=== PATIENT | female | born 1955 | race Caucasian/White ===

== ENCOUNTER 2020-05-08 07:46 | Outpatient (REF) | payer OTHER, SELFPAY ==
--- NOTE | ~2020-05-08 | XR_ITS ---
EXAMINATION: XR HIP, LEFT CLINICAL INFORMATION: Osteoarthritis left hip COMPARISON: None TECHNIQUE: Two views of the left hip and one view of the pelvis. FINDINGS: Bone alignment is normal. No fracture or dislocation is seen. The hip joints are normal appearing. Bones of the pelvis are normal. There are degenerative changes of the visualized lower lumbar spine. Soft tissues are unremarkable. XR/XR hip LT w PEL1V IMPRESSION: Normal left hip.
[2020-05-08 11:09] LABS: MANUAL DIFF FLAG NO
[2020-05-08 11:25] LABS: Basophils Percent Auto 0.6 % (0-2); Eosinophils Absolute Auto 0.2 X10*3/uL (0.0-0.4); Eosinophils Percent Auto 2.3 % (0-4); Hematocrit 42.4 % (37-47); Hemoglobin 14.2 g/dl (12.0-16.0); Imm Gran Abs Auto 0.02 X10*3/uL (0.00-0.03); Imm Gran Pct Auto 0.3 % (0.0-0.4); Lymphocytes Absolute Auto 2.4 X10*3/uL (1.2-4.9); Lymphocytes Percent Auto 34.9 % (20-40); Mean Corpuscular HGB Conc 33.5 g/dl (31.0-35.0); Mean Corpuscular Hemoglobin 29.6 pg (27.0-33.0); Mean Corpuscular Volume 88.5 fL (80-98); Mean Platelet Volume 10.2 fL (9.4-12.3); Monocytes Absolute Auto 0.5 X10*3/uL (0.1-1.2); Monocytes Percent Auto 7.9 % (2-11); Neutrophils Absolute Auto 3.7 X10*3/uL (2.0-8.3); Platelet Count 286 X10*3/uL (160-400); Red Blood Count 4.79 X10*6/uL (4.20-5.50); Red Cell Distribution Width 12.9 % (11.0-16.0); White Blood Count 6.8 X10*3/uL (4.8-10.8)
[2020-05-08 11:55] LABS: Microalbum/Creatinine Ratio Ur 12.6 ug/mg cr
[2020-05-08 12:11] LABS: Thyroid Stimulating Hormone 1.72 uIU/mL (0.32-4.0)
[2020-05-08 12:12] LABS: Alanine Aminotransferase 21 U/L (0-31); Albumin Level 4.4 g/dL (3.5-5.0); Alkaline Phosphatase 105 U/L (39-117); Anion Gap 16 (12-20); Aspartate Amino Transferase 25 U/L (5-31); Bilirubin Total 0.7 mg/dL (0.0-1.0); Blood Urea Nitrogen 11 mg/dL (9-16); Calcium 9.3 mg/dL (8.4-10.2); Carbon Dioxide 28 mmol/L (22-29); Chloride 102 mmol/L (96-108); Cholesterol 176 mg/dL; Estimated Glomerular Filt Rate > 60; Glucose Fasting 82 mg/dL (60-99); HDL Cholesterol 57 mg/dL; LDL Cholesterol Calculated 96 mg/dl; Sodium 142 mmol/L (135-145); Total Protein 7.2 g/dL (6.5-8.0); Triglycerides 115 mg/dL
== END 2020-05-08 07:47 | disposition home or self-care (01) ==
LOC: HO.HMGCLDS 07:46
PROVIDERS: PCP Internal Medicine; Visit Provider Internal Medicine
DX: M16.12 Unilateral primary osteoarthritis, left hip (principal); I10 Essential (primary) hypertension; E66.01 Morbid (severe) obesity due to excess calories
CPT/HCPCS: 36415; 73502; 80053; 80061; 82043; 84443; 85025

== ENCOUNTER 2020-07-01 15:57 | Outpatient (REF) | payer OTHER, SELFPAY ==
--- NOTE | ~2020-07-01 | MM_ITS ---
EXAMINATION: MM SCREENING DIGITAL BREAST TOMOSYNTHESIS, BILATERAL CLINICAL INFORMATION: Screening. Asymptomatic. The lifetime risk of breast cancer based on the Tyrer-Cuzick Model is 13%. COMPARISON: Mammography: 01/02/2019, 12/08/2017, 11/09/2016 targeted left breast ultrasound 11/13/2016. TECHNIQUE: Digital breast tomosynthesis is performed in both the craniocaudal and mediolateral oblique views along with computer-aided detection (CAD). Synthesized 2D images are generated from the tomosynthesis. Additional left MLO view is provided. FINDINGS: There are scattered areas of fibroglandular density (ACR BI-RADS breast composition Category b). There are no significant masses, abnormal calcifications, or other abnormalities. There is a known cyst central 12:00 left breast just under 1 cm similar to prior exam. The bilateral parenchymal pattern is similar to prior studies. No developing density. There is biopsy clip marker again noted posterior upper outer left breast. The axilla and skin contours are unremarkable. MM/MM tomosynthesis screening BI IMPRESSION: No mammographic evidence of malignancy. ASSESSMENT: BI-RADS 2: Benign RECOMMENDATION: Routine annual mammography screening. This patient's information was entered into a reminder system with a target due date for their next mammogram.
== END 2020-07-01 15:58 | disposition home or self-care (01) ==
LOC: HO.MAMMO 15:57
PROVIDERS: Visit Provider Internal Medicine
DX: Z12.31 Encounter for screening mammogram for malignant neoplasm of breast (principal)
CPT/HCPCS: 77063; 77067

== ENCOUNTER 2020-10-22 12:57 | Outpatient (REF) | payer OTHER, SELFPAY ==
[2020-10-22 13:44] LABS: Hematocrit 40.9 % (37-47); Mean Corpuscular HGB Conc 34.2 g/dl (31.0-35.0); Mean Corpuscular Hemoglobin 30.1 pg (27.0-33.0); Mean Platelet Volume 9.3 fL (9.4-12.3); Platelet Count 287 X10*3/uL (160-400); Red Blood Count 4.65 X10*6/uL (4.20-5.50); Red Cell Distribution Width 13.2 % (11.0-16.0); White Blood Count 9.2 X10*3/uL (4.8-10.8)
[2020-10-22 14:02] LABS: Alanine Aminotransferase 22 U/L (0-31); Albumin Level 4.3 g/dL (3.5-5.0); Alkaline Phosphatase 101 U/L (39-117); Anion Gap 13 (12-20); Aspartate Amino Transferase 19 U/L (5-31); Bilirubin Direct 0.3 mg/dL (0.0-0.5); Bilirubin Total 0.6 mg/dL (0.0-1.0); Blood Urea Nitrogen 13 mg/dL (9-16); Carbon Dioxide 29 mmol/L (22-29); Chloride 105 mmol/L (96-108); Cholesterol 185 mg/dL; Estimated Glomerular Filt Rate > 60; Glucose Random 89 mg/dL (60-115); HDL Cholesterol 63 mg/dL; LDL Cholesterol Calculated 105 mg/dl; Potassium 4.1 mmol/L (3.3-5.1); Sodium 143 mmol/L (135-145); Total Protein 7.1 g/dL (6.5-8.0); Triglycerides 85 mg/dL
[2020-10-22 14:23] LABS: Thyroid Stimulating Hormone 1.32 uIU/mL (0.32-4.0)
[2020-10-22 16:05] LABS: Glucose Urine UA NEG (NEG); Leukocyte Esterase Urine 1+ (NEG); Nitrite Urine NEG (NEG); Specific Gravity - Urine >= 1.030 (1.005-1.025); Urine Blood NEG (NEG); Urine Ketones NEG (NEG); Urine Protein NEG (NEG-TRACE)
[2020-10-22 16:06] LABS: Appearance Urine HAZY; Color Urine YELLOW
[2020-10-22 16:18] LABS: Bacteria Urine 1+ /LPF; Calcium Oxalate Crystals Urine TRACE /LPF; Mucus Urine 3+ /LPF; RBC Urine 0 /HPF (0); Renal Epithelial Cells Urine TRACE /LPF; Squamous Epithelial Cell Urine 1+ /LPF
== END 2020-10-22 12:58 | disposition home or self-care (01) ==
LOC: HO.LAB 12:57
PROVIDERS: PCP Internal Medicine; Visit Provider Internal Medicine
DX: I10 Essential (primary) hypertension (principal); K21.9 Gastro-esophageal reflux disease without esophagitis; M16.12 Unilateral primary osteoarthritis, left hip
CPT/HCPCS: 36415; 80048; 80061; 80076; 81001; 81003; 84443; 85027

== ENCOUNTER 2021-05-22 07:12 | Outpatient (REF) | payer OTHER, SELFPAY ==
--- NOTE | ~2021-05-22 | US_ITS ---
EXAMINATION: US ABDOMEN COMPLETE CLINICAL INFORMATION: Abnormal levels of other serum enzymes. COMPARISON: None. TECHNIQUE: Real-time imaging of the abdominal viscera. FINDINGS: PANCREAS: The body and the tail of pancreas is not visualized. The head of the pancreas appears homogeneous in echotexture. ABDOMINAL AORTA: The mid and the distal abdominal aorta are normal caliber. The proximal area is not seen. INFERIOR VENA CAVA: Visualized portions are normal. LIVER: Normal. The liver is normal in size. The liver contour is normal. Parenchymal echogenicity is normal. No focal hepatic lesion. There is no intrahepatic biliary duct dilatation seen. GALLBLADDER: The gallbladder is significantly contracted and cannot be fully evaluated. COMMON BILE DUCT: Normal in caliber measuring 0.3 cm in diameter. RIGHT KIDNEY: Normal. No hydronephrosis. No renal calculi or focal parenchymal lesions. The kidney measures 10.4 cm in maximum dimension. LEFT KIDNEY: Normal. No hydronephrosis. No renal calculi or focal parenchymal lesions. The kidney measures 10.7 cm in maximum dimension. SPLEEN: Normal. The spleen measures 9.3 cm in maximum dimension. FREE FLUID: None. US/US abdomen complete IMPRESSION: Significantly contracted gallbladder precludes further evaluation. The head of the pancreas is unremarkable. The body and the tail of pancreas and the proximal abdominal aorta are not visualized. The rest of the abdominal ultrasound is unremarkable
[2021-05-22 07:54] LABS: Hematocrit 40.3 % (37.0-47.0); Hemoglobin 13.6 g/dl (12.0-16.0); Mean Corpuscular HGB Conc 33.7 g/dl (31.0-35.0); Mean Corpuscular Volume 88.8 fL (80.0-98.0); Mean Platelet Volume 9.5 fL (9.4-12.3); Platelet Count 250 X10*3/uL (160-400); Red Blood Count 4.54 X10*6/uL (4.20-5.50); White Blood Count 5.7 X10*3/uL (4.8-10.8)
[2021-05-22 08:29] LABS: Alanine Aminotransferase 21 U/L (0-31); Albumin Level 4.3 g/dL (3.5-5.0); Alkaline Phosphatase 107 U/L (39-117); Anion Gap 12 (12-20); Aspartate Amino Transferase 21 U/L (5-31); Bilirubin Direct 0.3 mg/dL (0.0-0.5); Bilirubin Total 0.9 mg/dL (0.0-1.0); Blood Urea Nitrogen 12 mg/dL (9-16); Calcium 9.8 mg/dL (8.4-10.2); Carbon Dioxide 30 mmol/L (22-29); Chloride 103 mmol/L (96-108); Cholesterol 195 mg/dL; Estimated Glomerular Filt Rate > 60; Glucose Random 87 mg/dL (60-115); HDL Cholesterol 58 mg/dL; LDL Cholesterol Calculated 124 mg/dl; Sodium 141 mmol/L (135-145); Total Protein 7.1 g/dL (6.5-8.0); Triglycerides 68 mg/dL
[2021-05-22 08:41] LABS: Thyroid Stimulating Hormone 2.42 uIU/mL (0.32-4.0)
[2021-05-22 09:58] LABS: Appearance Urine HAZY; Color Urine YELLOW; Glucose Urine UA NEG (NEG); Leukocyte Esterase Urine 2+ (NEG); Nitrite Urine NEG (NEG); PH 6.5 (5.0-8.0); Specific Gravity - Urine 1.025 (1.005-1.025); Urine Blood TRACE (NEG); Urine Ketones NEG (NEG); Urine Protein TRACE MG/DL (NEG-TRACE)
[2021-05-22 11:00] LABS: Mucus Urine 2+ /LPF; Squamous Epithelial Cell Urine 1+ /LPF
== END 2021-05-22 07:13 | disposition home or self-care (01) ==
LOC: HO.US 07:12
PROVIDERS: PCP Internal Medicine; Visit Provider Internal Medicine
DX: K21.9 Gastro-esophageal reflux disease without esophagitis (principal); K80.20 Calculus of gallbladder without cholecystitis without obstruction; R74.8 Abnormal levels of other serum enzymes; I10 Essential (primary) hypertension
CPT/HCPCS: 36415; 76700; 80048; 80061; 80076; 81001; 84443; 85027

== ENCOUNTER 2021-07-04 07:18 | Outpatient (REF) | payer OTHER, SELFPAY ==
--- NOTE | ~2021-07-04 | MM_ITS ---
EXAMINATION: MM SCREENING DIGITAL BREAST TOMOSYNTHESIS, BILATERAL CLINICAL INFORMATION: Screening. Asymptomatic. The lifetime risk of breast cancer based on the Tyrer-Cuzick Model is 15%. COMPARISON: Mammography: 07/01/2020, 01/02/2019, 12/08/2017; targeted left breast ultrasound 11/13/2016 TECHNIQUE: Digital breast tomosynthesis is performed in both the craniocaudal and mediolateral oblique views along with computer-aided detection (CAD). Synthesized 2D images are generated from the tomosynthesis. FINDINGS: There are scattered areas of fibroglandular density (ACR BI-RADS breast composition Category b). There is fine fibronodular parenchymal pattern without architectural abnormality or significant mass. There is a chronic smooth nodule central left breast consistent with cysts on prior ultrasound.There are no abnormal calcifications. Biopsy clip marker again seen posterior upper outer left breast. The axilla and skin contours are unremarkable. Small dermal lesion again noted overlying the anterior upper right breast. MM/MM tomosynthesis screening BI IMPRESSION: No mammographic evidence of malignancy. ASSESSMENT: BI-RADS 2: Benign RECOMMENDATION: Routine annual mammography screening. This patient's information was entered into a reminder system with a target due date for their next mammogram.
== END 2021-07-04 07:19 | disposition home or self-care (01) ==
LOC: HO.MAMMO 07:18
PROVIDERS: Visit Provider Internal Medicine
DX: Z12.31 Encounter for screening mammogram for malignant neoplasm of breast (principal)
CPT/HCPCS: 77063; 77067

== ENCOUNTER 2022-03-25 07:12 | Outpatient (REF) | payer MEDICARE, SELFPAY ==
[2022-03-25 08:09] LABS: Alanine Aminotransferase 18 U/L (0-31); Albumin Level 4.1 g/dL (3.5-5.0); Alkaline Phosphatase 102 U/L (39-117); Anion Gap 16 (12-20); Aspartate Amino Transferase 19 U/L (5-31); Bilirubin Total 0.8 mg/dL (0.0-1.0); Blood Urea Nitrogen 14 mg/dL (9-16); Calcium 10.1 mg/dL (8.4-10.2); Carbon Dioxide 27 mmol/L (22-29); Chloride 103 mmol/L (96-108); Cholesterol 176 mg/dL; Estimated Glomerular Filt Rate > 60; Glucose Fasting 94 mg/dL (60-99); HDL Cholesterol 56 mg/dL; LDL Cholesterol Calculated 108 mg/dl; Sodium 142 mmol/L (135-145); Total Protein 6.7 g/dL (6.5-8.0); Triglycerides 62 mg/dL
[2022-03-25 10:15] LABS: Lipase 41 U/L (8-78)
[2022-03-25 10:52] LABS: Folate 18.4 ng/mL (> or = 4.0); TSH reflex Free T4 2.21 uIU/mL (0.32-4.0); Vitamin B12 570 pg/mL (200-900)
[2022-03-26 13:28] LABS: Transglutaminase Ab IgG <1.0 U/mL; Transglutaminase IgA <1.0 U/mL
[2022-03-30 15:14] LABS: Vitamin D 25-OH, D2 <4 ng/mL; Vitamin D 25-OH, D3 36 ng/mL; Vitamin D 25-OH, Total 36 ng/mL (30-100)
== END 2022-03-25 07:13 | disposition home or self-care (01) ==
LOC: HO.LAB 07:12
PROVIDERS: Absent Provider Nurse Practitioner Family; PCP Internal Medicine; Visit Provider Nurse Practitioner Family
DX: R10.11 Right upper quadrant pain (principal); R19.7 Diarrhea, unspecified; K59.00 Constipation, unspecified; K21.9 Gastro-esophageal reflux disease without esophagitis; E55.9 Vitamin D deficiency, unspecified; I10 Essential (primary) hypertension
CPT/HCPCS: 36415; 80053; 80061; 82306; 82607; 82746; 83690; 84443; 86364; 99202

== ENCOUNTER 2022-03-30 10:29 | Outpatient (REF) | payer MEDICARE, SELFPAY ==
[2022-04-06 21:18] LABS: Pancreatic Elastase-1 >500 mcg/g
== END 2022-03-30 10:30 | disposition home or self-care (01) ==
LOC: HO.LNP 10:29
PROVIDERS: Visit Provider Nurse Practitioner Family
DX: R10.9 Unspecified abdominal pain (principal); K21.9 Gastro-esophageal reflux disease without esophagitis
CPT/HCPCS: 82656; 87338

== ENCOUNTER → 2022-04-13 07:39 | Outpatient (REF) | payer MEDICARE, SELFPAY ==
--- NOTE | ~2022-04-13 | NM_ITS ---
EXAMINATION: BILIARY TRACT IMAGING STUDY CLINICAL INFORMATION: Gastroesophageal reflux disease without esophagitis. Right upper quadrant pain, GERD for 6 months.. Pain is intermittent. COMPARISON: No previous biliary scan is available for comparison. Abdominal ultrasound dated 05/22/2021 is available for comparison.. TECHNIQUE: Serial gamma scintillation camera images were obtained over the abdomen for a total observation period of 2 hours following the intravenous administration of 5.0 mCi Tc-99m Mebrofenin. FINDINGS: There is good concentration of activity in the liver by 5 minutes post injection. Biliary activity is visualized by 15 minutes. Small bowel is well visualized by 25 minutes. The gallbladder is not visualized at any time up to 2 hours post injection. On the delayed images at 2 hours there is almost complete clearance of activity from the liver and visualization of diffuse small bowel activity. NM/NM hepatobiliary wo pharm IMPRESSION: Nonvisualization the gallbladder is evidence of an obstructed cystic duct and strong evidence to suggest the diagnosis of acute cholecystitis. This can also be seen in chronic cholecystitis. The common bile duct is patent. Liver function appears normal. Because the gallbladder did not visualize, CCK stimulation and gallbladder ejection fraction were not performed.
== END ==
LOC: HO.NUCMED 07:39
PROVIDERS: PCP Internal Medicine; Visit Provider Nurse Practitioner Family
DX: K21.9 Gastro-esophageal reflux disease without esophagitis (principal); R10.11 Right upper quadrant pain
CPT/HCPCS: 78226; A9537

== ENCOUNTER 2022-04-14 15:01 | Outpatient (REF) | payer MEDICARE, SELFPAY ==
[2022-04-14 16:42] LABS: MANUAL DIFF FLAG NO
[2022-04-14 17:22] LABS: Basophils Absolute Auto 0.1 X10*3/uL (0.0-0.2); Basophils Percent Auto 0.5 % (0-2); Eosinophils Absolute Auto 0.2 X10*3/uL (0.0-0.4); Eosinophils Percent Auto 1.6 % (0-4); Hematocrit 41.1 % (37.0-47.0); Hemoglobin 14.1 g/dl (12.0-16.0); Imm Gran Abs Auto 0.02 X10*3/uL (0.00-0.03); Imm Gran Pct Auto 0.2 % (0.0-0.4); Lymphocytes Absolute Auto 3.7 X10*3/uL (1.2-4.9); Lymphocytes Percent Auto 38.7 % (20-40); Mean Corpuscular HGB Conc 34.3 g/dl (31.0-35.0); Mean Corpuscular Hemoglobin 29.7 pg (27.0-33.0); Mean Corpuscular Volume 86.7 fL (80.0-98.0); Mean Platelet Volume 9.8 fL (9.4-12.3); Monocytes Absolute Auto 0.6 X10*3/uL (0.1-1.2); Monocytes Percent Auto 6.7 % (2-11); Neutrophils Percent Auto 52.3 % (45-73); Platelet Count 293 X10*3/uL (160-400); Red Blood Count 4.74 X10*6/uL (4.20-5.50); White Blood Count 9.5 X10*3/uL (4.8-10.8)
[2022-04-14 17:31] LABS: Alanine Aminotransferase 18 U/L (0-31); Albumin Level 4.1 g/dL (3.5-5.0); Alkaline Phosphatase 125 U/L (39-117); Aspartate Amino Transferase 18 U/L (5-31); Bilirubin Direct < 0.2 mg/dL (0.0-0.5); Bilirubin Total 0.4 mg/dL (0.0-1.0); Gamma Glutamyl Transpeptidase 18 U/L (7-33)
== END 2022-04-14 15:02 | disposition home or self-care (01) ==
LOC: HO.HMGCLDS 15:01
PROVIDERS: PCP Internal Medicine; Visit Provider Nurse Practitioner Family
DX: R10.9 Unspecified abdominal pain (principal); R74.8 Abnormal levels of other serum enzymes; K80.20 Calculus of gallbladder without cholecystitis without obstruction
CPT/HCPCS: 36415; 80076; 82977; 85025

== ENCOUNTER → 2022-04-16 08:22 | Outpatient (BNVA) | payer MEDICARE, SELFPAY | PROVIDERS: PCP Internal Medicine; Referring Provider Nurse Practitioner Family; Visit Provider Surgery | DX: K81.1 Chronic cholecystitis (principal) | CPT/HCPCS: 99202 ==

== ENCOUNTER 2022-04-29 05:56 | Day surgery (SDC) | payer MEDICARE, SELFPAY ==
[2022-04-23 14:15] VITALS: BMI 31.8
--- NOTE | 2022-04-28 12:57 | HO.ANESPROP2 ---
Documented by User: Lupe Serna NP 04/28/22 12:59 HPI - Anesthesia Eval Consult details Narrative: 66yo F for Cholecystectomy Laparoscopic possible open PMFSH Active Problems Active Problems: All Active Problems (Updated 04/16/22 @ 09:07 by Nash Emmanuel MD) Annual physical exam (Acute) Cholelithiasis (Acute) Obesity (BMI 30.0-34.9) (Acute) Chronic cholecystitis (Acute) Class 2 severe obesity with body mass index (BMI) of 35 to 39.9 with serious comorbidity (Acute) Osteoarthritis of left hip (Acute) GERD (gastroesophageal reflux disease) (Acute) Essential (primary) hypertension (Acute) Past Medical History Medical History Class 2 severe obesity with body mass index (BMI) of 35 to 39.9 with serious comorbidity Essential (primary) hypertension GERD (gastroesophageal reflux disease) Osteoarthritis of left hip Family History Family History Father No problems noted. Mother No problems noted. Sister Breast cancer, Onset Age: 60 Maternal Grandmother Breast cancer Maternal Aunt Breast cancer Paternal Aunt Breast cancer Son No problems noted. Brother Heart attack Family/Other Breast cancer Surgical History Surgical History (Updated 04/23/22 @ 14:20 by Elvia Pretty RN) History of esophagogastroduodenoscopy (EGD) History of hysterectomy History of lumpectomy of left breast History of removal of cyst History of tubal ligation Social History Social History Housing: Condominium Alcohol intake: current Alcohol intake frequency: a few times a month Patient Tobacco Use Status: Never used Tobacco e-Cigarette/Vaping Use: Never Used Second Hand Smoke Exposure: Yes Use of substances other than those prescribed or required for medical reasons: No Are you DNR?: No Advance Directives: No Advance Directives Information Provided: Yes Recently lost weight without trying: No Nutrition Risks: No Nutritional Risk service: No Current occupational status: employed Current occupation: accounts payable, babysit Cognitive needs: No Hearing needs: No Vision needs: Yes (glasses) Meds Allergies Allergy/AdvReac Type Severity Reaction Status Date / Time No Known Allergies Allergy Verified 04/22/22 13:29 Home Medications Medication Instructions Recorded Confirmed Last Taken Type calcium citrate 315 mg-vitamin D3 1 tab PO DAILY 01/29/20 04/23/22 Unknown History 5 mcg (200 unit) tablet Exam Exam Date and Time: April 28, 2022 1257 Height,Weight and Vital Signs: Height 5 ft 2 in Weight 78.925 kg Pertinent Lab Results Pertinent Lab Results: Laboratory Tests 03/25/22 04/14/22 07:20 15:07 WBC 9.5 Hgb 14.1 Hct 41.1 Plt Count 293 Sodium 142 Potassium 4.0 Chloride 103 Carbon Dioxide 27 BUN 14 Creatinine 0.70 Assessment and Plan Assessment Anesthesia Assessment: Chart Reviewed Documented by User: Casandra Yo MD 04/29/22 10:39 [facility] Past Medical History Medical History Class 2 severe obesity with body mass index (BMI) of 35 to 39.9 with serious comorbidity Essential (primary) hypertension GERD (gastroesophageal reflux disease) Osteoarthritis of left hip Family History Family History Father No problems noted. Mother No problems noted. Sister Breast cancer, Onset Age: 60 Maternal Grandmother Breast cancer Maternal Aunt Breast cancer Paternal Aunt Breast cancer Son No problems noted. Brother Heart attack Family/Other Breast cancer Family history of problems with anesthesia: No Surgical History Surgical History (Updated 04/23/22 @ 14:20 by Elvia Pretty, PARMINDER) History of esophagogastroduodenoscopy (EGD) History of hysterectomy History of lumpectomy of left breast History of removal of cyst History of tubal ligation History of Problems with Anesthesia: No Social History Social History Housing: Condominium Alcohol intake: current Alcohol intake frequency: a few times a month Patient Tobacco Use Status: Never used Tobacco e-Cigarette/Vaping Use: Never Used Second Hand Smoke Exposure: Yes Use of substances other than those prescribed or required for medical reasons: No Are you DNR?: No Advance Directives: No Advance Directives Information Provided: Yes Recently lost weight without trying: No Nutrition Risks: No Nutritional Risk service: No Current occupational status: employed 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, babysit Cognitive needs: No Hearing needs: No Vision needs: Yes (glasses) Meds Allergies Allergy/AdvReac Type Severity Reaction Status Date / Time No Known Allergies Allergy Verified 04/22/22 13:29 Home Medications Medication Instructions Recorded Confirmed Last Taken Type calcium citrate 315 mg-vitamin D3 1 tab PO DAILY 01/29/20 04/23/22 Unknown History 5 mcg (200 unit) tablet Exam Airway Mallampati Class: II TM Dist: >3cm Neck ROM: Full Heart: rr Assessment and Plan Final Anesthetic Review Family History of Problems with Anesthesia: No History of Problems with Anesthesia: No NPO: Yes ASA Class: II Final Preanesthetic Review: No Changes in Pt Med Stat, Meds/Allgs Chart Reviewed, Consent Obtained/Reviewed and Anes Risks/Benef Reviewed Patient Risk: Low Procedure Risk: Low Anesthetic Plan Anesthetic Plan: GA Disposition: Standard PACU
[2022-04-29] VITALS (12 sets, daily range): BP systolic 150–179; BP diastolic 87–94; PULSE 67–79; RESP 16–18; TEMP 36.1–36.6; O2SAT 95–99; BMI 32.3
[2022-04-29] MEDS: Lactated Ringers 1,000 ML 100 ML IVCONT (06:40)
--- NOTE | 2022-04-29 07:28 | MHC.SHP ---
Pre-Procedural Eval Section A Date of Service: 04/29/22 The patient is an INPATIENT: No Changes since office visit: Yes Patient answered all questions; No Cold of Flu in the past 2 weeks, No New Medical Problems and No Changes in Medication The History & Physical has been completed within 30 days and I have reviewed it.: Yes Section B Chief Complaint: Chronic cholecystitis Allergies: Allergies Allergy/AdvReac Type Severity Reaction Status Date / Time No Known Allergies Allergy Verified 04/22/22 13:29 Plan Diagnosis/Plan: Unchanged I have reviewed the history and physical and performed a pertinent physical examination on my patient. No changes have occurred unless specified. Time Spent With Patient Time: Total time managing care of this patient today ____ minutes.
--- NOTE | 2022-04-29 07:39 | P.OP_ITS ---
Operative Note Operative Note Date of Service: 04/29/22 Narrative: Preoperative diagnosis: chronic cholecystitis Postoperative diagnosis: Same Procedure: Laparoscopic cholecystectomy Surgeon: Nash Emmanuel MD Grocery Bagger: CHANDLER Pandey; PORSCHE Koenig Anesthesia: General endotracheal Indications for procedure: 66-year-old female patient presenting with episodes of abdominal pain in the right upper quadrant found to have multiple gallstones within the gallbladder. Examination was consistent with a chronic cholecystitis due to cholelithiasis. Operative findings: Evidence of adhesions to the gallbladder surface suggestive of chronic cholecystitis. Multiple small gallbladder stones noted within the gallbladder. Specimen: gallbladder Estimated blood loss: Less than 2 mL Complications: non Procedure details: Patient was brought to the OR and placed in a supine position. After administering general anesthesia the patient's abdomen was prepped with ChloraPrep and draped in a sterile fashion. Local anesthesia consisting of 0.5% Sensorcaine without epinephrine was infiltrated in a periumbilical region. A 5 mm incision was made above the umbilicus in a transverse fashion. The Veress needle was then inserted while elevating abdominal cavity with towel clips. After positive drop test the abdomen was insufflated to a pressure of 15 mm of mercury. The Veress needle was then removed and a 5 mm trocar inserted. The camera was inserted in the abdomen explored. A 12 mm trocar was then placed in the epigastrium. Two 5 mm trocars placed in the right upper quadrant by the seed laboratory assistant. The patient was placed in reverse Trendelenburg positioning and rotated to the left. The gallbladder was grasped with the fundus and retracted cephalad by the seed laboratory assistant. The infundibulum was then grasped and retracted away from the liver bed, also by the seed laboratory assistant. The Dolphin dissected was then used by the surgeon to dissect the peritoneum off the infundibulum to reveal the junction with the cystic duct. Cystic artery was noted slightly medial and posterior to the cystic duct. After obtaining a critical view the cystic duct was doubly clipped and divided. The cystic artery was then doubly clipped and divided. The gallbladder was then dissected off the liver bed using electrocautery with an L hook. Hemostasis was assured all times using the electrocautery. When the gallbladder is completely dissected off the liver bed was placed in an Endo-Catch bag and brought out through the epigastric incision. The gallbladder was sent to pathology for further examination. The abdomen was then re-examined. The liver bed was irrigated and suctioned dry. No bleeding or bile leak could be identified. CO2 was then evacuated and all trocars removed. Skin was closed in all incisions using a subcuticular 4 0 Polysorb suture by both the surgeon and seed laboratory assistant. Sterile dressings consisting of Steri-Strips, 2 x 2 gauze, and Tegaderm were then applied. The patient tolerated the procedure well. Sponge instrument and needle counts reported as correct. The patient was transferred to PACU in stable condition.
[2022-04-29] MEDS: fentaNYL citrate/PF 100 MCG/2 ML VIAL 25 MCG IVPUSH ×3 (08:53→09:17)
[2022-04-29] MEDS: oxyCODONE HCl Immed Release 5 MG TABLET PO (09:00)
== END 2022-04-29 10:43 | disposition home or self-care (01) ==
PROVIDERS: PCP Internal Medicine; Visit Provider Surgery
PROC: 0FT44ZZ Resection of Gallbladder, Percutaneous Endoscopic Approach (ICD-10-PCS; CPT 47562; principal; 2022-04-29 07:30)
DX: K80.10 Calculus of gallbladder with chronic cholecystitis without obstruction (principal); K82.8 Other specified diseases of gallbladder; I10 Essential (primary) hypertension; K21.9 Gastro-esophageal reflux disease without esophagitis; E66.8 Other obesity; Z68.31 Body mass index [BMI] 31.0-31.9, adult; M16.12 Unilateral primary osteoarthritis, left hip; Z79.899 Other long term (current) drug therapy; Z98.51 Tubal ligation status; Z90.710 Acquired absence of both cervix and uterus
CPT/HCPCS: 47562; 88304; J1100; J2250; J2405; J3010

== ENCOUNTER → 2022-05-07 14:06 | Outpatient (BNVA) | payer MEDICARE, SELFPAY | PROVIDERS: PCP Internal Medicine; Referring Provider Internal Medicine; Visit Provider Surgery | DX: Z13.89 Encounter for screening for other disorder (principal) ==

== ENCOUNTER → 2022-05-27 08:46 | Outpatient (BNVA) | payer MEDICARE, SELFPAY | PROVIDERS: PCP Internal Medicine; Visit Provider Nurse Practitioner Family | DX: Z13.89 Encounter for screening for other disorder (principal) ==

== ENCOUNTER 2022-07-15 07:21 | Outpatient (REF) | payer MEDICARE, SELFPAY ==
--- NOTE | ~2022-07-15 | MM_ITS ---
EXAMINATION: MM SCREENING DIGITAL BREAST TOMOSYNTHESIS, BILATERAL CLINICAL INFORMATION: Screening. Asymptomatic. The lifetime risk of breast cancer based on the Tyrer-Cuzick Model is 15%. COMPARISON: Mammography: 07/04/2021, 07/01/2020, 01/02/2019 TECHNIQUE: Digital breast tomosynthesis is performed in both the craniocaudal and mediolateral oblique views along with computer-aided detection (CAD). Synthesized 2D images are generated from the tomosynthesis. FINDINGS: There are scattered areas of fibroglandular density (ACR BI-RADS breast composition Category b). There are no significant masses, abnormal calcifications, or other abnormalities. No architectural abnormality or developing density or significant change from prior studies. There are scattered parenchymal asymmetries similar to prior studies. Biopsy clip marker again seen posterior upper outer left breast. The axilla and skin contours are unremarkable. MM/MM tomosynthesis screening BI IMPRESSION: No mammographic evidence of malignancy. ASSESSMENT: BI-RADS 2: Benign RECOMMENDATION: Routine annual mammography screening. This patient's information was entered into a reminder system with a target due date for their next mammogram.
== END 2022-07-15 07:22 | disposition home or self-care (01) ==
LOC: HO.MAMMO 07:21
PROVIDERS: PCP Internal Medicine; Visit Provider Internal Medicine
DX: Z12.31 Encounter for screening mammogram for malignant neoplasm of breast (principal)
CPT/HCPCS: 77063; 77067

== ENCOUNTER 2022-09-03 10:07 | Outpatient (AMB) | payer MEDICARE, SELFPAY ==
--- NOTE | 2022-09-03 10:10 | MHC.PC.OV ---
Vital Signs 09/03/22 10:12 Height 5 ft 3 in Weight 176 lb 8 oz BMI 31.3 BP 130/82 Blood Pressure Location Lt brachial Position Sitting Pulse 71 Pulse Source Pulse Oximeter Pulse Oximetry (%) 99 Oxygen Delivery Method Room Air Intake Visit Reasons: cataract surgery 09/10/ & 09/17 Intake Note: Patient is here for a Pre-op for Cataract surgery scheduled with Dr Bellamy on 09/10/22 for right eye and 09/17/22for left eye. Refrigeration Mechanic Required: No Salvage Winder: Not Required per policy Accompanied by: Self / Same As Patient Allergies No Known Allergies Allergy (Verified 09/03/22 12:28) Medication List - Last Reconciled 09/03/22 by David Mendoza MD calcium citrate-vitamin D3 315 mg-5 mcg (200 unit) 1 tab PO DAILY hydrochlorothiazide 25 mg PO DAILY lisinopril 40 mg (2 x 20 mg) PO DAILY omeprazole 20 mg PO DAILY simethicone 125 mg PO BID-QID PRN Tobacco use date assessed: 09/03/22 Fall risk assessment: No Falls in past year Last assessed Fall Risk: 09/03/22 Dental Screening Dental Screen Date: 09/03/22 Did you have a dental visit in the last 12 months?: Yes Did you have a dental problem in the last 6 months where you did not have access to dental care?: No Was dental information given to patient?: Patient has dentist HPI cataract surgery 09/10/ & 09/17 HPI Details 66-year-old female presents to the office for a preop clearance. Patient is scheduled for bilateral cataract extraction. Procedure is to be done under [facility]. [facility] Medical History Class 2 severe obesity with body mass index (BMI) of 35 to 39.9 with serious comorbidity Essential (primary) hypertension GERD (gastroesophageal reflux disease) Osteoarthritis of left hip Surgical History History of esophagogastroduodenoscopy (EGD) History of hysterectomy History of lumpectomy of left breast History of removal of cyst History of tubal ligation Hx laparoscopic cholecystectomy (04/29/22) Family History Father No problems noted. Mother No problems noted. Sister Breast cancer, Onset Age: 60 Maternal Grandmother Breast cancer Maternal Aunt Breast cancer Paternal Aunt Breast cancer Son No problems noted. Brother Heart attack Family/Other Breast cancer Social History Housing: Condominium Alcohol intake: current Alcohol intake frequency: a few times a month Patient Tobacco Use Status: Never used Tobacco e-Cigarette/Vaping Use: Never Used Second Hand Smoke Exposure: Yes service: No Current occupational status: employed Current occupation: accounts payable, babysit Cognitive needs: No Hearing needs: No Vision needs: Yes (glasses) Questionnaire Thrive Questionnaire Date Thrive assessed: 04/22/22 LIDYA-7 AMB Questionnaire LIDYA-7 Date LIDYA - 7 assessed: 04/22/22 Source: Developed by Drs. Eddie Diamond, Tina Wilde, Orlando Churchill and colleagues, with an educational candice from [employer]. Physical exam (Primary Care) Vital Signs: Last Vital Signs Pulse 71 09/03/22 10:12 BP 130/82 09/03/22 10:12 Pulse Ox 99 09/03/22 10:12 Oxygen Delivery Method Room Air 09/03/22 10:12 BMI result Body Mass Index 31.3 Tobacco/Smoking Status: Tobacco use Status Tobacco use date assessed 09/03/22 09/03/22 10:15 Patient Tobacco Use Status Never used Tobacco 09/03/22 10:15 e-Cigarette/Vaping Use Never Used 09/03/22 10:15 Thrive Assessment: Date of Thrive Assessment Date Thrive assessed 04/22/22 09/03/22 10:15 Const General: cooperative, healthy appearing and comfortable HENMT Head: Yes normal to inspection and Yes atraumatic Eyes General: appearance normal, both eyes and all related structures Neck Neck: Yes normal visual inspection and Yes full ROM Chest Chest palpation & inspection: normal inspection of the chest Resp Effort & Inspection: normal respiratory effort Auscultation: clear to auscultation bilaterally Cardio Jugular venous distension: no JVD Palpation: normal PMI Rate: regular rate Heart sounds: S1 normal heart sound present and S2 normal heart sound present GI Palpation (GI): Soft to palpation and No hepatosplenomegaly present Extrem General: Yes normal to inspection and Yes full ROM Assessment and Plan Assessment & Plan (1) Essential (primary) hypertension: Code(s): I10 - Essential (primary) hypertension Plan: Patient can proceed for surgery. Continue medications up to the day of surgery and start immediately after the procedure. EKG and blood work reviewed. Orders: Orders Basic Metabolic Panel Today I10 - Essential (primary) hypertension, Z01.810 - Encounter for preprocedural cardiovascular examination Lipid Panel Today I10 - Essential (primary) hypertension, Z01.810 - Encounter for preprocedural cardiovascular examination Liver Panel Today I10 - Essential (primary) hypertension, Z01.810 - Encounter for preprocedural cardiovascular examination Thyroid Stimulating Hormone Today I10 - Essential (primary) hypertension, Z01.810 - Encounter for preprocedural cardiovascular examination ECG 12 lead EKG Today I10 - Essential (primary) hypertension, Z01.810 - Encounter for preprocedural cardiovascular examination Complete Blood Count no Diff Today I10 - Essential (primary) hypertension, Z01.810 - Encounter for preprocedural cardiovascular examination UA and rflx microscopic Today I10 - Essential (primary) hypertension, Z01.810 - Encounter for preprocedural cardiovascular examination Coding Level of Care Code Est Pt Level 4 (65007) Diagnoses Essential (primary) hypertension I10
[2022-09-03 10:12] VITALS: BP 130/82; PULSE 71; O2SAT 99; BMI 31.3
== END 2022-09-03 10:33 | disposition home or self-care (01) ==
PROVIDERS: PCP Internal Medicine; Visit Provider Internal Medicine
DX: I10 Essential (primary) hypertension (principal)
CPT/HCPCS: 99214

== ENCOUNTER 2022-09-03 10:57 | Outpatient (REF) | payer MEDICARE, SELFPAY ==
--- NOTE | 2022-09-03 11:02 | ECG_ITS ---
Test Reason : preop Blood Pressure : / mmHG Vent. Rate : 062 BPM Atrial Rate : 062 BPM P-R Int : 150 ms QRS Dur : 090 ms QT Int : 420 ms P-R-T Axes : 045 033 044 degrees QTc Int : 426 ms Sinus rhythm with occasional Premature ventricular complexes Otherwise normal ECG No previous ECGs available Referred By: David Mendoza Electronically Signed By:Terry Parks
== END 2022-09-03 10:58 | disposition home or self-care (01) ==
LOC: HO.LAB 10:57
PROVIDERS: PCP Internal Medicine; Visit Provider Internal Medicine
DX: Z01.810 Encounter for preprocedural cardiovascular examination (principal); I10 Essential (primary) hypertension
CPT/HCPCS: 93005

== ENCOUNTER → 2022-09-03 11:02 | Outpatient (BNV) | payer MEDICARE, SELFPAY | PROVIDERS: PCP Internal Medicine; Visit Provider Internal Medicine Cardiovascular Disease | DX: I49.3 Ventricular premature depolarization (principal) | CPT/HCPCS: 93010 ==

== ENCOUNTER 2022-09-04 06:13 | Outpatient (REF) | payer MEDICARE, SELFPAY ==
[2022-09-04 08:46] LABS: Appearance Urine Clear; Color Urine Yellow; Glucose Urine UA Negative (Negative); Leukocyte Esterase Urine Moderate (2+) (Negative); Nitrite Urine Negative (Negative); PH 5.5 (5.0-9.0); UMIC TRIGGER UA YES; Urine Blood Negative (Negative); Urine Ketones Negative (Negative); Urine Protein Negative (Neg-Trace)
[2022-09-04 08:48] LABS: Hematocrit 40.2 % (37.0-47.0); Hemoglobin 13.2 g/dl (12.0-16.0); Mean Corpuscular HGB Conc 32.8 g/dl (31.0-35.0); Mean Corpuscular Hemoglobin 29.3 pg (27.0-33.0); Mean Corpuscular Volume 89.3 fL (80.0-98.0); Platelet Count 264 X10*3/uL (160-400); Red Cell Distribution Width 12.9 % (11.0-16.0); White Blood Count 6.4 X10*3/uL (4.8-10.8)
[2022-09-04 08:49] LABS: Bacteria Urine None Seen (None Seen); Hyaline Casts Urine 0-2 /LPF (0-2); RBC Urine 0-2 /HPF (0-2)
[2022-09-04 09:41] LABS: Alanine Aminotransferase 16 U/L (0-31); Albumin Level 3.9 g/dL (3.5-5.0); Alkaline Phosphatase 101 U/L (39-117); Anion Gap 13 (12-20); Aspartate Amino Transferase 20 U/L (5-31); Bilirubin Direct 0.3 mg/dL (0.0-0.5); Bilirubin Total 0.7 mg/dL (0.0-1.0); Blood Urea Nitrogen 12 mg/dL (9-16); Calcium 9.8 mg/dL (8.4-10.2); Carbon Dioxide 29 mmol/L (22-29); Chloride 101 mmol/L (96-108); Cholesterol 184 mg/dL; Estimated Glomerular Filt Rate > 60; Glucose Random 73 mg/dL (60-115); HDL Cholesterol 60 mg/dL; LDL Cholesterol Calculated 113 mg/dl; Potassium 3.6 mmol/L (3.3-5.1); Sodium 139 mmol/L (135-145); Thyroid Stimulating Hormone 3.23 uIU/mL (0.32-4.0); Total Protein 7.1 g/dL (6.5-8.0); Triglycerides 59 mg/dL
== END 2022-09-04 06:14 | disposition home or self-care (01) ==
LOC: HO.LAB 06:13
PROVIDERS: PCP Internal Medicine; Visit Provider Internal Medicine
DX: Z01.810 Encounter for preprocedural cardiovascular examination (principal); I10 Essential (primary) hypertension
CPT/HCPCS: 36415; 80048; 80061; 80076; 81001; 84443; 85027

== ENCOUNTER 2022-12-09 07:42 | Outpatient (AMB) | payer MEDICARE, SELFPAY ==
--- NOTE | 2022-12-09 08:10 | A.OFFVIS_ITS ---
Intake Intake Visit Reasons: 6 Month FU Intake Note: Patient follow up for GERD. Patient cc: GERD on and off, and gassy. Denies any other GI issues. Cardiology Nurse Practitioner Required: No Accompanied by: Self / Same As Patient Allergies No Known Allergies Allergy (Verified 12/09/22 08:08) HPI 6 Month FU HPI Details LAST VISIT: GERD (gastroesophageal reflux disease) Continue current treatment with omeprazole. Patient was also encouraged to avoid dietary triggers and late night snacking. Staying upright for minimum 3 hours after meals discussed with patient. Postprandial abdominal bloating Occasional postprandial abdominal bloating. Discussed with patient will FODMAP diet. She can take simethicone on as needed basis. I will see patient in 6 months, sooner on as needed basis. Patient is agreeable to this plan and yahir rolandes understanding of instructions. She was given the opportunity to ask questions and all questions answered. TODAY'S VISIT Patient is here today. Patient reports that she has been feeling fairly well. Patient states that omeprazole is working. Patient states that she takes it every day and her symptoms of acid reflux are suppressed. Patient ran out for couple days and was without the medication and her symptoms of dyspepsia and severe acid reflux came back. Patient denies any nausea or vomiting. Reports to be moving her bowels well. Denies melena, hematochezia, unintentional weight loss or ribbon like stools. However patient reports that she has been getting very bloated. Patient states that she is very gassy. ? PENDING SALE TO [facility] Medical History Class 2 severe obesity with body mass index (BMI) of 35 to 39.9 with serious comorbidity Essential (primary) hypertension GERD (gastroesophageal reflux disease) Osteoarthritis of left hip Surgical History Hx laparoscopic cholecystectomy (04/29/22) History of lumpectomy of left breast History of esophagogastroduodenoscopy (EGD) History of hysterectomy History of tubal ligation History of removal of cyst Family History Father No problems noted. Mother No problems noted. Sister Breast cancer, Onset Age: 60 Maternal Grandmother Breast cancer Maternal Aunt Breast cancer Paternal Aunt Breast cancer Son No problems noted. Brother Heart attack Family/Other Breast cancer Social [facility] Alcohol intake: current Alcohol intake frequency: a few times a month Patient Tobacco Use Status: Never used Tobacco e-Cigarette/Vaping Use: Never Used Second Hand Smoke Exposure: Yes service: No Current occupational status: employed Current occupation: accounts payable, babysit Cognitive needs: No Hearing needs: No Vision needs: Yes (glasses) Review of Systems Const Denies weight gain and Denies weight loss ENT Reports no additional complaints, Denies dysphagia and Denies odynophagia Card Reports no additional complaints Resp Reports no additional complaints GI Denies abdominal pain, Denies belching, Denies melena, Denies bloating, Denies change in bowel habits, Denies dysphagia, Reports excessive flatus, Denies dyspepsia, Denies heartburn, Denies diarrhea, Denies loose stools, Denies nausea, Denies odynophagia and Denies vomiting Reports no additional complaints Musc Reports no additional complaints Neuro Reports no additional complaints Psych Reports no additional complaints Endo Reports no additional complaints Physical Exam Const General: healthy appearing, no acute distress and well developed Nutritional Appearance: well nourished Orientation/consciousness: patient oriented x3 HEENT Head: Yes normal to inspection, Yes normocephalic and Yes atraumatic Face and sinus: Yes normal facial exam Mouth: Normal oral and palatal mucosa present Throat: Yes posterior oropharynx normal, Yes tonsils normal and Yes uvula midline Eyes General: appearance normal, both eyes and all related structures Neck Neck: Yes normal visual inspection, Yes full ROM and Yes trachea midline Thyroid: Thyroid normal Resp Effort & Inspection: normal respiratory effort, able to speak in complete sentences, no tracheal deviation and symmetric chest movement Auscultation: clear to auscultation bilaterally Cardio Rate: regular rate Heart sounds: S1 normal heart sound present and S2 normal heart sound present GI Inspection: Yes normal to inspection and No distended Palpation (GI): Soft to palpation, not firm, nontender and No hepatosplenomegaly present Auscultation: normal bowel sounds General: Yes no CVA tenderness Back/Spine/Pelvis Back: no CVA tenderness Skin General skin exam: elasticity normal, turgor normal and dry skin Neuro General: patient oriented x3 Psych Appearance: grossly normal Mental Status: mental status grossly normal Affect: normal affect Assessment & Plan Assessment & Plan (1) GERD (gastroesophageal reflux disease): Code(s): K21.9 - Gastro-esophageal reflux disease without esophagitis Qualifiers: Esophagitis presence: without esophagitis Qualified Code(s): K21.9 - Gastro-esophageal reflux disease without esophagitis (2) Postprandial abdominal bloating: Code(s): R14.0 - Abdominal distension (gaseous) Plan Continue omeprazole in the morning. I will add famotidine at bedtime. Patient can take simethicone or abdominal bloating. Discussed with patient avoiding dietary triggers. Low FODMAP diet discussed with patient. Patient had negative Cologuard in February. Denies melena, hematochezia, unintentional weight loss or ribbon like stools. Denies any dyspepsia, dysphagia or odynophagia. Continue avoiding dietary triggers and late night snacking. Staying upright for minimum 3 hours after meals discussed with patient. I will see her in 6 months, sooner on an as-needed basis. Patient is agreeable to this plan and verbalizes understanding of instructions. She was given a the opportunity to ask questions and all questions answered. Thank you for allowing me to participate in her care Medications: New famotidine (Pepcid) 20 mg PO BEDTIME 30 tabs 3RF K21.9 - Gastro-esophageal reflux disease without esophagitis Refilled simethicone 125 mg PO BID-QID PRN 120 caps 3RF abdominal distention omeprazole 20 mg PO DAILY 90 caps 1RF Coding Level of Care Code Est Pt Level 3 (40422) Diagnoses Gastroesophageal reflux disease without esophagitis K21.9 Esophagitis presence: without esophagitis Postprandial abdominal bloating R14.0 Time Spent (min) 25 Comment 15 Minutes spent with patient and additional 10 minutes spent reviewing her records
== END 2022-12-09 08:31 | disposition home or self-care (01) ==
PROVIDERS: Visit Provider Nurse Practitioner Family
DX: K21.9 Gastro-esophageal reflux disease without esophagitis (principal); R14.0 Abdominal distension (gaseous)
CPT/HCPCS: 99213

== ENCOUNTER → 2022-12-09 07:42 | Outpatient (BNVA) | payer MEDICARE, SELFPAY | PROVIDERS: Visit Provider Nurse Practitioner Family | DX: K21.9 Gastro-esophageal reflux disease without esophagitis (principal); R14.0 Abdominal distension (gaseous); Z79.899 Other long term (current) drug therapy | CPT/HCPCS: 99212 ==

== ENCOUNTER 2023-01-04 06:18 | Emergency (ER) | payer MEDICARE, SELFPAY ==
--- NOTE | ~2023-01-04 | CT_ITS ---
EXAMINATION: CT ABDOMEN AND PELVIS WITH CONTRAST CLINICAL INFORMATION: Bloody mucoid stool and lower abdominal pain. COMPARISON: None available. TECHNIQUE: Multidetector volumetric images were obtained from the superior aspect of the liver through the pubic symphysis following administration 85 mL of Omnipaque 350 intravenous contrast. Sagittal and coronal reformatted images were obtained on the technologist's workstation. Oral contrast: No This CT examination was performed using dose optimization techniques as appropriate, variously including the following: *Automated exposure control *Adjustment of mA and/or kV according to patient size (this includes techniques or standardized protocols for targeted exams where dose is matched to indication/reason for exam; i.e. extremities or head) *Use of iterative reconstruction technique DLP: 553 mGy-cm FINDINGS: CT examination demonstrates a 10 cm long segment of circumferentially thickened sigmoid colon, with the wall measuring up to 16 mm. Perisigmoid infiltration and a small amount of perisigmoid fluid are evident. The colonic lumen is narrowed. Hypodensity is evident within the sigmoid colonic wall. There are adjacent prominent lymph nodes nodes in the sigmoid mesentery, the largest measuring 10 mm. Mild sigmoid diverticulosis is evident elsewhere in the sigmoid colon. No drainable collection or free air is evident. LUNG BASES: There is a large sliding hiatal hernia. LIVER, GALLBLADDER, AND BILIARY TREE: The liver is normal in size, shape, and attenuation. Mild intrahepatic and extrahepatic biliary ductal prominence is likely related to prior cholecystectomy. PANCREAS: Unremarkable. SPLEEN: Unremarkable. ADRENAL GLANDS: Unremarkable. KIDNEYS AND URETERS: The kidneys are normal in size, shape, and attenuation. No hydronephrosis, hydroureter, or calculi seen. No perinephric stranding. BLADDER: Unremarkable. GASTROINTESTINAL TRACT: See above for discussion of the abnormal thickened sigmoid colon.. There is a large hiatal hernia. The small bowel is unremarkable. The appendix is unremarkable. ABDOMINAL WALL: No significant hernia is appreciated. LYMPH NODES: Normal. VASCULAR: Unremarkable. PELVIC VISCERA: The uterus is not identified and presumably surgically absent. There is a 16 mm simple appearing cyst in the left adnexa, for which no specific imaging follow-up is needed. OSSEOUS STRUCTURES: Scoliosis is evident, convex left in the mid lumbar spine with associated advanced degenerative changes. There are no suspicious bone lesions. CT/CT abdomen pelvis w IV con IMPRESSION: 1. Circumferential hypodense thickening of the mid sigmoid colon with luminal narrowing, extending for approximately 10 cm with associated perisigmoid infiltration, small fluid and mesenteric lymph nodes. Differential considerations include both acute sigmoid diverticulitis and colonic carcinoma. Colonoscopy is recommended when the patient is stable. These findings were reported to Jessica Guidry in the [facility] at at the time of interpretation on 01/04/2023 at 9:35 AM 2. No abscess or drainable collection. 3. Incidental findings include large sliding hiatal hernia; surgically absent uterus and gallbladder; and scoliosis with associated lumbar degenerative changes. Fleischner guidelines were followed.
[2023-01-04 06:19] VITALS: BP 131/84; PULSE 67; RESP 18; TEMP 36.8; O2SAT 95; BMI 33.1
[2023-01-04 07:07] LABS: MANUAL DIFF FLAG NO
[2023-01-04 07:10] LABS: Appearance Urine Clear; Color Urine Dark Yellow; Glucose Urine UA Negative (Negative); Leukocyte Esterase Urine Trace (Negative); Nitrite Urine Negative (Negative); Specific Gravity - Urine 1.015 (1.005-1.025); UMIC TRIGGER UACC YES; Urine Blood Small (1+) (Negative); Urine Ketones 15 mg/dL (Negative); Urine Protein 30 (1+) mg/dL (Neg-Trace)
[2023-01-04 07:13] LABS: Basophils Percent Auto 0.3 % (0-2); Eosinophils Absolute Auto 0.1 X10*3/uL (0.0-0.4); Eosinophils Percent Auto 0.5 % (0-4); Hematocrit 38.5 % (37.0-47.0); Hemoglobin 12.8 g/dl (12.0-16.0); Imm Gran Abs Auto 0.04 X10*3/uL (0.00-0.03); Imm Gran Pct Auto 0.4 % (0.0-0.4); Lymphocytes Percent Auto 18.7 % (20-40); Mean Corpuscular HGB Conc 33.2 g/dl (31.0-35.0); Mean Corpuscular Hemoglobin 29.4 pg (27.0-33.0); Mean Corpuscular Volume 88.3 fL (80.0-98.0); Mean Platelet Volume 9.2 fL (9.4-12.3); Monocytes Absolute Auto 1.1 X10*3/uL (0.1-1.2); Neutrophils Absolute Auto 7.6 x10*3/uL (2.0-8.3); Neutrophils Percent Auto 70.1 % (45-73); Platelet Count 277 X10*3/uL (160-400); Red Blood Count 4.36 X10*6/uL (4.20-5.50); Red Cell Distribution Width 13.1 % (11.0-16.0); White Blood Count 10.9 X10*3/uL (4.8-10.8)
[2023-01-04 07:23] LABS: COVID-19 Test Negative (Negative); IDNOW Serial# 08D9AD1C
[2023-01-04 07:24] LABS: Alanine Aminotransferase 19 U/L (0-31); Albumin Level 3.9 g/dL (3.5-5.0); Alkaline Phosphatase 105 U/L (39-117); Anion Gap 13 (12-20); Aspartate Amino Transferase 22 U/L (5-31); Bilirubin Total 1.6 mg/dL (0.0-1.0); Blood Urea Nitrogen 7 mg/dL (9-16); Calcium 9.5 mg/dL (8.4-10.2); Carbon Dioxide 26 mmol/L (22-29); Chloride 103 mmol/L (96-108); Creatinine Clr Calc Pharmacy 83.2; Estimated Glomerular Filt Rate > 60; Glucose Random 97 mg/dL (60-115); Potassium 3.3 mmol/L (3.3-5.1); Sodium 139 mmol/L (135-145); Total Protein 7.4 g/dL (6.5-8.0)
--- NOTE | 2023-01-04 07:26 | ED_ITS ---
HPI - Abdominal Pain General Chief Complaint: Abdominal Pain Stated Complaint: appendix pain? unable to defecate Time Seen by Provider: 01/04/23 07:20 Source: patient, RN notes reviewed and old records reviewed Mode of arrival: ambulatory Limitations: no limitations History of Present Illness HPI narrative: 67-year-old female with past medical history osteoarthritis, GERD, HTN, s/p cholecystectomy, presenting to the ED complaining of lower abdominal pain x2 days with constipation and low-grade fever T-max 100.0 degrees. Reports passing small hard bloody mucus stools. Is passing flatus. Denies fever, chills, nausea/vomiting, dysuria/hematuria, flank pain, recent travel. denies taking AC MD elicited complaint: abdominal pain Related Data Home Medications Medication Instructions Recorded Confirmed calcium citrate 315 mg-vitamin D3 1 tab PO DAILY 01/29/20 09/03/22 5 mcg (200 unit) tablet Previous Rx's Medication Instructions Recorded hydrochlorothiazide 25 mg tablet 25 mg PO DAILY #90 tabs 04/14/22 lisinopril 20 mg tablet 40 mg (2 x 20 mg) PO DAILY #180 04/14/22 tabs famotidine 20 mg tablet (Pepcid) 20 mg PO BEDTIME #30 tabs 12/09/22 omeprazole 20 mg capsule,delayed 20 mg PO DAILY #90 caps 12/09/22 release simethicone 125 mg capsule 125 mg PO BID-QID PRN abdominal 12/09/22 distention #120 caps amoxicillin 875 mg-potassium 1 tab PO BID 7 days #14 tabs 01/04/23 clavulanate 125 mg tablet Allergies Allergy/AdvReac Type Severity Reaction Status Date / Time No Known Allergies Allergy Verified 01/04/23 06:22 Review of Systems Review of Systems Constitutional: No Fever, No Chills, No Fatigue, No Malaise ENT/Mouth: No Hearing loss, No Ear Pain, No Nasal Congestion, No Sinus Pain, No Hoarseness, No sore throat, No Rhinorrhea, No Swallowing Difficulty Eyes: No Eye Pain, No Swelling, No Redness, No Foreign Body, No Discharge, No Vision Changes Cardiovascular: No Chest Pain, No SOB, No Dyspnea on Exertion, No Orthopnea, No Edema, No Palpitations Respiratory: No Cough, No Sputum, No Wheezing, No Smoke Exposure, No Dyspnea Gastrointestinal: No Nausea, No Vomiting, No Diarrhea, No Constipation, No Abdominal pain, No Hematochezia, No Melena Genitourinary: No irregular bleeding, No Dysuria, No Urinary Frequency, No Hematuria, No Urinary Incontinence/retention, No Urgency, No Flank Pain, No Urinary Flow Changes, No Hesitancy Musculoskeletal: No joint pain, No Myalgias, No Joint Swelling Skin: No Skin Lesions, No rash Neuro: No Weakness, No Numbness, No Paresthesias, No Loss of Consciousness, No Dizziness, No Headache Psych: No Anxiety/Panic, No Depression, No SI/HI/AH/VH, No Social Issues, Heme/Lymph: No Bruising, No Bleeding,No Lymphadenopathy Endocrine: No Polyuria, No Polydipsia, No Temperature Intolerance Yes all other systems are reviewed and are negative Constitutional: Reports as per [facility] Past Medical History Attestation statement: The following information was validated with the patient. Source: old records reviewed Medical History Class 2 severe obesity with body mass index (BMI) of 35 to 39.9 with serious comorbidity Osteoarthritis of left hip GERD (gastroesophageal reflux disease) Essential (primary) hypertension Surgical History Hx laparoscopic cholecystectomy (04/29/22) History of lumpectomy of left breast History of esophagogastroduodenoscopy (EGD) History of hysterectomy History of tubal ligation History of removal of cyst Family History Family History Father No problems noted. Mother No problems noted. Sister Breast cancer, Onset Age: 60 Maternal Grandmother Breast cancer Maternal Aunt Breast cancer Paternal Aunt Breast cancer Son No problems noted. Brother Heart attack Family/Other Breast cancer Social History Social History Housing: Condominium Alcohol intake: current Alcohol intake frequency: a few times a week Patient Tobacco Use Status: Never used Tobacco Smoked in Last 30 Days: No e-Cigarette/Vaping Use: Never Used Second Hand Smoke Exposure: Yes Use of substances other than those prescribed or required for medical reasons: No Advance Directives: Yes Advance Directives Information Provided: Yes Advance Directives on File: No service: No Current occupational status: employed Current occupation: accounts payable, babysit Cognitive needs: No Hearing needs: No Vision needs: Yes (glasses) Physical Exam ED Vital Signs: Vital Signs - 24 hr 01/04/23 06:19 01/04/23 07:39 01/04/23 08:36 Temperature 98.2 F Pulse Rate 67 87 89 Respiratory Rate 18 18 16 Blood Pressure 131/84 150/91 H 151/85 H Pulse Oximetry 95 98 97 Oxygen Delivery Method Room Air Room Air Room Air 01/04/23 10:21 Temperature Pulse Rate 84 Respiratory Rate 16 Blood Pressure 141/89 H Pulse Oximetry 96 Oxygen Delivery Method Room Air BMI result Body Mass Index 33.1 Const General: cooperative, healthy appearing and no acute distress Orientation/consciousness: patient oriented x3 Limitations: no limitations HENMT Head: Yes normal to inspection and Yes atraumatic Ears: hearing grossly normal bilaterally General nose exam: Normal external nose present Face and sinus: Yes normal facial exam Eyes General: appearance normal, both eyes and all related structures EOM: EOMs intact bilaterally Neck Neck: Yes normal visual inspection and Yes no meningeal signs Resp Effort & Inspection: normal respiratory effort and no respiratory distress Auscultation: clear to auscultation bilaterally Cardio Rate: regular rate Heart sounds: S1 normal heart sound present and S2 normal heart sound present GI Inspection: Yes normal to inspection Palpation (GI): Soft to palpation, Tenderness to palpation present (GI) (mild lower abdominal) with no rebound tenderness, no guarding and not rigid Rectal Exam - Female: visual inspection normal General: Yes no CVA tenderness Back/Spine/Pelvis Back: no CVA tenderness Skin Rashes: no rashes Wounds: no wounds Neuro General: patient oriented x3, tone normal and no meningeal signs Cranial nerves: Yes CN's II-XII intact bilaterally Gait exam (Neuro): Normal gait present Extrem General: Yes normal to inspection Course Course Course Narrative: -0923--no leukocytosis. H&H stable. Total bilirubin mildly elevated. Labs otherwise reassuring -UA contaminated -occult stool positive 1009--CT abdomen pelvis w IV con IMPRESSION: 1. Circumferential hypodense thickening of the mid sigmoid colon with luminal narrowing, extending for approximately 10 cm with associated perisigmoid infiltration, small fluid and mesenteric lymph nodes. Differential considerations include both acute sigmoid diverticulitis and colonic carcinoma. Colonoscopy is recommended when the patient is stable. These findings were reported to Jessica Guidry in the [facility] at at the time of interpretation on 01/04/2023 at 9:35 AM 2. No abscess or drainable collection. 3. Incidental findings include large sliding hiatal hernia; surgically absent uterus and gallbladder; and scoliosis with associated lumbar degenerative changes. Fleischner guidelines were followed. > Case d/w GI, Dr. Monae to ensure close f/u for colonoscopy, the office will contact patient in get in next week. Will treat for outpatient diverticulitis in the meantime, results discussed with patient, stressed importance of needed close follow-up Results discussed with patient including worrisome signs and symptoms and strict return precautions, and when to return to the emergency department. They verbalized understanding and feel safe for discharge at this time. Medical Decision Making Medical Decision Making MDM Narrative: 67-year-old female with past medical history osteoarthritis, GERD, HTN, s/p cholecystectomy, presenting to the ED complaining of lower abdominal pain x2 days with constipation and low-grade fever T-max 100.0 degrees. Reports passing small hard bloody mucus stools. On exam vital signs stable, NAD, nontoxic appearing, abdomen soft with mild lower tenderness, no rebound or guarding, no hemorrhoids appreciated on rectal exam. No appreciable fecal impaction. Concern for constipation vs diverticulitis/colitis vs lower GI bleed vs ?Appendicitis rule out UTI/metabolic abnormalities. Low suspicion for ischemic bowel Plan: Labs, UA, occult stool, CT AP, IVF Please refer to course for remaining clinical decision making, interpretation of labs/imaging results, and discussions with consultants and/or family members. Differential Diagnosis Differential Diagnoses: The differential diagnosis associated with the presentation includes As above Admission/Observation Consideration of admission/observation: Escalation of care including admission/observation considered Consult Healthcare Provider Management of the patient was discussed with: Bottling Line Operator (Dr. Monae) Lab Data [facility] Lab Attestation statement: I reviewed the patient's lab results. 01/04/23 07:03 01/04/23 07:03 Labs: Lab Results 01/04/23 01/04/23 Range/Units 07:03 07:34 WBC 10.9 H (4.8-10.8) X10*3/uL RBC 4.36 (4.20-5.50) X10*6/uL Hgb 12.8 (12.0-16.0) g/dl Hct 38.5 (37.0-47.0) % MCV 88.3 (80.0-98.0) fL MCH 29.4 (27.0-33.0) pg MCHC 33.2 (31.0-35.0) g/dl RDW 13.1 (11.0-16.0) % Plt Count 277 (160-400) X10*3/uL MPV 9.2 L (9.4-12.3) fL Immature Gran % (Auto) 0.4 (0.0-0.4) % Neut % (Auto) 70.1 (45-73) % Lymph % (Auto) 18.7 L (20-40) % Candler % (Auto) 10.0 (2-11) % Eos % (Auto) 0.5 (0-4) % Baso % (Auto) 0.3 (0-2) % Lymph # (Auto) 2.0 (1.2-4.9) X10*3/uL Candler # (Auto) 1.1 (0.1-1.2) X10*3/uL Eos # (Auto) 0.1 (0.0-0.4) X10*3/uL Baso # (Auto) 0.0 (0.0-0.2) X10*3/uL Abs Immat Gran (auto) 0.04 H (0.00-0.03) X10*3/uL Absolute Neuts (auto) 7.6 (2.0-8.3) x10*3/uL Absolute Nucleated RBC 0.000 (0.0-0.012) X10*3/uL Nucleated RBC % (auto) 0.0 (0.0-0.2) /100WBC Sodium 139 (135-145) mmol/L Potassium 3.3 (3.3-5.1) mmol/L Chloride 103 (96-108) mmol/L Carbon Dioxide 26 (22-29) mmol/L Anion Gap 13 (12-20) BUN 7 L (9-16) mg/dL Creatinine 0.66 (0.5-1.4) mg/dL Estim Creat Clear Calc 83.2 Estimated GFR > 60 Random Glucose 97 (60-115) mg/dL Calcium 9.5 (8.4-10.2) mg/dL Magnesium 2.1 (1.6-2.6) mg/dL Total Bilirubin 1.6 H (0.0-1.0) mg/dL AST 22 (5-31) U/L ALT 19 (0-31) U/L Alkaline Phosphatase 105 (39-117) U/L Total Protein 7.4 (6.5-8.0) g/dL Albumin 3.9 (3.5-5.0) g/dL Lipase 13 (8-78) U/L Urine Color Dark Yellow Urine Appearance Clear Urine pH 6.0 (5.0-9.0) Ur Specific Leslie 1.015 (1.005-1.025) Urine Protein 30 (1+) H (Neg-Trace) mg/dL Urine Glucose (UA) Negative (Negative) mg/dL Urine Ketones 15 (Negative) mg/dL Urine Blood Small (1+) H (Negative) Urine Nitrite Negative (Negative) Ur Leukocyte Esterase Trace H (Negative) Urine RBC 3-5 H (0-2) /HPF Urine WBC 6-10 (0-5) /HPF Ur Squamous Epith Cells 11-20 (0-2) /HPF Urine Bacteria None Seen (None Seen) Hyaline Casts 6-10 (0-2) /LPF Granular Casts Present Stool Occult Blood POSITIVE (NEGATIVE) COVID-19 (IRENE) Negative (Negative) COVID-19 Clin Com See Note Influenza Type A (GOMEZ) Negative (Negative) Influenza Type B (GOMEZ) Negative (Negative) Influenza A & B Note See Note Radiology Impression Discussion of test interpretation with radiology: I have reviewed the radiologist's reading. External Record Review External record reviewed: Inpatient record, Office record, Outpatient record, Prior outpatient labs, Prior outpatient radiology, Primary care record and Outside ED record Tests considered The following testing was considered but not selected: As above Prescription Management I considered prescription management with: Pain Medication Chronic Conditions Patient?s care impacted by: Hypertension Medications Administered Discontinued Medications Generic Name Dose Route Start Last Admin Trade Name Freq PRN Reason Stop Dose Admin Sodium Chloride 1,000 mls @ 999 mls/hr 01/04/23 07:45 01/04/23 09:41 Ns IV 01/04/23 08:45 Infused .Q1H1M RACHEL Infusion Iohexol 100 ml 01/04/23 08:30 01/04/23 08:30 Iohexol 350 Mg/Ml 100 Ml Infus..Btl IV 01/04/23 08:31 85 ml ONCE ONE Administration Discharge Plan Discharge Clinical Impression: Sigmoid diverticulitis, Colonic thickening Patient Disposition: Home, Self-Care Instructions: Diverticulitis (ED), Diverticulitis Diet (ED) Additional Instructions: Your blood work is reassuring. Your stool does have blood in it Your CT scan is concerning for possible diverticulitis, which is an infection treated with antibiotics, please take Augmentin as prescribed However her CT scan is also concerning for possible mass/malignancy, this needs to be confirmed and further evaluated with colonoscopy and potential biopsy Please follow-up with our operations research group manager for outpatient colonoscopy, the office should contact you, if they do not contact you please call the office If symptoms persist or worsen, pain becomes unbearable you constant or worsening bleeding, nausea/vomiting return to the emergency department Prescriptions: New amoxicillin-pot clavulanate 875-125 mg tablet 1 tab PO BID 7 Days Qty: 14 0RF No Action calcium citrate-vitamin D3 315 mg-5 mcg (200 unit) tablet 1 tab PO DAILY hydrochlorothiazide 25 mg tablet 25 mg PO DAILY Qty: 90 1RF lisinopril 20 mg tablet 40 mg PO DAILY Qty: 180 1RF simethicone 125 mg capsule 125 mg PO BID-QID PRN (Reason: abdominal distention) Qty: 120 3RF omeprazole 20 mg capsule,delayed release(DR/EC) 20 mg PO DAILY Qty: 90 1RF famotidine [Pepcid] 20 mg tablet 20 mg PO BEDTIME Qty: 30 3RF Referrals: Eddie Monae MD [Physician] -
[2023-01-04 07:27] LABS: Bacteria Urine None Seen (None Seen); Granular Casts Urine Present; UACC Culture Trigger YES
[2023-01-04 07:28] LABS: IDNOW Serial# BCCEAD1C; Influenza A Negative (Negative); Influenza B2 Negative (Negative)
[2023-01-04 07:39] VITALS: BP 150/91; PULSE 87; RESP 18; O2SAT 98
[2023-01-04] MEDS: 0.9 % Sodium Chloride 1,000 ML 999 ML IV (07:45)
[2023-01-04 07:46] LABS: OBS1 POSITIVE (NEGATIVE)
[2023-01-04 07:47] LABS: OBS Int Ctl Valid YES
--- NOTE | 2023-01-04 07:50 | PC.NURSE ---
pt is alert and oriented, skin pwd, respirations even and unlabored, pt reports lower abd pain that started yesterday, denies nausea/ vomiting and feels like she is constipated last good bowel movement was on Wednesday. vs stable
[2023-01-04 07:55] LABS: Lipase 13 U/L (8-78); Magnesium 2.1 mg/dL (1.6-2.6)
[2023-01-04] MEDS: iohexoL 350 MG/ML 100 ML INFUS..BTL IV (08:30)
[2023-01-04 08:36] VITALS: BP 151/85; PULSE 89; RESP 16; O2SAT 97
[2023-01-04 10:21] VITALS: BP 141/89; PULSE 84; RESP 16; O2SAT 96
== END 2023-01-04 10:55 | disposition home or self-care (01) ==
PROVIDERS: Physician Assistant; Emergency Provider Emergency Medicine; PCP Internal Medicine
DX: K57.32 Diverticulitis of large intestine without perforation or abscess without bleeding (principal); R10.30 Lower abdominal pain, unspecified; I10 Essential (primary) hypertension; K21.9 Gastro-esophageal reflux disease without esophagitis; Z90.49 Acquired absence of other specified parts of digestive tract; Z90.710 Acquired absence of both cervix and uterus; Z11.52 Encounter for screening for COVID-19
CPT/HCPCS: 74177; 80053; 81001; 82272; 83690; 83735; 85025; 87086; 87502; 87635; 96360; 96361; 99284; Q9967

== ENCOUNTER 2023-01-28 09:20 | Outpatient (REF) | payer MEDICARE, SELFPAY ==
--- NOTE | ~2023-01-28 | CT_ITS ---
EXAMINATION: CT ABDOMEN AND PELVIS WITH CONTRAST CLINICAL INFORMATION: Abdominal pain. COMPARISON: 01/04/2023 TECHNIQUE: Multidetector volumetric images were obtained from the superior aspect of the liver through the pubic symphysis following administration 85 mL of Omnipaque 350 intravenous contrast. Sagittal and coronal reformatted images were obtained on the technologist's workstation. Oral contrast: No This CT examination was performed using dose optimization techniques as appropriate, variously including the following: *Automated exposure control *Adjustment of mA and/or kV according to patient size (this includes techniques or standardized protocols for targeted exams where dose is matched to indication/reason for exam; i.e. extremities or head) *Use of iterative reconstruction technique DLP: 552 mGy-cm FINDINGS: LUNG BASES: No pulmonary consolidation or pleural effusion. 0.5 cm subpleural nodule of the right lower lobe is unchanged compared to 01/04/2023. Based on Fleischner Society guidelines, no chest CT imaging follow-up is required/recommended. HEPATOBILIARY: The liver has normal size, shape, and attenuation. Gallbladder is surgically absent. No dilated bile ducts. PANCREAS: No edema, pancreatic ductal dilatation or mass. SPLEEN: Normal. ADRENAL GLANDS: Normal. KIDNEYS AND URETERS: The kidneys enhance symmetrically and have normal size and cortical thickness. No perinephric fluid collection, urolithiasis or hydroureteronephrosis. BLADDER: Normal. No calculi or wall thickening. BOWEL AND PERITONEUM: Moderate paraesophageal hernia consists of the distal stomach. The stomach returns through the esophageal hiatus at the pyloric region. No dilated bowel loops. No focal bowel wall thickening, mesenteric fat stranding or free fluid. The appendix is normal. There are diverticula of the sigmoid colon without diverticulitis. No evidence of sigmoid or rectal mass. ABDOMINAL WALL: Unremarkable. VASCULATURE: Abdominal aorta is normal in caliber. The left gonadal vein is chronically mildly dilated. The left parauterine veins are chronically dilated. Findings are consistent with chronic venous valve incompetence/venous reflux. LYMPH NODES: No pathologic sized lymph nodes in the abdomen or pelvis. No inguinal lymphadenopathy. PELVIC VISCERA: Status post hysterectomy. 1.2 cm and 1.7 cm simple cysts of the atrophied left ovary. Note that small cysts of the left ovary were present on ultrasound from 11/17/2013, and the cysts are unchanged compared to 01/04/2023. No follow-up imaging recommended. No pelvic free fluid. MUSCULOSKELETAL: Mild dextroscoliosis of lower thoracic spine and levoscoliosis of the lower lumbar spine. Disc degenerative changes within the visualized spine are worst at T11-T12 and L4-L5. Facet osteoarthritis of lower lumbar spine. Mild degenerative retrolisthesis at L1-L2 and approximately 0.2 cm of degenerative anterolisthesis at L5-S1. CT/CT abdomen pelvis w IV con IMPRESSION: * No evidence of abdominal mass, lymphadenopathy or free fluid. * Moderate sized paraesophageal hernia. Query whether the patient has any symptoms from this chronic hernia. * Mild diverticulosis of the sigmoid colon without diverticulitis.
[2023-01-28] MEDS: iohexoL 350 MG/ML 100 ML INFUS..BTL IV (12:03)
[2023-01-28] MEDS: Barium Sulfate Oral (Vanilla) 450 ML ORAL.SUSP 900 ML PO (12:04)
== END 2023-01-28 09:21 | disposition home or self-care (01) ==
LOC: HO.CT 09:20
PROVIDERS: PCP Internal Medicine; Visit Provider Nurse Practitioner Family
DX: R10.9 Unspecified abdominal pain (principal)
CPT/HCPCS: 74177; Q9967

== ENCOUNTER 2023-03-16 09:36 | Outpatient (AMB) | payer MEDICARE, SELFPAY ==
--- NOTE | 2023-03-16 09:55 | A.OFFVIS_ITS ---
Intake Vital Signs 03/16/23 09:57 Height 5 ft 2 in Weight 175 lb BMI 32.0 BP 141/78 H Blood Pressure Location Lt brachial Position Sitting Pulse 67 Intake Visit Reasons: follow up per [place] Intake Note: Patient follow up for GERD. Patient denies any GI issues. Route Driver Required: No Accompanied by: Self / Same As Patient Allergies No Known Allergies Allergy (Verified 03/16/23 09:55) HPI follow up per [place] HPI Details LAST VISIT: GERD (gastroesophageal reflux disease) Postprandial abdominal bloating Plan Continue omeprazole in the morning. I will add famotidine at bedtime. Patient can take simethicone or abdominal bloating. Discussed with patient avoiding dietary triggers. Low FODMAP diet discussed with patient. Patient had negative Cologuard in February. Denies melena, hematochezia, unintentional weight loss or ribbon like stools. Denies any dyspepsia, dysphagia or odynophagia. Continue avoiding dietary triggers and late night snacking. Staying upright for minimum 3 hours after meals discussed with patient. I will see her in 6 months, sooner on an as-needed basis. Patient is agreeable to this plan and verbalizes understanding of instructions. She was given a the opportunity to ask questions and all questions answered. ? Thank you for allowing me to participate in her care Medications New famotidine (Pepcid) 20 mg PO BEDTIME 30 tabs 3RF K21.9 Refilled simethicone 125 mg PO BID-QID PRN 120 caps 3RF abdom inal distention omeprazole 20 mg PO DAILY 90 caps 1RF * TODAY'S VISIT Patient is here today for follow-up and to discuss CT scan results. Patient reports that she has been feeling better, less epigastric discomfort or dyspepsia. Patient denies any dysphagia or odynophagia. Patient does report that she has bloating today. Since last seen her symptoms have improved. Patient states that she is taking famotidine at bedtime and omeprazole in the morning and her symptoms are suppressed. CT scan showed no diverticulitis in sigmoid colon as compared to the one from December. However paraesophageal hernia noted on CT scan. Patient denies any abdominal pain or epigastric discomfort. Patient denies melena, hematochezia, unintentional weight loss or ribbon like stools. Patient had normal Cologuard about a year ago, however had diverticulitis and swelling of a sigmoid colon that was seen on CT scan in December. IMPRESSION: 1. Circumferential hypodense thickening of the mid sigmoid colon with luminal narrowing, extending for approximately 10 cm with associated perisigmoid infiltration, small fluid and mesenteric lymph nodes. Differential considerations include both acute sigmoid diverticulitis and colonic carcinoma. Colonoscopy is recommended when the patient is stable. COUNT INCLUDES [facility] Medical History (Updated 03/16/23 @ 10:18 by Yoselin De Los Santos, [facility]) Paraesophageal hernia Class 2 severe obesity with body mass index (BMI) of 35 to 39.9 with serious comorbidity Osteoarthritis of left hip GERD (gastroesophageal reflux disease) Essential (primary) hypertension Surgical History Hx laparoscopic cholecystectomy (04/29/22) History of lumpectomy of left breast History of esophagogastroduodenoscopy (EGD) History of hysterectomy History of tubal ligation History of removal of cyst Family History Father No problems noted. Mother No problems noted. Sister Breast cancer, Onset Age: 60 Maternal Grandmother Breast cancer Maternal Aunt Breast cancer Paternal Aunt Breast cancer Son No problems noted. Brother Heart attack Family/Other Breast cancer Social History Housing: Condominium Alcohol intake: current Alcohol intake frequency: a few times a week Patient Tobacco Use Status: Never used Tobacco e-Cigarette/Vaping Use: Never Used Second Hand Smoke Exposure: Yes service: No Current occupational status: employed Current occupation: accounts payable, babysit Cognitive needs: No Hearing needs: No Vision needs: Yes (glasses) Review of Systems Const Denies weight gain and Denies weight loss ENT Reports no additional complaints, Denies dysphagia and Denies odynophagia Card Reports no additional complaints Resp Reports no additional complaints GI Denies abdominal pain, Reports belching, Denies melena, Reports bloating, Denies change in bowel habits, Denies dysphagia, Denies excessive flatus, Denies dyspepsia, Reports heartburn (Occasional), Denies diarrhea, Denies loose stools, Denies nausea, Denies odynophagia and Denies vomiting Reports no additional complaints Musc Reports no additional complaints Neuro Reports no additional complaints Psych Reports no additional complaints Endo Reports no additional complaints Physical Exam Vital Signs: Last Vital Signs Pulse 67 03/16/23 09:57 BP 141/78 H 03/16/23 09:57 BMI result Body Mass Index 32.0 Const General: healthy appearing, no acute distress and well developed Nutritional Appearance: well nourished Orientation/consciousness: patient oriented x3 Resp Effort & Inspection: normal respiratory effort, able to speak in complete sentences, no tracheal deviation and symmetric chest movement Auscultation: clear to auscultation bilaterally Cardio Rate: regular rate GI Inspection: Yes normal to inspection and No distended Palpation (GI): Soft to palpation, not firm, nontender and No hepatosplenomegaly present Auscultation: normal bowel sounds General: Yes no CVA tenderness Back/Spine/Pelvis Back: no CVA tenderness Skin General skin exam: elasticity normal, turgor normal and dry skin Neuro General: patient oriented x3 Psych Appearance: grossly normal Mental Status: mental status grossly normal Results Reviewed Results Reviewed: CT SCAN OF ABDOMEN AND PELVIS 01/28/2023 FINDINGS: LUNG BASES: No pulmonary consolidation or pleural effusion. 0.5 cm subpleural nodule of the right lower lobe is unchanged compared to 01/04/2023. Based on Fleischner Society guidelines, no chest CT imaging follow-up is required/recommended. HEPATOBILIARY: The liver has normal size, shape, and attenuation. Gallbladder is surgically absent. No dilated bile ducts. PANCREAS: No edema, pancreatic ductal dilatation or mass. SPLEEN: Normal. ADRENAL GLANDS: Normal. KIDNEYS AND URETERS: The kidneys enhance symmetrically and have normal size and cortical thickness. No perinephric fluid collection, urolithiasis or hydroureteronephrosis. BLADDER: Normal. No calculi or wall thickening. BOWEL AND PERITONEUM: Moderate paraesophageal hernia consists of the distal stomach. The stomach returns through the esophageal hiatus at the pyloric region. No dilated bowel loops. No focal bowel wall thickening, mesenteric fat stranding or free fluid. The appendix is normal. There are diverticula of the sigmoid colon without diverticulitis. No evidence of sigmoid or rectal mass. ABDOMINAL WALL: Unremarkable. VASCULATURE: Abdominal aorta is normal in caliber. The left gonadal vein is chronically mildly dilated. The left parauterine veins are chronically dilated. Findings are consistent with chronic venous valve incompetence/venous reflux. LYMPH NODES: No pathologic sized lymph nodes in the abdomen or pelvis. No inguinal lymphadenopathy. PELVIC VISCERA: Status post hysterectomy. 1.2 cm and 1.7 cm simple cysts of the atrophied left ovary. Note that small cysts of the left ovary were present on ultrasound from 11/17/2013, and the cysts are unchanged compared to 01/04/2023. No follow-up imaging recommended. No pelvic free fluid. MUSCULOSKELETAL: Mild dextroscoliosis of lower thoracic spine and levoscoliosis of the lower lumbar spine. Disc degenerative changes within the visualized spine are worst at T11-T12 and L4-L5. Facet osteoarthritis of lower lumbar spine. Mild degenerative retrolisthesis at L1-L2 and approximately 0.2 cm of degenerative anterolisthesis at L5-S1. CT/CT abdomen pelvis w IV con IMPRESSION: * No evidence of abdominal mass, lymphadenopathy or free fluid. * Moderate sized paraesophageal hernia. Query whether the patient has any symptoms from this chronic hernia. * Mild diverticulosis of the sigmoid colon without diverticulitis. Assessment & Plan Assessment & Plan (1) GERD (gastroesophageal reflux disease): Code(s): K21.9 - Gastro-esophageal reflux disease without esophagitis Qualifiers: Esophagitis presence: without esophagitis Qualified Code(s): K21.9 - Gastro-esophageal reflux disease without esophagitis (2) Paraesophageal hernia: Code(s): K44.9 - Diaphragmatic hernia without obstruction or gangrene (3) Postprandial abdominal bloating: Code(s): R14.0 - Abdominal distension (gaseous) (4) History of diverticulitis: Code(s): Z87.19 - Personal history of other diseases of the digestive system (5) Blood in stool: Code(s): K92.1 - Melena Plan Patient will be scheduled for upper endoscopy and colonoscopy. Patient had normal Cologuard over a year ago, however she had diverticulitis with moderate narrowing of her sigmoid colon that was seen in December. Normal repeated CT scan in January, however patient should go for diagnostic colonoscopy. Patient had positive Hemoccult during ED visit as well. Epigastric pain and dyspepsia are control at this moment with PPI and H2 ally. Significant sliding hiatal hernia seen, last CT scan show paraesophageal hernia, will send patient for upper endoscopy. Patient will need to be referred afterwards to thoracic surgeon for hernia repair. Patient will continue current treatment with famotidine and omeprazole. Patient will continue take MiraLax daily to help her move her bowels. Continue avoiding dietary triggers. Low FODMAP diet encouraged. What to expect before during and after the procedure discussed with patient. Clear liquid diet and good bowel prep stressed with patient. Patient denies any issues with anesthesia in the past. No history of sleep apnea. Not on any anticoagulation medication. Denies any cardiac or respir atory symptoms. I will see patient after the procedure, sooner on as needed basis. Patient is agreeable to this plan and verbalizes understanding of instructions. She was given the opportunity to ask questions and all questions answered. Thank you for allowing me to participate in her care Medications: New bisacodyl (Dulcolax (bisacodyl)) take 4 tabs at noon the day before your colonoscopy 20 mg (4 x 5 mg) PO ONCE 4 tabs 0RF 1 day Z12.11 - Encounter for screening for malignant neoplasm of colon polyethylene glycol 3350 (Miralax) As directed by gastroenterology department at [facility] 238 grams PO ONCE 238 grams 0RF Z12.11 - Encounter for screening for malignant neoplasm of colon Coding Level of Care Code Est Pt Level 4 (17233) Diagnoses Gastroesophageal reflux disease without esophagitis K21.9 Esophagitis presence: without esophagitis Paraesophageal hernia K44.9 Postprandial abdominal bloating R14.0 History of diverticulitis Z87.19 Blood in stool K92.1 Time Spent (min) 35 Comment 25 minutes spent with patient and additional 10 minutes spent reviewing her records
[2023-03-16 09:57] VITALS: BP 141/78; PULSE 67; BMI 32.0
== END 2023-03-16 10:33 | disposition home or self-care (01) ==
PROVIDERS: PCP Internal Medicine; Visit Provider Nurse Practitioner Family
DX: K21.9 Gastro-esophageal reflux disease without esophagitis (principal); K44.9 Diaphragmatic hernia without obstruction or gangrene; R14.0 Abdominal distension (gaseous); Z87.19 Personal history of other diseases of the digestive system; K92.1 Melena
CPT/HCPCS: 99214

== ENCOUNTER → 2023-03-16 09:36 | Outpatient (BNVA) | payer MEDICARE, SELFPAY | PROVIDERS: PCP Internal Medicine; Visit Provider Nurse Practitioner Family | DX: K21.9 Gastro-esophageal reflux disease without esophagitis (principal); K44.9 Diaphragmatic hernia without obstruction or gangrene; R14.0 Abdominal distension (gaseous); K92.1 Melena; Z87.19 Personal history of other diseases of the digestive system | CPT/HCPCS: 99212 ==

== ENCOUNTER 2023-04-08 12:14 | Day surgery (SDC) | payer MEDICARE, SELFPAY ==
[2023-04-06 14:39] VITALS: BMI 32.0
--- NOTE | 2023-04-07 10:57 | P.CONAN_ITS ---
HPI - Anesthesia Eval Consult details Narrative: 67yo F for Upper Endoscopy and Colonoscopy [facility] Active Problems Active Problems: All Active Problems (Updated 03/16/23 @ 10:18 [facility] Annual physical exam (Acute) Chronic cholecystitis (Acute) Obesity (BMI 30.0-34.9) (Acute) Cholelithiasis (Acute) Paraesophageal hernia (Acute) Class 2 severe obesity with body mass index (BMI) of 35 to 39.9 with serious comorbidity (Acute) Osteoarthritis of left hip (Acute) GERD (gastroesophageal reflux disease) (Acute) Essential (primary) hypertension (Acute) Past Medical History Medical History (Updated 03/16/23 @ 10:18 by DIPIKA Mccollum-C[facility]) Paraesophageal hernia Class 2 severe obesity with body mass index (BMI) of 35 to 39.9 with serious comorbidity Osteoarthritis of left hip GERD (gastroesophageal reflux disease) Essential (primary) hypertension Family History Family History Father No problems noted. Mother No problems noted. Sister Breast cancer, Onset Age: 60 Maternal Grandmother Breast cancer Maternal Aunt Breast cancer Paternal Aunt Breast cancer Son No problems noted. Brother Heart attack Family/Other Breast cancer Family history of problems with anesthesia: No Surgical History Surgical History (Updated 04/06/23 @ 14:36 by Nelly Ridley RN) Hx laparoscopic cholecystectomy (04/29/22) History of lumpectomy of left breast History of esophagogastroduodenoscopy (EGD) History of hysterectomy History of tubal ligation History of removal of cyst History of Problems with Anesthesia: No Social History Social History Housing: Condominium Alcohol intake: current Alcohol intake frequency: a few times a week Patient Tobacco Use Status: Never used Tobacco e-Cigarette/Vaping Use: Never Used Second Hand Smoke Exposure: Yes service: No Current occupational status: employed Current occupation: accounts payable, babysit Cognitive needs: No Hearing needs: No Vision needs: Yes (glasses) Meds Allergies Allergy/AdvReac Type Severity Reaction Status Date / Time No Known Allergies Allergy Verified 03/16/23 09:55 Home Medications Medication Instructions Recorded Confirmed Last Taken Type calcium citrate 315 mg-vitamin D3 1 tab PO DAILY 01/29/20 04/06/23 Unknown History 5 mcg (200 unit) tablet Exam Height,Weight and Vital Signs: Height 5 ft 2 in Weight 79.379 kg Pertinent Lab Results Pertinent Lab Results: Laboratory Tests 01/04/23 07:03 WBC 10.9 H Hgb 12.8 Hct 38.5 Plt Count 277 Sodium 139 Potassium 3.3 Chloride 103 Carbon Dioxide 26 BUN 7 L Creatinine 0.66 Narrative Narrative: EKG 08/2022 Vent. Rate : 062 BPM Atrial Rate : 062 BPM P-R Int : 150 ms QRS Dur : 090 ms QT Int : 420 ms P-R-T Axes : 045 033 044 degrees QTc Int : 426 ms Sinus rhythm with occasional Premature ventricular complexes Otherwise normal ECG No previous ECGs available Assessment and Plan Assessment Anesthesia Assessment: Chart Reviewed Final Anesthetic Review Family History of Problems with Anesthesia: No History of Problems with Anesthesia: No
[2023-04-08 13:03] VITALS: BMI 31.6
[2023-04-08 13:14] VITALS: BP 140/96; PULSE 78; RESP 16; TEMP 37.1; O2SAT 99
--- NOTE | 2023-04-08 13:28 | P.CONAN_ITS ---
FORM[facility]LY [facility] Active Problems Active Problems: All Active Problems (Updated 03/16/23 @ 10:18 by Yoselin De Los Santos [facility]) Annual physical exam (Acute) Chronic cholecystitis (Acute) Obesity (BMI 30.0-34.9) (Acute) Cholelithiasis (Acute) Paraesophageal hernia (Acute) Class 2 severe obesity with body mass index (BMI) of 35 to 39.9 with serious comorbidity (Acute) Osteoarthritis of left hip (Acute) GERD (gastroesophageal reflux disease) (Acute) Essential (primary) hypertension (Acute) Past Medical History Medical History Paraesophageal hernia Class 2 severe obesity with body mass index (BMI) of 35 to 39.9 with serious comorbidity Osteoarthritis of left hip GERD (gastroesophageal reflux disease) Essential (primary) hypertension Family History Family History Father No problems noted. Mother No problems noted. Sister Breast cancer, Onset Age: 60 Maternal Grandmother Breast cancer Maternal Aunt Breast cancer Paternal Aunt Breast cancer Son No problems noted. Brother Heart attack Family/Other Breast cancer Family history of problems with anesthesia: No Surgical History Surgical History Hx laparoscopic cholecystectomy (04/29/22) History of lumpectomy of left breast History of esophagogastroduodenoscopy (EGD) History of hysterectomy History of tubal ligation History of removal of cyst History of Problems with Anesthesia: No Social History Social History Housing: Condominium Alcohol intake: current Alcohol intake frequency: a few times a week Patient Tobacco Use Status: Never used Tobacco e-Cigarette/Vaping Use: Never Used Second Hand Smoke Exposure: Yes Use of substances other than those prescribed or required for medical reasons: No Are you DNR?: No Advance Directives: No Advance Directives Information Provided: Yes service: No Current occupational status: employed Current occupation: accounts payable, babysit Cognitive needs: No Hearing needs: No Vision needs: Yes (glasses) Meds Allergies Allergy/AdvReac Type Severity Reaction Status Date / Time No Known Allergies Allergy Verified 04/08/23 13:00 Active Medications: Current Medications Lactated Ringer's (Lr) 1,000 mls @ 100 mls/hr IVCONT .Q10H RACHEL Ondansetron HCl (Ondansetron Hcl 4 Mg/2 Ml Vial) 4 mg IVPUSH ONCE PRN PRN Reason: Nausea and Vomiting Home Medications Medication Instructions Recorded Confirmed Last Taken Type calcium citrate 315 mg-vitamin D3 1 tab PO DAILY 01/29/20 04/06/23 Unknown History 5 mcg (200 unit) tablet Exam Height,Weight and Vital Signs: Height 5 ft 2 in Weight 78.471 kg Last Vital Signs Temp 98.8 F 04/08/23 13:14 Pulse 78 04/08/23 13:14 Resp 16 04/08/23 13:14 BP 140/96 H 04/08/23 13:14 Pulse Ox 99 04/08/23 13:14 O2 Del Method Room Air 04/08/23 13:14 Airway Mallampati Class: II TM Dist: >3cm Neck ROM: Full Loose/Missing/Broken Teeth: No Heart: rrr Lungs: clear Assessment and Plan Final Anesthetic Review Family History of Problems with Anesthesia: No History of Problems with Anesthesia: No NPO: Yes ASA Class: II Final Preanesthetic Review: No Changes in Pt Med Stat, Meds/Allgs Chart Reviewed, Consent Obtained/Reviewed and Anes Risks/Benef Reviewed Patient Risk: Intermediate Procedure Risk: Low Anesthetic Plan Anesthetic Plan: MAC: Disposition: Standard PACU
[2023-04-08] MEDS: Lactated Ringers 1,000 ML 100 ML IVCONT (13:29)
--- NOTE | 2023-04-08 14:26 | MHC.SHP ---
Pre-Procedural Eval Section A - 24 Hr Update-Section A only Date of Service: 04/08/23 Section B - Complete if H&P > 30 days Chief Complaint: Hiatal hernia, diverticulitis Details of Present Illness: PMH: Paraesophageal hernia Class 2 severe obesity with body mass index (BMI) of 35 to 39.9 with serious comorbidity Osteoarthritis of left hip GERD (gastroesophageal reflux disease) Essential (primary) hypertension Surgical History Hx laparoscopic cholecystectomy (04/29/22) History of lumpectomy of left breast History of esophagogastroduodenoscopy (EGD) History of hysterectomy History of tubal ligation History of removal of cyst Present Medications: see Short Stay Collaborative assessment Allergies: Allergies Allergy/AdvReac Type Severity Reaction Status Date / Time No Known Allergies Allergy Verified 04/08/23 13:00 Review of Systems Review of Systems Comment: Ten point ROS negative Exam Exam Comment: Gen appear: No acute distress HEENT: no icterus Chest: No overt resp distress Abd: soft, nontender, nondistended Psych: Stable affect, answering questions appropriately Neuro: A/Ox3 noted to move all extremities spontaneously Ext: no peripheral edema Plan Diagnosis/Plan: Unchanged I have reviewed the history and physical and performed a pertinent physical examination on my patient. No changes have occurred unless specified. this is her index colo Time Spent With Patient Time: Total time managing care of this patient today ____ minutes.
--- NOTE | 2023-04-08 14:29 | P.OP_ITS ---
Operative Note Operative Note Date of Service: 04/08/23 Narrative: Procedure: Upper endoscopy and colonoscopy Indication: Hiatal hernia, diverticulitis Endoscopist: Miya Winkler MD Anesthesia Provider: Dr Didier Pappas Anesthesia type: MAC Instrument: Olympus [id number] ?? EGD Procedure:?? The procedure, indications, preparation and potential complications were reviewed with the patient, who indicated understanding and gave written informed consent to proceed. A physical exam was performed. The endoscope was introduced through the mouth, and advanced to the antrum. The mucosa was carefully examined on slow withdrawal of the endoscope. The patient tolerated the procedure well. There were no immediate complications.? ? EGD Findings:? * Esophagus:? Normal mucosa noted in the entire esophagus. The Z line was at 37 cm. There was a large paraesophageal hernia. * Stomach:? There was a large paraesophageal hernia precluding intubation of the pylorus due to significant looping of the scope despite upper abdominal pressure. Scattered polyps in the fundus of the stomach. Colonoscopy Procedure: The patient was then turned for the colonoscopy. A digital rectal exam was performed which was normal. A distal attachment cap was affixed to the tip of the scope and the colonoscope was then inserted through the anus and advanced through the colon to the cecum at 75 cm and terminal ileum Appendiceal orifice and ileocecal valve were identified. Mucosa was carefully examined under high definition white light as the instrument was slowly withdrawn in a retrograde panoramic fashion. Retroflexion was performed in rectum. The procedure was not difficult. There were no immediate obvious complications. The quality of the prep was BBPS: 2+2+3 = adequate Withdrawal time 10 minutes. Limitations: No limitations. Colonoscopy Findings: Mucosa: Normal to cecum and terminal ileum. Protruding lesions: * Medium internal hemorrhoids without stigmata of recent bleeding. Excavated lesions: * Moderate diverticulosis of left side of the colon. Impressions:? * Normal esophageal mucosa * Large paraesophageal hernia * Gastric polyps * Duodenum not reached * Normal colon and terminal ileum mucosa * Diverticulosis * Hemorrhoids Recommendations: - Recommend barium esophagogram for complete assessment of paraesophageal hernia - Consider referral for surgical repair - Repeat colo for asymptomatic colorectal cancer screening recommended in 10 years
[2023-04-08 15:18] VITALS: BP 174/84; PULSE 70; RESP 16; TEMP 36.8; O2SAT 100
[2023-04-08 15:33] VITALS: BP 166/82; PULSE 58; RESP 16; TEMP 36.1; O2SAT 100
== END 2023-04-08 16:02 | disposition home or self-care (01) ==
PROVIDERS: PCP Internal Medicine; Visit Provider Internal Medicine
PROC: (CPT 45378; principal; 2023-04-08 14:40)
DX: K57.30 Diverticulosis of large intestine without perforation or abscess without bleeding (principal); R14.0 Abdominal distension (gaseous); K64.8 Other hemorrhoids; K44.9 Diaphragmatic hernia without obstruction or gangrene; K21.9 Gastro-esophageal reflux disease without esophagitis; K31.7 Polyp of stomach and duodenum; E66.01 Morbid (severe) obesity due to excess calories; Z68.35 Body mass index [BMI] 35.0-35.9, adult; I10 Essential (primary) hypertension; Z79.899 Other long term (current) drug therapy; Z90.49 Acquired absence of other specified parts of digestive tract; Z98.890 Other specified postprocedural states
CPT/HCPCS: 45378; 43235; J2704

== ENCOUNTER → 2023-04-08 12:14 | Outpatient (BNV) | payer MEDICARE, SELFPAY | PROVIDERS: PCP Internal Medicine; Visit Provider Internal Medicine | DX: K44.9 Diaphragmatic hernia without obstruction or gangrene (principal); K31.7 Polyp of stomach and duodenum; K57.90 Diverticulosis of intestine, part unspecified, without perforation or abscess without bleeding; K64.8 Other hemorrhoids | CPT/HCPCS: 43235; 45378 ==

== ENCOUNTER 2023-04-21 12:34 | Outpatient (AMB) | payer MEDICARE, SELFPAY ==
--- NOTE | 2023-04-21 12:36 | A.OFFVIS_ITS ---
Intake Vital Signs 04/21/23 12:41 Height 5 ft 2 in Weight 175 lb 0.752 oz BMI 32.0 BP 130/69 Blood Pressure Location Lt brachial Position Sitting Pulse 79 Intake Visit Reasons: s/p egd/colon Intake Note: Patient is seen in office for post op assessment post EGD and colonoscopy. 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 Patient had normal Cologuard over a year ago, however she had diverticulitis with moderate narrowing of her sigmoid colon that was seen in December. Normal repeated CT scan in January, however patient should go for diagnostic colonoscopy. Patient had positive Hemoccult during ED visit as well. Epigastric pain and dyspepsia are control at this moment with PPI and H2 ally. Significant sliding hiatal hernia seen, last CT scan show paraesophageal hernia, will send patient for upper endoscopy. Patient will need to be referred afterwards to thoracic surgeon for hernia repair. Patient will continue current treatment with famotidine and omeprazole. Patient will continue take MiraLax daily to help her move her bowels. Continue avoiding dietary triggers. Low FODMAP diet encouraged. What to expect before during and after the procedure discussed with patient. Clear liquid diet and good bowel prep stressed with patient. Patient denies any issues with anesthesia in the past. No history of sleep apnea. Not on any anticoagulation medication. Denies any cardiac or respiratory symptoms. I will see patient after the procedure, sooner on as needed basis. Patient is agreeable to this plan and verbalizes understanding of instructions. She was given the opportunity to ask questions and all questions answered. ? Thank you for allowing me to participate in her care Medications New bisacodyl (Dulcolax (bisacodyl)) take 4 tabs at noon the day before your colonoscopy 20 mg (4 x 5 mg) PO ONCE 4 tabs 0RF 1 da y Z12.11 polyethylene glycol 3350 (Miralax) As directed by gastroenterology department at [facility] 238 grams PO ONCE 238 grams 0RF Z12.11 UPPER ENDO AND COLONOSCOPY EGD Findings:? * Esophagus:? Normal mucosa noted in the entire esophagus. The Z line was at 37 cm. There was a large paraesophageal hernia. * Stomach:? There was a large paraesophageal hernia precluding intubation of the pylorus due to significant looping of the scope despite upper abdominal pressure. Scattered polyps in the fundus of the stomach. Colonoscopy Findings: Mucosa: Normal to cecum and terminal ileum. Protruding lesions: * Medium internal hemorrhoids without stigmata of recent bleeding. Excavated lesions: * Moderate diverticulosis of left side of the colon. Impressions:? * Normal esophageal mucosa * Large paraesophageal hernia * Gastric polyps * Duodenum not reached * Normal colon and terminal ileum mucosa * Diverticulosis * Hemorrhoids Recommendations: - Recommend barium esophagogram for comp lete assessment of paraesophageal hernia - Consider referral for surgical repair - Repeat colo for asymptomatic colorecta l cancer screening recommended in 10 years TODAY'S VISIT Patient is here today for follow-up and to discuss upper endoscopy and colonoscopy. Patient had normal colonoscopy, asymptomatic colorectal screening in 10 years, sooner if clinically necessary. Upper endoscopy showed signific antly large paraesophageal hernia. Patient reports that she has been doing better. Occasional dyspepsia with dysphagia without odynophagia. Patient currently is taking omeprazole every morning and famotidine at bedtime. Patient reports that she is trying to eat smaller meals. Denies any nausea or vomiting. Denies any abdominal pain or discomfort. Reports that she has been moving her bowels better without any issues. Denies melena, hematochezia, unintentional weight loss or ribbon like stools. [facility] Medical History Paraesophageal hernia Class 2 severe obesity with body mass index (BMI) of 35 to 39.9 with serious comorbidity Osteoarthritis of left hip GERD (gastroesophageal reflux disease) Essential (primary) hypertension Surgical History Hx laparoscopic cholecystectomy (04/29/22) History of lumpectomy of left breast History of esophagogastroduodenoscopy (EGD) History of hysterectomy History of tubal ligation History of removal of cyst Family History Father No problems noted. Mother No problems noted. Sister Breast cancer, Onset Age: 60 Maternal Grandmother Breast cancer Maternal Aunt Breast cancer Paternal Aunt Breast cancer Son No problems noted. Brother Heart attack Family/Other Breast cancer Social History Housing: Condominium Alcohol intake: current Alcohol intake frequency: a few times a week Patient Tobacco Use Status: Never used Tobacco e-Cigarette/Vaping Use: Never Used Second Hand Smoke Exposure: Yes service: No Current occupational status: employed Current occupation: accounts payable, babysit Cognitive needs: No Hearing needs: No Vision needs: Yes (glasses) Review of Systems Const Denies weight gain and Denies weight loss ENT Reports no additional complaints, Reports dysphagia (Occasional) and Denies odynophagia Card Reports no additional complaints Resp Reports no additional complaints GI Denies abdominal pain, Denies belching, Denies melena, Denies bloating, Denies change in bowel habits, Reports dysphagia (Occasional), Denies excessive flatus, Reports dyspepsia (Occasional), Denies heartburn, Denies diarrhea, Denies loose stools, Denies nausea, Denies odynophagia and Denies vomiting Reports no additional complaints Musc Reports no additional complaints Neuro Reports no additional complaints Psych Reports no additional complaints Endo Reports no additional complaints Physical Exam Vital Signs: Last Vital Signs Pulse 79 04/21/23 12:41 BP 130/69 04/21/23 12:41 BMI result Body Mass Index 32.0 Const General: healthy appearing, no acute distress and well developed Nutritional Appearance: obese Orientation/consciousness: patient oriented x3 Resp Effort & Inspection: normal respiratory effort, able to speak in complete sentences, no tracheal deviation and symmetric chest movement Auscultation: clear to auscultation bilaterally Cardio Rate: regular rate GI Inspection: Yes normal to inspection, No distended and Yes obesity Palpation (GI): Soft to palpation, not firm, nontender and No hepatosplenomegaly present Auscultation: normal bowel sounds General: Yes no CVA tenderness Back/Spine/Pelvis Back: no CVA tenderness Skin General skin exam: elasticity normal, turgor normal and dry skin Neuro General: patient oriented x3 Psych Appearance: grossly normal Mental Status: mental status grossly normal Assessment & Plan Assessment & Plan (1) Paraesophageal hernia: Code(s): K44.9 - Diaphragmatic hernia without obstruction or gangrene (2) GERD (gastroesophageal reflux disease): Code(s): K21.9 - Gastro-esophageal reflux disease without esophagitis Qualifiers: Esophagitis presence: without esophagitis Qualified Code(s): K21.9 - Gastro-esophageal reflux disease without esophagitis (3) History of diverticulitis: Code(s): Z87.19 - Personal history of other diseases of the digestive system (4) Postprandial abdominal bloating: Code(s): R14.0 - Abdominal distension (gaseous) Plan Large paraesophageal hernia. Referral to bariatric services for possible repair. Patient will be sent also for upper GI with barium swallow to further evaluate. Continue famotidine and omeprazole. Patient was encouraged to avoid dietary triggers and late night snacking. Staying upright for minimal 3 hours after meals discussed with patient. Eat smaller bites, chew food well, drink fluids it with each bite. I will see patient in 6 months, sooner on as needed basis. Patient is agreeable to this plan and verbalizes understanding of instructions. She was given the opportunity to ask questions and all questions answered. Thank you for allowing me to participate in her care Orders: Orders [place] upper GI w Ba Swallow Today K44.9 - Diaphragmatic hernia without obstruction or gangrene Referrals Bariatric Surgery Referral K44.9 - Diaphragmatic hernia without obstruction or gangrene Coding Level of Care Code Est Pt Level 4 (59758) Diagnoses Paraesophageal hernia K44.9 Gastroesophageal reflux disease without esophagitis K21.9 Esophagitis presence: without esophagitis History of diverticulitis Z87.19 Postprandial abdominal bloating R14.0 Time Spent (min) 35 Comment 20 minutes spent with patient and additional 15 minutes spent reviewing her records
[2023-04-21 12:41] VITALS: BP 130/69; PULSE 79; BMI 32.0
== END 2023-04-21 13:17 | disposition home or self-care (01) ==
PROVIDERS: PCP Internal Medicine; Visit Provider Nurse Practitioner Family
DX: K44.9 Diaphragmatic hernia without obstruction or gangrene (principal); K21.9 Gastro-esophageal reflux disease without esophagitis; Z87.19 Personal history of other diseases of the digestive system; R14.0 Abdominal distension (gaseous)
CPT/HCPCS: 99214

== ENCOUNTER → 2023-04-21 12:34 | Outpatient (BNVA) | payer MEDICARE, SELFPAY | PROVIDERS: PCP Internal Medicine; Visit Provider Nurse Practitioner Family | DX: K44.9 Diaphragmatic hernia without obstruction or gangrene (principal); K21.9 Gastro-esophageal reflux disease without esophagitis; R14.0 Abdominal distension (gaseous); Z87.19 Personal history of other diseases of the digestive system | CPT/HCPCS: 99212 ==

== ENCOUNTER 2023-04-23 08:46 | Outpatient (REF) | payer MEDICARE, SELFPAY ==
--- NOTE | ~2023-04-23 | FL_ITS ---
EXAMINATION: XR FLUOROSCOPY UPPER GI WITH AIR CLINICAL INFORMATION: Diaphragmatic hernia on recent EGD COMPARISON: None TECHNIQUE: Fluoroscopic air contrast upper GI examination was performed utilizing standard techniques with thin and thick barium and effervescent granules. Numerous spot images were obtained. FINDINGS: Dual and single contrast images of the esophagus demonstrate mildly patulous caliber, but normal contour, and mucosal pattern. No evidence of stricture, mass, or ulcerations identified. There was significant esophageal dysmotility with nonpropulsive tertiary contractions. 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 There is significant gastroesophageal reflux up to the thoracic inlet. There is a mild to moderate narrowing Schatzki's ring at GE junction. Dual contrast and single contrast images of the stomach demonstrated multiple small filling defects in the mucosa that likely represent gastric polyps as seen on recent EGD. The distal stomach and proximal duodenum are present in the paraesophageal hernia. Single and air-contrast images of the duodenal bulb demonstrate no abnormality. The duodenal sweep and the proximal jejunum are not evaluated due to the delay in emptying of the stomach due to the position of the stomach and the significant reflux from large paraesophageal hernia. Cholecystectomy clips are noted. Mild dextroconvex thoracolumbar scoliosis noted. FLUOROSCOPY TIME: 3 minutes 56 seconds Number of Spot Images: 20 Number of Cine: 7 DOSE AREA PRODUCT: 2602 uGy-m2 (microgray-meter squared) FL/FL upper GI w Ba Swallow IMPRESSION: 1. Large type IV paraesophageal hernia containing the distal stomach and proximal duodenum. 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 2. Significant gastroesophageal reflux. Significant esophageal dysmotility. 3. Multiple filling defects in the gastric mucosa likely represent small hyperplastic gastric polyps, as seen on recent EGD. 4. The duodenal sweep and proximal jejunum could not be evaluated due to the delay in gastric emptying from the large paraesophageal hernia and reflux. 5. Mild to moderate narrowing Schatzki's ring at the GE junction. This procedure was performed by Keven Gray PA-C, and supervised by Dr. Pettit
== END 2023-04-23 08:47 | disposition home or self-care (01) ==
LOC: HO.XRAY 08:46
PROVIDERS: PCP Internal Medicine; Visit Provider Nurse Practitioner Family
DX: K44.9 Diaphragmatic hernia without obstruction or gangrene (principal)
CPT/HCPCS: 74240

== ENCOUNTER → 2023-04-23 10:08 | Outpatient (BNV) | payer MEDICARE, SELFPAY | PROVIDERS: PCP Internal Medicine; Visit Provider Physician Assistant Surgical | DX: K44.9 Diaphragmatic hernia without obstruction or gangrene (principal) | CPT/HCPCS: 74246 ==

== ENCOUNTER 2023-04-30 12:13 | Outpatient (AMB) | payer MEDICARE, SELFPAY ==
--- NOTE | 2023-04-30 12:53 | A.OFFVIS_ITS ---
Intake VS Expanded 04/30/23 13:01 Height 5 ft 2 in Weight 172 lb 3.2 oz BMI 31.5 Body Fat % 41.4 Body Fat Mass 72.0 Fat Free Mass 102.0 Visceral Fat Rating 12.0 Body Water % 41.3 Body Water Mass 71.8 Muscle Mass/Score 96.8 Basal Metabolic Rate/Score 1,408 Intake Visit Reasons: OV Hernia Repair - [facility] Ref. Allergies No Known Allergies Allergy (Verified 04/30/23 14:13) Medication List - Last Reconciled 04/30/23 by Carl Givens MD calcium citrate-vitamin D3 315 mg-5 mcg (200 unit) 1 tab PO DAILY famotidine 20 mg PO BEDTIME hydrochlorothiazide 25 mg PO DAILY lisinopril 40 mg (2 x 20 mg) PO DAILY omeprazole 20 mg PO DAILY simethicone 125 mg PO BID-QID PRN HPI HPI Comments History of Present Illness Details Referred for a paraesophageal hernia. Patient has some GERD symptoms and has reported some occasional vomiting in the past but the symptoms have improved since the cholecystectomy. I have reviewed extensive previous xray and endoscopy record. The patient has a large paraesophageal hernia with a volvulus as the distal part of the stomach and duodenum are primarily herniating into the mediastinum. There is no obstruction. [facility] Medical History Paraesophageal hernia Class 2 severe obesity with body mass index (BMI) of 35 to 39.9 with serious comorbidity Osteoarthritis of left hip GERD (gastroesophageal reflux disease) Essential (primary) hypertension Surgical History Hx laparoscopic cholecystectomy (04/29/22) History of lumpectomy of left breast History of esophagogastroduodenoscopy (EGD) History of hysterectomy History of tubal ligation History of removal of cyst Family History Father No problems noted. Mother No problems noted. Sister Breast cancer, Onset Age: 60 Maternal Grandmother Breast cancer Maternal Aunt Breast cancer Paternal Aunt Breast cancer Son No problems noted. Brother Heart attack Family/Other Breast cancer Social History Housing: Condominium Alcohol intake: current Alcohol intake frequency: a few times a week Patient Tobacco Use Status: Never used Tobacco e-Cigarette/Vaping Use: Never Used Second Hand Smoke Exposure: Yes service: No Current occupational status: employed Current occupation: accounts payable, babysit Cognitive needs: No Hearing needs: No Vision needs: Yes (glasses) Physical Exam GI Inspection: Yes normal to inspection (Gynecoid body habitus), Yes incision (well healed) and Yes obesity Palpation (GI): Soft to palpation Extrem Right lower extremity: normal to inspection Left lower extremity: normal to inspection Assessment & Plan Assessment & Plan (1) Paraesophageal hernia: Code(s): K44.9 - Diaphragmatic hernia without obstruction or gangrene Plan: We had an extensive discussion with the patient and her . I jonathan pictures to explain to her the anatomy of what she has. We also discussed the potential complications she may experience if she decides not to have this repaired which are primarily a risk of acute obstruction with or without strangulation that may require emergency surgery (with much higher perioperative risks), or progressive worsening of her present symptoms of GERD and dysphagia. It is also possible that she does not experience any of the above. We also discussed the importance in her decision making to consider her present quality of life which what she is experiencing and whether that is an acceptable situation living like this for the rest of her life. There is also a mental element of knowing the possible risk of stangulation and choosing to observe this issue and she understood that. Finally we discussed the technical components of the surgery and the potential complications, such as inability to complete the repair, gastric ischemia requiring gastrectomy, bleeding, leak, pulmonary complications or VTE. The patient will consider all the above and she will let me know whether she would like to proceed with the surgery or not. Coding Level of Care Code Tele New Pt Level 5 (11811) Diagnoses Paraesophageal hernia K44.9 Time Spent (min) 80
[2023-04-30 13:01] VITALS: BMI 31.5
== END 2023-04-30 14:24 | disposition home or self-care (01) ==
PROVIDERS: PCP Internal Medicine; Visit Provider Surgery
DX: K44.9 Diaphragmatic hernia without obstruction or gangrene (principal)
CPT/HCPCS: 99358; 99443

== ENCOUNTER → 2023-04-30 12:13 | Outpatient (BNVA) | payer MEDICARE, SELFPAY | PROVIDERS: PCP Internal Medicine; Visit Provider Surgery ==

== ENCOUNTER 2023-06-07 08:33 | Outpatient (AMB) | payer MEDICARE, SELFPAY ==
[2023-06-07 14:18] VITALS: BMI 31.5
--- NOTE | 2023-06-07 14:18 | A.OFFVIS_ITS ---
VS Expanded 06/07/23 14:18 Height 5 ft 2 in Weight 172 lb 3 oz BMI 31.5 Intake Visit Reasons: TV Paraoesophageal Hernia Repair 06/17/23 Allergies No Known Allergies Allergy (Verified 06/07/23 14:19) Medication List - Last Reconciled 06/07/23 by Carl Givens MD calcium citrate-vitamin D3 315 mg-5 mcg (200 unit) 1 tab PO DAILY famotidine 20 mg PO BEDTIME hydrochlorothiazide 25 mg PO DAILY lisinopril 40 mg (2 x 20 mg) PO DAILY omeprazole 20 mg PO DAILY ondansetron 4 mg PO Q12H pantoprazole 40 mg PO DAILY polyethylene glycol 3350 (Miralax) 17 grams PO DAILY simethicone 125 mg PO BID-QID PRN sucralfate 10 mL PO BID HPI HPI TV Paraoesophageal Hernia Repair 06/17/23: Details: Start time: 3pm, End time: 3.30pm ?I spent 20 minutes speaking with the patient on the phone plus an additional 10 minutes reviewing and updating records for a total of 30 minutes [facility] Medical History Paraesophageal hernia Class 2 severe obesity with body mass index (BMI) of 35 to 39.9 with serious comorbidity Osteoarthritis of left hip GERD (gastroesophageal reflux disease) Essential (primary) hypertension Surgical History Hx laparoscopic cholecystectomy (04/29/22) History of lumpectomy of left breast History of esophagogastroduodenoscopy (EGD) History of hysterectomy History of tubal ligation History of removal of cyst Family History Father No problems noted. Mother No problems noted. Sister Breast cancer, Onset Age: 60 Maternal Grandmother Breast cancer Maternal Aunt Breast cancer Paternal Aunt Breast cancer Son No problems noted. Brother Heart attack Family/Other Breast cancer [facility] Alcohol intake: current Alcohol intake frequency: a few times a week Patient Tobacco Use Status: Never used Tobacco e-Cigarette/Vaping Use: Never Used Second Hand Smoke Exposure: Yes service: No Current occupational status: employed Current occupation: accounts payable, babysit Cognitive needs: No Hearing needs: No Vision needs: Yes (glasses) Physical Exam Vital Signs: BMI result Body Mass Index 31.5 Telehealth Telehealth Telehealth Platform: Telephone Location of provider rendering services: practice address Location of patient: address on file Patient Identification confirmed using: Name, : Yes Telehealth method: voice only Patient verbally consented to treatment: Yes Patient verbally consented to billing insurance company: Yes Patient informed of any privacy concerns related to visit: Yes Minutes spent on Phone/Video with Pt.: 30 Assessment & Plan Assessment & Plan (1) Paraesophageal hernia: Code(s): K44.9 - Diaphragmatic hernia without obstruction or gangrene Category: Medical Plan: 1. We discussed the potential etiology of the hernia that could be of traumatic etiology worsened by his weight. We discussed the details of the diaphragmatic hernia repair and the potential technical challenges such as being able to achieve enough mobilization of the esophagus back in the abdomen and being able to close the diaphragmatic muscle (crura) primarily with sutures. We also discussed the possibility of using a biologic mesh to close the hernia defect if the crura cannot be adequately re-approximated primarily with sutures. We also discussed the option of doing a gastropexy or a fundoplication to prevent postoperative reflux and prevent hernia recurrence. As we discussed, I favor the gastropexy as the fundoplication can cause several distrurbing symptoms such as gas-bloating, flatulence, inability to burp which can be bothersome to patients especially for him with a history of IBS. Also we discussed the complexity of a potential hernia recurrence in association with a hernia recurrence. He was in agreement not to have a fundoplication. 2. Preop prescriptions were provided and explained the purpose of each one. Need to be purchased preop. Start Pantoprazole now as you get it from the pharmacy, 1 pill per day. Sucralfate and Zofran are for after surgery as needed. 3. Bowel prep: please do 7 packets ?of Miralax mixing each one with a an 8oz glass of water, crystal light, gatorade zero, or propel ?on 06/15/23 and the same amount on 06/16/23. The Miralax you begin with one packet at a time in 8oz water or crystal light, gatorade zero, or propel ?as early in the day as you can and you do them back to back until you finish them. Continue the protein shakes during? the bowel prep. 4. Needs to purchase 1oz medicine cups . 5. Needs to purchase Children's liquid Tylenol for postop pain control. 6. She needs to stop the Hydrochlorothiazide on 06/15/23 (last day to take it). Avoid aspirin, motrin, Advil, Aleve, Ibuprofen, Naproxyn. Tylenol is OK. 7. She needs to purchase the Celebrate REBUILD protein shakes from the hospital's gift shop. 8. Will do basic preop blood work-up any day between Wednesday06/08/23 and Wednesday06/11/23 fasting for 12 hours and is scheduled to see the Anesthesiologist prior to the day of surgery. 9. Importance of adherence to postop folllow-up and recommendations was underscored and she understands that. 10. Stop food and bars as of Wednesday06/09/23 and continue with 4 Celebrate Rebuild protein shakes (ONE scoop EACH in 8oz almond milk) at 8am-10am, 11am- 1pm, 2pm-4pm, 5pm-7pm and one more Celebrate Rebuild protein shake with TWO scoops in 8oz of almond milk at 8pm-10pm 11. No soups, broths or V8 12. The patient's?medical?history has been reviewed and they are considered low risk for post op DVT and therefore DVT prophylaxis is not considered necessary. Travel after surgery was reviewed. The patient has not disclosed any travel plans during the first 30 days after surgery and they have been advised that within the first 30 days after surgery any bus, plane, train or car travel over 2 hours in duration is contraindicated due to the possibility of developing blood clots from immobility. Any travel, needs to include periods of ambulation of 10 minutes in duration every 2 hours.? Patient was instructed to discuss any plans for travel during this period with their bariatric surgeon.? 13. Please take at the day of surgery the following medications: Only the Lisinopril 14. Stop any control pills and don't use them for one month after surgery 15. Absolutely no smoking or vaping, or marijuana until the surgery and for at least the first 4 weeks. Only nicotine patches are allowed. 16. Avoid any steroids by mouth for any reason. Let me know if someone prescribes them to you 17. These instructions supersede anything else you read in the handbook, anything you watched in videos or classes or you were told by any other provider. If there is any conflict, you follow the above instructions and nothi ng else. Orders: Orders Complete Blood Count Auto Diff Today Z01.818 - Encounter for other preprocedural examination Prothrombin Time INR Today Z01.818 - Encounter for other preprocedural examination Type and Screen Today Z01.818 - Encounter for other preprocedural examination Comprehensive Met. Panel Today Z01.818 - Encounter for other preprocedural examination Partial Thromboplastin Time Today Z01.818 - Encounter for other preprocedural examination Medications: New pantoprazole 40 mg PO DAILY 90 tabs 0RF K21.9 - Gastro-esophageal reflux disease without esophagitis ondansetron Only take one every 12 hours as needed if you have nausea 4 mg PO Q12H 20 tabs 0RF nausea and vomiting R11.0 - Nausea polyethylene glycol 3350 (Miralax) Mix each packet with 8oz of water, Crystal light, or Gatorade zero, or Propel and do 7 packets on 06/15/23 and another 7 packets on 06/16/23 17 grams PO DAILY 14 ea 0RF Z01.818 - Encounter for other preprocedural examination sucralfate 10 mL PO BID 600 mL 2RF K21.9 - Gastro-esophageal reflux disease without esophagitis
== END 2023-06-07 17:05 | disposition home or self-care (01) ==
LOC: HO.HBS 08:33
PROVIDERS: PCP Internal Medicine; Visit Provider Surgery
DX: K44.9 Diaphragmatic hernia without obstruction or gangrene (principal)
CPT/HCPCS: 99442

== ENCOUNTER → 2023-06-07 08:33 | Outpatient (BNVA) | payer MEDICARE, SELFPAY | PROVIDERS: PCP Internal Medicine; Visit Provider Surgery ==

== ENCOUNTER 2023-06-09 08:50 | Outpatient (AMB) | payer MEDICARE, SELFPAY ==
--- NOTE | 2023-06-09 09:00 | A.OFFVIS_ITS ---
Vital Signs 06/09/23 09:01 Height 5 ft 2 in Weight 174 lb 2.643 oz BMI 31.9 BP 157/93 H Blood Pressure Location Lt brachial Position Sitting Pulse 68 Intake Visit Reasons: 6 month follow up Intake Note: Jeanna presents in the office as a 6 month follow up. CC: Bullet Slugs Inspector Required: No Allergies No Known Allergies Allergy (Verified 06/09/23 09:24) HPI HPI 6 month follow up: Details: LAST VISIT: Paraesophageal hernia GERD (gastroesophageal reflux disease) History of diverticulitis Postprandial abdominal bloating Plan Large paraesophageal hernia. Referral to bariatric services for possible repair. Patient will be sent also for upper GI with barium swallow to further evaluate. Continue famotidine and omeprazole. Patient was encouraged to avoid dietary triggers and late night snacking. Staying upright for minimal 3 hours after meals discussed with patient. Eat smaller bites, chew food well, drink fluids it with each bite. I will see patient in 6 months, sooner on as needed basis. Patient is agreeable to this plan and verbalizes understanding of instructions. She was given the opportunity to ask questions and all questions answered. ? Thank you for allowing me to participate in her care Orders Orders FL upper GI w Ba Swallow Today K44.9 Referrals Bariatric Surgery Referral K44.9 TODAY'S VISIT: Upper GI with barium swallow reviewed. Patient was seen by Dr. Givens yesterday and will be having surgery to repair paraesophageal hernia on June 16. Patient surprisingly the results is feeling well. She is not having any GI symptoms. She is currently taking pantoprazole in the morning and famotidine at bedtime. Patient is not having any dyspepsia, dysphagia or odynophagia. Patient will get clarification on how to proceed with her diet just before her procedure. Barium swallow results discussed with patient. Continue avoiding dietary triggers and late night snacking. Staying upright for minimum 3 hours after meals discussed with patient. [facility] Medical History Paraesophageal hernia Class 2 severe obesity with body mass index (BMI) of 35 to 39.9 with serious comorbidity Osteoarthritis of left hip GERD (gastroesophageal reflux disease) Essential (primary) hypertension Surgical History Hx laparoscopic cholecystectomy (04/29/22) History of lumpectomy of left breast History of esophagogastroduodenoscopy (EGD) History of hysterectomy History of tubal ligation History of removal of cyst Family History Father No problems noted. Mother No problems noted. Sister Breast cancer, Onset Age: 60 Maternal Grandmother Breast cancer Maternal Aunt Breast cancer Paternal Aunt Breast cancer Son No problems noted. Brother Heart attack Family/Other Breast cancer [facility] Alcohol intake: current Alcohol intake frequency: a few times a week Patient Tobacco Use Status: Never used Tobacco e-Cigarette/Vaping Use: Never Used Second Hand Smoke Exposure: Yes service: No Current occupational status: employed Current occupation: [employer] Cognitive needs: No Hearing needs: No Vision needs: Yes (glasses) Review of Systems Const Denies weight gain and Denies weight loss ENT Reports no additional complaints, Denies dysphagia and Denies odynophagia Card Reports no additional complaints Resp Reports no additional complaints GI Denies abdominal pain, Denies belching, Denies melena, Denies bloating, Denies change in bowel habits, Denies dysphagia, Denies excessive flatus, Denies dyspepsia, Denies heartburn, Denies diarrhea, Denies loose stools, Denies nausea, Denies odynophagia and Denies vomiting Musc Reports no additional complaints Neuro Reports no additional complaints Psych Reports no additional complaints Endo Reports no additional complaints Physical Exam Vital Signs: Last Vital Signs Pulse 68 06/09/23 09:01 BP 157/93 H 06/09/23 09:01 BMI result Body Mass Index 31.9 Const General: healthy appearing, no acute distress and well developed Nutritional Appearance: obese Orientation/consciousness: patient oriented x3 Resp Effort & Inspection: normal respiratory effort, able to speak in complete sentences, no tracheal deviation and symmetric chest movement Auscultation: clear to auscultation bilaterally Cardio Rate: regular rate GI Inspection: Yes normal to inspection, No distended and Yes obesity Palpation (GI): Soft to palpation, not firm, nontender and No hepatosplenomegaly present Auscultation: normal bowel sounds General: Yes no CVA tenderness Back/Spine/Pelvis Back: no CVA tenderness Skin General skin exam: elasticity normal, turgor normal and dry skin Neuro General: patient oriented x3 Psych Appearance: grossly normal Mental Status: mental status grossly normal Results Reviewed Results Reviewed: UPPER GI BARIUM SWALLOW 04/23/2023 IMPRESSION: 1. Large type IV paraesophageal hernia containing the distal stomach and proximal duodenum. 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 2. Significant gastroesophageal reflux. Significant esophageal dysmotility. 3. Multiple filling defects in the gastric mucosa likely represent small hyperplastic gastric polyps, as seen on recent EGD. 4. The duodenal sweep and proximal jejunum could not be evaluated due to the delay in gastric emptying from the large paraesophageal hernia and reflux. 5. Mild to moderate narrowing Schatzki's ring at the GE junction. This procedure was performed by Keevn Gray PA-C, and supervised by Dr. Pettit Assessment & Plan Assessment & Plan (1) Paraesophageal hernia: Code(s): K44.9 - Diaphragmatic hernia without obstruction or gangrene Category: Medical (2) GERD (gastroesophageal reflux disease): Code(s): K21.9 - Gastro-esophageal reflux disease without esophagitis Category: Medical Qualifiers: Esophagitis presence: without esophagitis Qualified Code(s): K21.9 - Gastro-esophageal reflux disease without esophagitis (3) History of diverticulitis: Code(s): Z87.19 - Personal history of other diseases of the digestive system (4) Postprandial abdominal bloating: Code(s): R14.0 - Abdominal distension (gaseous) Plan Patient will follow-up in the office in July. Proceed with surgery with Dr. Stephen Hunter in June. Reflux precautions with PPI and H2 ally on board. Patient will call the office if she will have any GI concerning symptoms. She is agreeable to this plan and verbalizes understanding of instructions. She was given the opportunity to ask questions and all questions answered. Thank you for allowing me to participate in her care Medications: Discontinued omeprazole Discontinued Reason: Doctor's Order 20 mg PO DAILY 90 caps 1RF Coding Level of Care Code Est Pt Level 4 (09191) Diagnoses Paraesophageal hernia K44.9 Gastroesophageal reflux disease without esophagitis K21.9 Esophagitis presence: without esophagitis History of diverticulitis Z87.19 Postprandial abdominal bloating R14.0 Time Spent (min) 35 Comment 20 minutes spent with patient and additional 15 minutes spent reviewing her records
[2023-06-09 09:01] VITALS: BP 157/93; PULSE 68; BMI 31.9
== END 2023-06-09 10:01 | disposition home or self-care (01) ==
PROVIDERS: PCP Internal Medicine; Visit Provider Nurse Practitioner Family
DX: K44.9 Diaphragmatic hernia without obstruction or gangrene (principal); K21.9 Gastro-esophageal reflux disease without esophagitis; Z87.19 Personal history of other diseases of the digestive system; R14.0 Abdominal distension (gaseous)
CPT/HCPCS: 99214

== ENCOUNTER → 2023-06-09 08:50 | Outpatient (BNVA) | payer MEDICARE, SELFPAY | PROVIDERS: PCP Internal Medicine; Visit Provider Nurse Practitioner Family | DX: K44.9 Diaphragmatic hernia without obstruction or gangrene (principal); K21.9 Gastro-esophageal reflux disease without esophagitis; R14.0 Abdominal distension (gaseous); Z87.19 Personal history of other diseases of the digestive system | CPT/HCPCS: 99212 ==

== ENCOUNTER 2023-06-17 07:31 | Inpatient (IN) | payer MEDICARE, SELFPAY ==
[2023-06-09 08:45] LABS: MANUAL DIFF FLAG NO
[2023-06-09 09:08] LABS: Basophils Percent Auto 0.7 % (0-2); Eosinophils Absolute Auto 0.1 X10*3/uL (0.0-0.4); Eosinophils Percent Auto 1.1 % (0-4); Hematocrit 39.4 % (37.0-47.0); Hemoglobin 13.4 g/dl (12.0-16.0); Imm Gran Abs Auto 0.01 X10*3/uL (0.00-0.03); Imm Gran Pct Auto 0.2 % (0.0-0.4); Lymphocytes Absolute Auto 1.6 X10*3/uL (1.2-4.9); Lymphocytes Percent Auto 37.4 % (20-40); Mean Corpuscular Hemoglobin 30.1 pg (27.0-33.0); Mean Corpuscular Volume 88.5 fL (80.0-98.0); Mean Platelet Volume 9.3 fL (9.4-12.3); Monocytes Absolute Auto 0.5 X10*3/uL (0.1-1.2); Monocytes Percent Auto 10.7 % (2-11); Neutrophils Absolute Auto 2.2 x10*3/uL (2.0-8.3); Neutrophils Percent Auto 49.9 % (45-73); Platelet Count 237 X10*3/uL (160-400); Red Blood Count 4.45 X10*6/uL (4.20-5.50); Red Cell Distribution Width 13.2 % (11.0-16.0); White Blood Count 4.4 X10*3/uL (4.8-10.8)
[2023-06-09 09:21] LABS: INTERNATIONAL NORM RATIO 0.9 (0.9-1.1)
[2023-06-09 09:40] LABS: Alanine Aminotransferase 21 U/L (0-31); Alkaline Phosphatase 106 U/L (39-117); Anion Gap 8 (12-20); Aspartate Amino Transferase 22 U/L (5-31); Bilirubin Total 0.7 mg/dL (0.0-1.0); Blood Urea Nitrogen 9 mg/dL (9-16); Calcium 9.3 mg/dL (8.4-10.2); Carbon Dioxide 33 mmol/L (22-29); Chloride 103 mmol/L (96-108); Estimated Glomerular Filt Rate > 60; Glucose Random 88 mg/dL (60-115); Potassium 3.5 mmol/L (3.3-5.1); Sodium 140 mmol/L (135-145); Total Protein 7.1 g/dL (6.5-8.0)
[2023-06-15 11:51] VITALS: BMI 30.7
--- NOTE | 2023-06-15 14:10 | P.CONAN_ITS ---
Documented by User: Lupe Serna NP 06/15/23 14:15 HPI - Anesthesia Eval Consult details Narrative: 67yo F for Lap Paraesophageal Hernia Repair s/p EGD and [place] 03/2023 with MAC PMFSH Active Problems Active Problems: All Active Problems Annual physical exam (Acute) Chronic cholecystitis (Acute) Obesity (BMI 30.0-34.9) (Acute) Cholelithiasis (Acute) Paraesophageal hernia (Acute) Class 2 severe obesity with body mass index (BMI) of 35 to 39.9 with serious comorbidity (Acute) Osteoarthritis of left hip (Acute) GERD (gastroesophageal reflux disease) (Acute) Essential (primary) hypertension (Acute) Past Medical History Medical History Paraesophageal hernia Class 2 severe obesity with body mass index (BMI) of 35 to 39.9 with serious comorbidity Osteoarthritis of left hip GERD (gastroesophageal reflux disease) Essential (primary) hypertension Family History Family History Father No problems noted. Mother No problems noted. Sister Breast cancer, Onset Age: 60 Maternal Grandmother Breast cancer Maternal Aunt Breast cancer Paternal Aunt Breast cancer Son No problems noted. Brother Heart attack Family/Other Breast cancer Family history of problems with anesthesia: No Surgical History Surgical History History of esophagogastroduodenoscopy (EGD) (04/08/23) Hx of colonoscopy (04/08/23) Hx laparoscopic cholecystectomy (04/29/22) History of lumpectomy of left breast History of esophagogastroduodenoscopy (EGD) History of hysterectomy History of tubal ligation History of removal of cyst History of Problems with Anesthesia: No Social History Social History Household Members: Spouse Housing: Condominium Are you a primary resident care aide to a significant other at home: No Do you presently have visiting nurse or other home services: No Alcohol intake: current Alcohol intake frequency: a few times a week Patient Tobacco Use Status: Never used Tobacco e-Cigarette/Vaping Use: Never Used Second Hand Smoke Exposure: Yes Have you been hit, kicked, punched, or otherwise hurt by someone within the past year? If so, by whom?: No Are you DNR?: No Advance Directives: No (willl bring dos) Advance Directives Information Provided: No Advance Directives on File: No Recently lost weight without trying: No service: No Current occupational status: employed Current occupation: accounts payable, babysit Cognitive needs: No Hearing needs: No Vision needs: Yes (glasses) Meds Allergies Allergy/AdvReac Type Severity Reaction Status Date / Time No Known Allergies Allergy Verified 06/17/23 07:38 Home Medications ?Medication ?Instructions ?Recorded ?Confirmed ?Last Taken ?Type calcium citrate 315 mg-vitamin D3 1 tab PO DAILY 01/29/20 06/07/23 06/16/23 History 5 mcg (200 unit) tablet Exam Height,Weight and Vital Signs: Height 5 ft 2 in Weight 76.204 kg Pertinent Lab Results Pertinent Lab Results: Laboratory Tests 06/09/23 06/09/23 08:35 08:43 WBC 4.4 L RBC 4.45 Hgb 13.4 Hct 39.4 MCV 88.5 MCH 30.1 MCHC 34.0 RDW 13.2 Plt Count 237 MPV 9.3 L Immature Gran % (Auto) 0.2 Neut % (Auto) 49.9 Lymph % (Auto) 37.4 [place] % (Auto) 10.7 Eos % (Auto) 1.1 Baso % (Auto) 0.7 Lymph # (Auto) 1.6 [place] # (Auto) 0.5 Eos # (Auto) 0.1 Baso # (Auto) 0.0 Abs Immat Gran (auto) 0.01 Absolute Neuts (auto) 2.2 Absolute Nucleated RBC 0.000 Nucleated RBC % (auto) 0.0 PT 11.0 L INR 0.9 APTT 28.0 Sodium 140 Potassium 3.5 Chloride 103 Carbon Dioxide 33 H Anion Gap 8 L BUN 9 Creatinine 0.64 Estim Creat Clear Calc TNP Estimated GFR > 60 Random Glucose 88 Calcium 9.3 Total Bilirubin 0.7 AST 22 ALT 21 Alkaline Phosphatase 106 Total Protein 7.1 Albumin 4.0 Blood Type B Negative Antibody Screen NEGATIVE Narrative Narrative: EKG 08/2022 Vent. Rate : 062 BPM Atrial Rate : 062 BPM P-R Int : 150 ms QRS Dur : 090 ms QT Int : 420 ms P-R-T Axes : 045 033 044 degrees QTc Int : 426 ms Sinus rhythm with occasional Premature ventricular complexes Otherwise normal ECG No previous ECGs available Assessment and Plan Assessment Anesthesia Assessment: Chart Reviewed Final Anesthetic Review Family History of Problems with Anesthesia: No History of Problems with Anesthesia: No Documented by User: Lawanda Hughes MD 06/17/23 09:52 [facility] Past Medical History Medical History Paraesophageal hernia Class 2 severe obesity with body mass index (BMI) of 35 to 39.9 with serious comorbidity Osteoarthritis of left hip GERD (gastroesophageal reflux disease) Essential (primary) hypertension Family History Family History Father No problems noted. Mother No problems noted. Sister Breast cancer, Onset Age: 60 Maternal Grandmother Breast cancer Maternal Aunt Breast cancer Paternal Aunt Breast cancer Son No problems noted. Brother Heart attack Family/Other Breast cancer Surgical History Surgical History History of esophagogastroduodenoscopy (EGD) (04/08/23) Hx of colonoscopy (04/08/23) Hx laparoscopic cholecystectomy (04/29/22) History of lumpectomy of left breast History of esophagogastroduodenoscopy (EGD) History of hysterectomy History of tubal ligation History of removal of cyst Social History Social History Household Members: Spouse Housing: Condominium Are you a primary resident care aide to a significant other at home: No Do you presently have visiting nurse or other home services: No Alcohol intake: current Alcohol intake frequency: a few times a week Patient Tobacco Use Status: Never used Tobacco e-Cigarette/Vaping Use: Never Used Second Hand Smoke Exposure: Yes Have you been hit, kicked, punched, or otherwise hurt by someone within the past year? If so, by whom?: No Are you DNR?: No Advance Directives: No (willl bring dos) Advance Directives Information Provided: No Advance Directives on File: No Recently lost weight without trying: No service: No Current occupational status: employed Current occupation: accounts payable, babysit Cognitive needs: No Hearing needs: No Vision needs: Yes (glasses) Meds Allergies Allergy/AdvReac Type Severity Reaction Status Date / Time No Known Allergies Allergy Verified 06/17/23 07:38 Home Medications ?Medication ?Instructions ?Recorded ?Confirmed ?Last Taken ?Type calcium citrate 315 mg-vitamin D3 1 tab PO DAILY 01/29/20 06/07/23 06/16/23 History 5 mcg (200 unit) tablet Exam Airway Mallampati Class: II TM Dist: >3cm Neck ROM: Full Loose/Missing/Broken Teeth: No Heart: RRR Lungs: CTA Assessment and Plan Assessment Anesthesia Assessment: Anesthesia Plan Discussed Final Anesthetic Review NPO: Yes ASA Class: II Final Preanesthetic Review: Meds/Allgs Chart Reviewed, Consent Obtained/Reviewed and Anes Risks/Benef Reviewed Patient Risk: Low Procedure Risk: Intermediate Anesthetic Plan Anesthetic Plan: GA Disposition: Standard PACU
[2023-06-17] VITALS (11 sets, daily range): BP systolic 122–140; BP diastolic 67–82; PULSE 74–95; RESP 12–20; TEMP 36.2–37.2; O2SAT 88–98; BMI 30.9
--- NOTE | ~2023-06-17 | XR_ITS ---
EXAMINATION: XR CHEST CLINICAL INFORMATION: Postop large hiatal hernia repair. COMPARISON: None available. TECHNIQUE: Frontal portable view of the chest was obtained. 4:00 PM FINDINGS: There is subcutaneous emphysema at the base of the neck and the upper chest and axillary areas bilaterally. This consistent with history of surgery. No pneumothorax. No focal airspace opacity. No pleural effusion. Heart size is normal. Cardiac and mediastinal contours are normal. XR/XR chest 1V IMPRESSION: Subcutaneous emphysema consistent with history of surgery. No pneumothorax.
--- NOTE | 2023-06-17 07:31 | ECG_ITS ---
Test Reason : pre op Blood Pressure : / mmHG Vent. Rate : 073 BPM Atrial Rate : 073 BPM P-R Int : 148 ms QRS Dur : 094 ms QT Int : 416 ms P-R-T Axes : 058 014 036 degrees QTc Int : 458 ms Sinus rhythm with marked sinus arrhythmia Otherwise normal ECG When compared with ECG of 03-SEP-2022 11:07, Premature ventricular complexes are no longer Present Referred By: Lupe Serna Electronically Signed By:MAURICIO HOWARD
[2023-06-17] MEDS: Aprepitant 32 MG/4.4 ML VIAL IVPUSH (08:10)
[2023-06-17] MEDS: Lactated Ringers 1,000 ML 999 ML IV (08:12)
[2023-06-17] MEDS: Lactated Ringers 1,000 ML 100 ML IVCONT ×2 (09:34→16:17)
--- NOTE | 2023-06-17 10:57 | MHC.SHP ---
Pre-Procedural Eval Section A - 24 Hr Update-Section A only Date of Service: 06/17/23 The patient is an INPATIENT: Yes The patient has been examined within 24 hours of the surgical procedure. The History & Physical has been completed within 30 days and I have reviewed it.: Yes Section B - Complete if H&P > 30 days Chief Complaint: paraesophageal hernia Relevant Family History (Specify if Yes): No Relevant Social History: None Present Medications: None Medical History: No relevant PMH History of Previous Operations: No relevant previous surgery Allergies: Allergies Allergy/AdvReac Type Severity Reaction Status Date / Time No Known Allergies Allergy Verified 06/17/23 07:38 Review of Systems Sugical H&P ROS: Negative: Constitution, Cardiovascular, Respiratory, Neurological, Psychiatric, Hem-Onc, Allergic/Immunologic, Gastrointestinal, Genitourinary, Musculoskeletal, Integumentary, Endocrine and Eyes/Ears/Nose/Throat Exam Surgical H&P Exam: Normal: HEENT, Normal: Heart, Normal: Lungs, Normal: Extremities, Normal: Abdomen, Normal: Skin and Normal: Neurological Plan Diagnosis/Plan: Unchanged I have reviewed the history and physical and performed a pertinent physical examination on my patient. No changes have occurred unless specified. Time Spent With Patient Time: Total time managing care of this patient today ____ minutes.
--- NOTE | 2023-06-17 11:06 | P.BOP_ITS ---
Brief Operative Note Date of Service: 06/17/23 Pre-op diagnosis: Paraesophageal hernia Post-op diagnosis: same Procedure: Date of Service: 06/17/2023 Pre-op diagnosis: Paraesophageal hernia with mesentero-axial volvulus Post-op diagnosis: same (Giant paraesophageal hernia & abdominal adhesions) Procedure: Procedure: COMORBIDITIES: GERD,, hypertension, DJD ?INDICATIONS: The patient is a 67 year old male who was referred to me from Dr. Winkler for a diaphragmatic hernia and GERD confirmed by EGD and UGI. The patient is scheduled today for diaphragmatic hernia repair. Risks of recurrent hernia, dysphagia, persistent GERD, VTE, leak, infection and bleeding were discussed with the patient and he is in agreement with the plan. PROCEDURE: Esophago-gastroscopy, laparoscopic lysis of adhesions, laparoscopic repair of incarcerated diaphragmatic hernia and laparoscopic gastropexy. UNIQUELY DIFFICULT CASE DUE TO THE GIANT PARAESOPHAGEAL HERNIA AND EXTENSIVE INTRA-ABDOMINAL ADHESIONS DESCRIPTION OF PROCEDURE: After informed consent was obtained from the patient, the patient was given preoperative antibiotics, and was transferred to the operating room. After successful induction of general anesthesia, pneumatic compression devices were placed on both lower extremities. An upper endoscopy was performed next. The oropharynx and upper esophagus appeared to be within normal limits. Because of the paraesophageal hernia I was not able to pass the scope into the distal stomach. After all fluid and air were suctioned and the stomach was fully decompressed, the scope was withdrawn and secured in the mid esophagus. The patient was then prepped and draped in the usual sterile manner. Abdominal access was established at the right upper quadrant with the Jessica technique. The abdomen was insufflated with CO2 to a pressure of 15 mmHg. Following that additional ports were placed, specifically two 5 mm Versi-step ports to the left upper and one at right upper quadrant. 1% lidocaine plain was used to infiltrate all port sites as well as all fascia defects. Following that, the patient was placed in a steep reverse Trendelenburg position. An additional 5 mm port was placed to the right flank for the Mediflex retractor that was used to retract the left lobe of the liver. There was a giant paraesophageal hernia with about half of the stomach herniated into the chest next to the esophagus. I then opened the gastrocolic ligament between the transverse colon and the greater curvature of the stomach with the ultrasonic device to enter the lesser sac and facilitate the ligation of the short gastric vessels. I started at at the upper third along the greater curvature and using the Thunderbeat, all attachments were divided. There was an obvious significant-sized paraesophageal hiatal hernia. The stomach was incarcerated into the mediastinum with multiple thick adhesions. Mobilization of the stomach was very difficult and required tedious and careful dissection. I continued dissecting along the hiatus toward the left keshia into the mediastinum mobilizing the hernia sac from the mediastinum. The esophagus was dissected off the aorta. The pars flaccida was opened. It was actually herniated into the hernia defect. The vena cava was dilated and it was carefully protected. I then continued by dissecting even further into the posterior retro- esophageal space all the way to the angle of His. I continued to mobilize the esophagus into the mediastinum circumferentially. There was a large vessel near the right keshia which was spared and preserved. The esophagus was densely adhrent to the aorta and the majority of these adhesions were mobilized. Both vagal nerves were seen and preserved. With extensive circumferential dissection into the mediastinum, I was able to bring the GE junction at least 3cm below the cru ra. I closed the hernia defect with four interrupted #0 Surgidac sutures using the Endo Stitch device, three of which were placed posterior and one of which anterior to the esophagus. ? A gastropexy was then performed in order to prevent postoperative GERD and partial gastric volvulus. Several interrupted 2.0 Surgidac sutures were placed between the greater curvature of the dissected stomach and the previously divided greater omentum and gastro-colic ligament using the Endo-Stitch device. ?An upper endoscopy was performed. There was no narrowing at the GE junction or any esophageal injury. The scope was easily advanced all the way to the pylorus which was clearly visualized. There was no narrowing anywhere. I confirmed that the GE junction was 3cm intra-abdominally. At that point the gastroscope was withdrawn from the patient?s mouth while we were decompressing the bowel and the stomach from any remaining air. I looked into the lesser sac to see how the stomach was situating and it was situating well. There was no bleeding from the, spleen, or short gastric vessels. The Mediflex retractor was removed, and the undersurface of the liver was inspected and there was no bleeding. The patient was placed in supine position. Then 30cc of Ropivacaine plain with 10 mg of Dexamethasone were used to infiltrate the fascial closure as well as all skin incisions. A total of 7ml Zynrelef was applied in the Jessica wound. At this point, the abdomen was deflated, all ports were removed under direct vision, and no bleeding was noted from any of the port sites. The skin incisions were irrigated with saline and were closed with 4-0 absorbable monofilament sutures. Steri-Strips and OpSites were used to cover all incisions. The patient was extubated and was transferred in stable condition to the recovery room for further care. I was present and performed all jackson parts of the procedure. Salazar was the first breaker feeder. There were no residents to assist with this case. Andriy Givens MD, PhD, FACS Surgeon: Carl Givens MD Anesthesia: GETA, local and other (TAP block and 7ml Zynrelef) Was an Plywood Factory Worker used for this Procedure?: No Plywood Factory Worker: Fabio Salazar Estimated blood loss (mL): 10 IV fluids (mL): 2,500 Urine output (mL): 100 Pathology: none sent Condition: stable Disposition: PACU
--- NOTE | 2023-06-17 11:12 | P.PNGS_ITS ---
Subjective Subjective Date of Service: 06/17/23 Interval history: Feels well. Mild incisional pain. She is tolerating phase 1 bariatric diet Physical Exam 2 Vital Signs: Vital Signs: Last Vital Signs Temp 97.6 F 06/17/23 07:53 Pulse 74 06/17/23 07:53 Resp 15 06/17/23 07:53 BP 122/82 06/17/23 07:53 Pulse Ox 96 06/17/23 07:53 O2 Del Method Room Air 06/17/23 07:53 BMI result Body Mass Index 30.9 GI: Inspection: Yes normal to inspection, Yes incision (clean, dry and intact) and Yes obesity Palpation (GI): Soft to palpation Extrem: Right lower extremity: normal to inspection (no calf tenderness) L eft lower extremity: normal to inspection (no calf tenderness) Objective Data Active Medications Albuterol Sulfate (Albuterol Sulfate (0.083%) 2.5 Mg/3 Ml Vial.Neb) 2.5 mg INHALE ONCE PRN PRN Reason: Wheezing Stop: 06/17/23 15:53 Fentanyl (Fentanyl Citrate/Pf 100 Mcg/2 Ml Vial) 25 mcg IVPUSH Q5M PRN; Protocol PRN Reason: Pain, Moderate(Pain Scale 4-6) Stop: 06/17/23 15:52 Hydromorphone HCl (Hydromorphone Hcl 0.5 Mg/0.5 Ml Syringe) 0.25 mg IVPUSH Q5M PRN; Protocol PRN Reason: Pain, Severe (Pain Scale 7-10) Stop: 06/17/23 15:52 Lactated Ringer's (Lr) 1,000 mls @ 100 mls/hr IVCONT .Q10H RACHEL Last Admin: 06/17/23 09:34 Dose: 100 mls/hr Documented By: ADRIA Ondansetron HCl (Ondansetron Hcl 4 Mg/2 Ml Vial) 4 mg IVPUSH ONCE PRN PRN Reason: Nausea and Vomiting Stop: 06/17/23 15:52 Labs 06/17/23 15:37 06/17/23 15:37 Procedures Date of Service Date of Service: 06/17/23 Progress Note: A&P Assessment and plan (1) Obesity (BMI 30.0-34.9): Status: Acute Assessment and Plan: s/p laparoscopic lysis of adhesions, diaphragmatic hernia repair and gastropexy Doing well Will check am labs and if OK the patient will be discharged home (2) Paraesophageal hernia: Status: Acute (3) Mesenteroaxial gastric volvulus: Status: Acute (4) GERD (gastroesophageal reflux disease): Status: Acute (5) Essential (primary) hypertension: Status: Acute (6) Osteoarthritis of left hip: Status: Acute (7) Status post repair of paraesophageal diaphragmatic hernia: Status: Acute Time Spent With Patient Time: Total time managing care of this patient today ____ minutes. Quality Stroke Does the patient have a stroke diagnosis?: No VTE Prior VTE?: No VTE Risk Level:: Surgical - moderate VTE Device Contraindication: N/A - Device Ordered VTE Drug Contraindication: Treatment Not Indicated
--- NOTE | 2023-06-17 15:02 | P.DS_ITS ---
DS: Providers Provider Date of Service: 06/18/23 Date of admission: 06/17/23 07:31 Primary care physician: David Mendoza MD DS: Diagnosis Discharge Diagnosis (1) Obesity (BMI 30.0-34.9): Status: Acute (2) Paraesophageal hernia: Status: Acute (3) Mesenteroaxial gastric volvulus: Status: Acute (4) GERD (gastroesophageal reflux disease): Status: Acute (5) Essential (primary) hypertension: Status: Acute (6) Osteoarthritis of left hip: Status: Acute DS: Summary Hospital Course Hospital Course: ADMITTING DIAGNOSIS: obesity, htn paraesophageal hernia, gerd ? DISCHARGE DIAGNOSIS: same, s/p laparoscopic repair diaphragmatic hernia ? PAST SURGICAL HISTORY: laparoscopic cholecystectomy, hysterectomy, tubal ligation ? PROCEDURE: upper endoscopy, laparoscopic repair of diaphragmatic hernia, gastropexy ? DISCHARGE SUMMARY: ? History of Present Illness: ? The patient is a?67 year-old woman with a BMI of 31.5 kg/m2 and associated co- morbidities as described above. The patient had extensive work-up, and was electively scheduled for laparoscopic, possible open repair of diphragmatic hernia and gastropexy. Risks and complications of the surgery were discussed with the patient in advance, particularly the possibility of , pulmonary embolism, bleeding, bowel injury, GERD, cardiac, renal or pulmonary complications. The patient understood all the risks and was in agreement with the surgical plan. ? Hospital Course: ? The patient underwent an uneventful laparoscopic repair of diaphragmatic hernia with gastropexy on the day of admission. Postoperatively, the patient was transferred to the surgical floor. The patient received IV Acetaminophen and IV dilaudid for pain control. Patient was started on bariatric phase 1 diet POD #0. On postoperative day one, the patient was feeling well without nausea, vomiting, fevers, or tachycardia. The patient had some mild incisional pain and the abdomen was soft. ? On the morning of postoperative day one, the patient was continued on 1 ounce of water or ice every half hour. During the day, the patient did fairly well, having some incisional pain, but able to ambulate adequately and to tolerate liquids well. ? Since the patient is doing well, we decided that the patient was ready to be discharged. The patient was given instructions to follow-up with me next week and to call my office for any fever over 101, persistent abdominal pain, nausea, vomiting, GERD, symptoms of DVT such as calf tenderness, or leg swelling, or pulmonary embolism such as chest pain or shortness of breath. The patient was also instructed to drink 40-60 ounces of liquids per day using the 1-ounce cups. The patient had been given prescriptions for Tylenol for pain, Zofran prn for nausea, and pantoprazole and carafate previously. The patient was encouraged to ambulate and use the incentive spirometer. The patient was allowed to shower, but no baths, and encouraged to stay active at home. All of these instructions were given to the patient personally. All questions were answered and the patient understood all instructions, the instructions were also given to the patient in print. Time Attestation Total time managing care of this patient today: 25 mintues. Discharge Coordination Time (in mins): 25 Quality: Safe Use of Opioids Does Pt have an Active Cancer Diagnosis on the Problem List?: No Quality: Stroke Does the patient have a stroke diagnosis?: No Physical Exam Vital Signs: Vital Signs: Last Vital Signs Temp 99.0 F 06/17/23 14:49 Pulse 81 06/17/23 14:54 Resp 16 06/17/23 14:54 BP 130/70 06/17/23 14:54 Pulse Ox 95 06/17/23 14:54 O2 Del Method Simple Mask 06/17/23 14:54 O2 Flow Rate 6 06/17/23 14:54 BMI result Body Mass Index 30.9 Discharge Plan Discharge Anticipated Discharge Date/Time: 06/18/23 10:00 Patient Disposition: Home, Self-Care Discharge Diagnosis: s/p laparoscopic repair of paraesophageal hernia Referrals: David Mendoza MD [Primary Care Provider] - 1 Week Discharge Medications: Continued calcium citrate-vitamin D3 315 mg-5 mcg (200 unit) tablet 1 tab PO DAILY hydrochlorothiazide 25 mg tablet 25 mg PO DAILY Qty: 90 1RF famotidine 20 mg tablet 20 mg PO BEDTIME Qty: 30 3RF lisinopril 20 mg tablet 40 mg PO DAILY Qty: 180 1RF simethicone 125 mg capsule 125 mg PO BID-QID PRN (Reason: abdominal distention) Qty: 120 3RF pantoprazole 40 mg tablet,delayed release (DR/EC) 40 mg PO DAILY Qty: 90 0RF sucralfate 100 mg/mL suspension 10 ml PO BID Qty: 600 2RF ondansetron 4 mg tablet,disintegrating 4 mg PO Q12H Qty: 20 0RF Rx Instructions: Only take one every 12 hours as needed if you have nausea Discontinued polyethylene glycol 3350 [Miralax] 17 gram powder in packet 17 g PO DAILY Qty: 14 0RF Rx Instructions: Mix each packet with 8oz of water, Crystal light, or Gatorade zero, or Propel and do 7 packets on 06/15/23 and another 7 packets on 06/16/23 Discharge Orders: Discharge Order (Routine); Ordered 06/18/23 Ordered By: Fabio Salazar Activity on Discharge: No heavy lifting Stand Alone Forms: Patient Portal Discharge page Print Language: Nepalese Care Plan Goals: improved gerd symptoms Health Concerns: gerd, obesity Plan of Treatment: No tub baths, sex or returning to work until discussed at first post op appoi ntment. No exercise, alcohol, tobacco or illegal drug use. Continue to use incentive spirometer hourly while awake. Walk in home for 5- 10 minutes every 2 hours during the first week. Follow all instructions in the bariatric handbook and call with any questions.Discharge Instructions 1. Please call your doctor or come back to the emergency room should any new symptoms arise. 2. You will receive a courtesy call from [facility] 24-48 hours after discharge. 3. Activity: abstain from alcohol, practice limited stair climbing, no bending, no driving, no exercise, no illicit substances, no lifting, no sex, no tub bath, no work. 4. Diet: continue as discussed with Dr. Givens. 5. Dressing Change/Wound Care: Your incision is covered by clear bandages and guaze underneath. If the area is tender, you may apply an ice pack for short intervals (no more than 20 minutes on, followed by at least 20 minutes off). Do not apply heat. Do not use creams, lotions, or topical antibiotics unless instructed to do so by your surgeon. These can cause infection or allergic reaction. 6. Call your doctor if: - Your temperature exceeds 101.5 F - You experience excessive pain or swelling - You have an unexpected reaction to medication - You have excessive bleeding - You experience continued vomiting/nausea - Your incision begins to separate - Your incision shows signs of infection such as increased redness, swelling, excessive pain, heat, or drainage (light blood or clear fluid is normal) 7. General instructions: No lifting greater than 5 lbs for 1 week and not more than 20lbs the next 3?weeks. No driving until seen at the office in 5-7 days after surgery. If you do not move your bowels in the next 2 days, please tell?Dr. Givens. Please walk around your home every hour or two to prevent blood clots from forming in your legs. You do not need to wake from sleeping to walk. Please sleep in a bed or couch to prevent kinking at the hips and knees. Please take your incentive spirometer (your lung foot roentgenologist) home with you and use it for the next few days to prevent pneumonia. You may shower, no hot tubs, baths or swimming pools.?Please follow the post op diet instructions you are?given by Dr Givens? and text me daily at 5-6pm for an update.?If you have any issues or concerns or questions please communicate this to him via text.? The Celebrate shakes have all of the bariatric vitamins you need if you consume these shakes. If you are drinking other protein shakes, you will need to purchase the Celebrate multivitamins and calcium that are available in the hospital gift shop on the first floor of the main hospital.??Do not take anything without first discussing with Dr Givens. Please make sure you are consuming at least 40 ounces of fluids per day starting the?day AFTER your discharge from the hospital. Always drink 1-2 ml per minute using the 5ml?syringe. If you drink faster you may experience?bloating,?gas pain, burping, nausea or heartburn. In that case please slow down your pace and use the syringe to?understand better the?proper?pace and volume of drinking. Do not hesitate to contact the office with any questions at . The patient's medical history has been reviewed and they are considered low risk for post op DVT and therefore DVT prophylaxis is not considered necessary. Travel after surgery was reviewed. The patient has not disclosed any travel plans during the first 30 days after surgery and they have been advised that within the first 30 days after surgery any bus, plane, train or car travel over 2 hours in duration is contraindicated due to the possibility of developing blood clots from immobility. Any travel, needs to include periods of ambulation of 10 minutes in duration every 2 hours.? The patient was instructed to discuss any plans for travel during this period with their bariatric surgeon. Assessment: stable, s/p laparoscopic repair paraesophageal hernia
[2023-06-17 15:49] LABS: Hematocrit 36.9 % (37.0-47.0); Hemoglobin 12.9 g/dl (12.0-16.0)
[2023-06-17 16:03] LABS: Anion Gap 13 (12-20); Blood Urea Nitrogen 10 mg/dL (9-16); Calcium 9.1 mg/dL (8.4-10.2); Carbon Dioxide 25 mmol/L (22-29); Chloride 105 mmol/L (96-108); Creatinine Clr Calc Pharmacy 71.7; Estimated Glomerular Filt Rate > 60; Glucose Random 162 mg/dL (60-115); Sodium 140 mmol/L (135-145)
[2023-06-17] MEDS: 0.9 % Sodium Chloride Flush 3 ML SYRINGE IVFLUSH ×2 (16:17→19:31)
--- NOTE | 2023-06-17 17:00 | PHA.MEDREC ---
Pharmacy Consult ? Medication Reconciliation Pharmacy has reviewed the medication reconciliation completed by nursing.
[2023-06-17] MEDS: ceFAZolin Sodium/Dextrose,Iso 2 GM/50 ML PIGGYBACK IV (17:20)
[2023-06-17] MEDS: Acetaminophen 1,000 MG/100 ML PIGGYBACK 16.7 MG IV (19:30)
[2023-06-17] MEDS: KCl 40 mEq in 0.9 % Sodium Chl 40 MEQ/1,000 ML IV.SOLN 250 MEQ IV (19:44)
[2023-06-17] MEDS: Albuterol/Iprat 2.5/0.5MG 3 ML AMPUL.NEB INHALE (19:49)
[2023-06-17 21:59] LABS: Anion Gap 16 (12-20); Blood Urea Nitrogen 7 mg/dL (9-16); Calcium 9.2 mg/dL (8.4-10.2); Carbon Dioxide 20 mmol/L (22-29); Chloride 105 mmol/L (96-108); Creatinine Clr Calc Pharmacy 77.9; Estimated Glomerular Filt Rate > 60; Glucose Random 191 mg/dL (60-115); Potassium 3.1 mmol/L (3.3-5.1); Sodium 138 mmol/L (135-145)
[2023-06-17] MEDS: Famotidine/PF 20 MG/2 ML VIAL IVPUSH (21:59)
[2023-06-18] MEDS: Acetaminophen 1,000 MG/100 ML PIGGYBACK 16.7 MG IV (01:22)
[2023-06-18] MEDS: Lactated Ringers 1,000 ML 100 ML IVCONT (01:23)
[2023-06-18 03:31] VITALS: BP 134/80; PULSE 70; RESP 18; TEMP 36.2; O2SAT 93
[2023-06-18 06:28] LABS: MANUAL DIFF FLAG NO
[2023-06-18 06:34] LABS: Basophils Percent Auto 0.1 % (0-2); Hematocrit 38.2 % (37.0-47.0); Hemoglobin 13.2 g/dl (12.0-16.0); Imm Gran Abs Auto 0.05 X10*3/uL (0.00-0.03); Imm Gran Pct Auto 0.5 % (0.0-0.4); Lymphocytes Absolute Auto 1.3 X10*3/uL (1.2-4.9); Lymphocytes Percent Auto 12.6 % (20-40); Mean Corpuscular HGB Conc 34.6 g/dl (31.0-35.0); Mean Corpuscular Hemoglobin 30.5 pg (27.0-33.0); Mean Corpuscular Volume 88.2 fL (80.0-98.0); Mean Platelet Volume 9.8 fL (9.4-12.3); Monocytes Absolute Auto 0.5 X10*3/uL (0.1-1.2); Monocytes Percent Auto 4.7 % (2-11); Neutrophils Absolute Auto 8.1 x10*3/uL (2.0-8.3); Neutrophils Percent Auto 82.1 % (45-73); Platelet Count 227 X10*3/uL (160-400); Red Blood Count 4.33 X10*6/uL (4.20-5.50); Red Cell Distribution Width 13.1 % (11.0-16.0); White Blood Count 9.9 X10*3/uL (4.8-10.8)
[2023-06-18 07:04] LABS: Anion Gap 12 (12-20); Blood Urea Nitrogen 6 mg/dL (9-16); Calcium 9.1 mg/dL (8.4-10.2); Carbon Dioxide 21 mmol/L (22-29); Chloride 109 mmol/L (96-108); Estimated Glomerular Filt Rate > 60; Glucose Random 127 mg/dL (60-115); Potassium 3.8 mmol/L (3.3-5.1); Sodium 138 mmol/L (135-145)
[2023-06-18 07:45] VITALS: BP 162/77; PULSE 65; RESP 16; TEMP 36.2; O2SAT 95
[2023-06-18] MEDS: Albuterol/Iprat 2.5/0.5MG 3 ML AMPUL.NEB INHALE (07:45)
[2023-06-18 07:46] VITALS: PULSE 66; RESP 16; O2SAT 96
[2023-06-18] MEDS: hydroCHLOROthiazide 25 MG TABLET PO (08:20)
[2023-06-18] MEDS: Famotidine/PF 20 MG/2 ML VIAL IVPUSH (08:20)
[2023-06-18] MEDS: lisinopriL 40 MG TABLET PO (08:20)
[2023-06-18 08:35] VITALS: O2SAT 94
--- NOTE | 2023-06-18 09:42 | HO.POSTANES ---
Post Anesthesia Evaluation Post Anesthesia Evaluation Date of Service: 06/17/23 Vital Signs: Vital Signs Temp Pulse Resp BP Pulse Ox O2 Del Method 06/18/23 08:35 94 Room Air 06/18/23 07:46 66 16 06/18/23 07:45 97.2 F 65 16 162/77 H 95 Room Air 06/18/23 03:31 97.2 F 70 18 134/80 93 Room Air Anesthesia: General Endotracheal-GETA Mental Status: Awake Pain Control: Satisfactory Nausea/Vomiting: None Hydration: Adequate Anesthesia-Related Issues: No Anes. Related Issues
--- NOTE | 2023-06-18 10:14 | MHC.CM.PN ---
pt is dcd home no servies pt is independent has a ride home
== END 2023-06-18 10:17 | disposition home or self-care (01) | DRG 328 ==
LOC: HO.SSSA 15:09 → HO.S3 15:14
PROVIDERS: Physician Assistant Surgical; Admitting Provider Surgery; PCP Internal Medicine; Visit Provider Surgery
PROC: 0BQT4ZZ Repair Diaphragm, Percutaneous Endoscopic Approach (ICD-10-PCS; CPT 43659; principal; 2023-06-17 10:00)
DX: K44.0 Diaphragmatic hernia with obstruction, without gangrene (principal); K66.0 Peritoneal adhesions (postprocedural) (postinfection); E66.9 Obesity, unspecified; K31.89 Other diseases of stomach and duodenum; Z68.30 Body mass index [BMI] 30.0-30.9, adult; I10 Essential (primary) hypertension; M16.12 Unilateral primary osteoarthritis, left hip; Z79.899 Other long term (current) drug therapy
CPT/HCPCS: 43659; 43281; 36415; 71045; 80048; 80053; 85014; 85018; 85025; 85610; 85730; 86850; 86900; 86901; 93005; 94640; 96361; 96365; 96366; 96367; 96375; 96376; C9145; J0131; J0690; J1100; J1170; J2250; J2371; J2405; J2598; J2704; J2795; J3010; J3480; J7120

== ENCOUNTER → 2023-06-17 07:31 | Outpatient (BNV) | payer MEDICARE, SELFPAY | PROVIDERS: Admitting Provider Surgery; PCP Internal Medicine; Visit Provider Surgery | DX: E66.9 Obesity, unspecified (principal); Z68.31 Body mass index [BMI] 31.0-31.9, adult; K44.9 Diaphragmatic hernia without obstruction or gangrene | CPT/HCPCS: 43281; 99024 ==

== ENCOUNTER → 2023-06-17 07:31 | Outpatient (BNV) | payer MEDICARE, SELFPAY | PROVIDERS: Admitting Provider Surgery; PCP Internal Medicine; Visit Provider Internal Medicine | DX: I49.8 Other specified cardiac arrhythmias (principal) | CPT/HCPCS: 93010 ==

== ENCOUNTER 2023-06-25 10:58 | Outpatient (AMB) | payer MEDICARE, SELFPAY ==
--- NOTE | 2023-06-25 11:13 | MHC.OFFVISWM ---
VS Expanded 06/25/23 11:19 BP 178/97 H Blood Pressure Location Rt brachial Blood Pressure Position Sitting Pulse 66 Pulse Source Pulse Oximeter Temp 96.1 F L Temperature Source Tympanic Pulse Oximetry 94 Oxygen Delivery Method Room Air Height 5 ft 2 in Weight 164 lb BMI 30.0 Intake Visit Reasons: (OV) PO Paraesophageal Hernia 06/17/23 Allergies No Known Allergies Allergy (Verified 06/25/23 11:22) HPI Comments Details: Very pleasant 67-year-old female returns to the office today in follow-up. She is 8 days status post large paraesophageal hernia repair performed laparoscopically by Dr. Givens on 06/17/2023. She has been communicating with Dr. Givens. She is using celebrate rebuild, 1 scoop, x3. She has been instructed to increase to 1 scoop, 2 scoops, 2 scoops. She has no further reflux and is no longer requiring any medications for heartburn. She continues taking pantoprazole and sucralfate to heal her stomach. No complaints of pain. [facility] Medical History (Updated 06/17/23 @ 11:14 by Carl Givens MD) Paraesophageal hernia Class 2 severe obesity with body mass index (BMI) of 35 to 39.9 with serious comorbidity Osteoarthritis of left hip GERD (gastroesophageal reflux disease) Essential (primary) hypertension Surgical History Hx of hernia repair History of esophagogastroduodenoscopy (EGD) (04/08/23) Hx of colonoscopy (04/08/23) Hx laparoscopic cholecystectomy (04/29/22) History of lumpectomy of left breast History of esophagogastroduodenoscopy (EGD) History of hysterectomy History of tubal ligation History of removal of cyst Family History Father No problems noted. Mother No problems noted. Sister Breast cancer, Onset Age: 60 Maternal Grandmother Breast cancer Maternal Aunt Breast cancer Paternal Aunt Breast cancer Son No problems noted. Brother Heart attack Family/Other Breast cancer Social History Household Members: Spouse Caregiver staying overnight: No Housing: Condominium Are you a primary career discovery teacher to a significant other at home: No Do you presently have visiting nurse or other home services: No 75 years or older and lives alone: No Alcohol intake: current Alcohol intake frequency: a few times a week Patient Tobacco Use Status: Never used Tobacco e-Cigarette/Vaping Use: Never Used Second Hand Smoke Exposure: Yes service: No Current occupational status: employed Current occupation: accounts payable, babysit Cognitive needs: No Hearing needs: No Vision needs: Yes (glasses) Physical Exam Vital Signs: Last Vital Signs Temp 96.1 F L 06/25/23 11:19 Pulse 66 06/25/23 11:19 BP 178/97 H 06/25/23 11:19 Pulse Ox 94 06/25/23 11:19 Oxygen Delivery Method Room Air 06/25/23 11:19 GI Other: Incisions are Clean, dry, intact. Assessment & Plan Assessment & Plan (1) Status post repair of paraesophageal diaphragmatic hernia: Code(s): Z98.890 - Other specified postprocedural states; Z87.19 - Personal history of other diseases of the digestive system Category: Surgical Plan: Doing well postoperatively. She will continue to follow directions from Dr. Givens. She may return to work. She was instructed to use her abdominal binder with any exercise and activity. (2) Obesity (BMI 30.0-34.9): Code(s): E66.9 - Obesity, unspecified Category: Medical Plan: She will by a [employer] body composition scale She was sent instructions to follow the right BMI lovely. She will return to the office in 6 weeks.
[2023-06-25 11:19] VITALS: BP 178/97; PULSE 66; TEMP 35.6; O2SAT 94
== END 2023-06-25 11:45 | disposition home or self-care (01) ==
PROVIDERS: PCP Internal Medicine; Visit Provider Physician Assistant Surgical
DX: Z98.890 Other specified postprocedural states (principal); Z87.19 Personal history of other diseases of the digestive system; E66.9 Obesity, unspecified
CPT/HCPCS: 99024

== ENCOUNTER → 2023-06-25 10:58 | Outpatient (BNVA) | payer MEDICARE, SELFPAY | PROVIDERS: PCP Internal Medicine; Visit Provider Physician Assistant Surgical | DX: Z48.815 Encounter for surgical aftercare following surgery on the digestive system (principal); E66.9 Obesity, unspecified; Z68.30 Body mass index [BMI] 30.0-30.9, adult; Z87.19 Personal history of other diseases of the digestive system | CPT/HCPCS: 99212 ==

== ENCOUNTER 2023-07-21 07:23 | Outpatient (REF) | payer MEDICARE, SELFPAY ==
--- NOTE | ~2023-07-21 | MM_ITS ---
EXAMINATION: MM SCREENING DIGITAL BREAST TOMOSYNTHESIS, BILATERAL CLINICAL INFORMATION: Screening. Asymptomatic. COMPARISON: Mammography: This study is compared with prior exams dating back to 2018. TECHNIQUE: Digital breast tomosynthesis is performed in both the craniocaudal and mediolateral oblique views along with computer-aided detection (CAD). Synthesized 2D images are generated from the tomosynthesis. FINDINGS: There are scattered areas of fibroglandular density (ACR BI-RADS breast composition Category b). There are no significant masses, abnormal calcifications, or other abnormalities. There is a biopsy tissue marker in the deep third of the upper outer quadrant of the left breast. There is minor architectural change in the upper outer quadrant of the left breast from prior surgery for benign disease. MM/MM tomosynthesis screening BI IMPRESSION: No mammographic evidence of malignancy. ASSESSMENT: BI-RADS BI-RADS 2 - Benign Findings RECOMMENDATION: Routine annual mammography screening. 1 year F/U This examination should not preclude the clinical evaluation of a suspicious palpable abnormality. This patient's information was entered into a reminder system with a target due date for their next mammogram.
== END 2023-07-21 07:24 | disposition home or self-care (01) ==
LOC: HO.MAMMO 07:23
PROVIDERS: PCP Internal Medicine; Visit Provider Internal Medicine
DX: Z12.31 Encounter for screening mammogram for malignant neoplasm of breast (principal)
CPT/HCPCS: 77063; 77067

== ENCOUNTER → 2023-07-21 07:30 | Outpatient (BNV) | payer MEDICARE, SELFPAY | PROVIDERS: PCP Internal Medicine; Visit Provider Radiology Diagnostic Radiology | DX: Z12.31 Encounter for screening mammogram for malignant neoplasm of breast (principal) | CPT/HCPCS: 77063; 77067 ==

== ENCOUNTER 2023-08-02 10:58 | Outpatient (AMB) | payer MEDICARE, SELFPAY ==
--- NOTE | 2023-08-02 10:36 | A.OFFVIS_ITS ---
VS Expanded 08/02/23 10:37 Height 5 ft 2 in Weight 153 lb 9.6 oz BMI 28.1 Intake Visit Reasons: (TV) PO Paraesophageal Hernia 06/17/23 Mountain Bike Guide Required: No Allergies No Known Allergies Allergy (Verified 06/25/23 11:22) Medication List - Last Reconciled 08/02/23 by BINH Cosme calcium citrate-vitamin D3 315 mg-5 mcg (200 unit) 1 tab PO DAILY pantoprazole 40 mg PO DAILY sucralfate 10 mL PO BID HPI Comments Details: Very pleasant 67-year-old female returns to the office today in follow-up. She is 6 weeks status post large paraesophageal hernia repair performed laparoscopically by Dr. Givens on 06/17/2023. Weight today is 153.6 with a BMI of 28.1. She has been communicating with Dr. Givens. She has been checking her blood pressure at home and is no longer requiring any blood pressure medications. She continues taking pantoprazole and sucralfate to heal her stomach. No complaints of pain or reflux Meal plan: 2 scrambled eggs celebrate rebuild, 1 scoop w 8 oz almond milk celebrate bar meal 6 forks protein and 6 forks veg. Drinking 48 oz water Exercise plan: Walking outside daily not tracking calories, approx 15 min Considering joining a gym, She has been instructed to increase to 1 scoop, 2 scoops, 2 scoops. She has no further reflux and is no longer requiring any medications for heartburn. [facility] Medical History (Updated 06/26/23 @ 00:02 by Elsa Tabor) Mesenteroaxial gastric volvulus Annual physical exam Chronic cholecystitis Cholelithiasis Paraesophageal hernia Class 2 severe obesity with body mass index (BMI) of 35 to 39.9 with serious comorbidity Osteoarthritis of left hip GERD (gastroesophageal reflux disease) Essential (primary) hypertension Surgical History Hx of hernia repair History of esophagogastroduodenoscopy (EGD) (04/08/23) Hx of colonoscopy (04/08/23) Hx laparoscopic cholecystectomy (04/29/22) History of lumpectomy of left breast History of esophagogastroduodenoscopy (EGD) History of hysterectomy History of tubal ligation History of removal of cyst Family History Father No problems noted. Mother No problems noted. Sister Breast cancer, Onset Age: 60 Maternal Grandmother Breast cancer Maternal Aunt Breast cancer Paternal Aunt Breast cancer Son No problems noted. Brother Heart attack Family/Other Breast cancer Social History Household Members: Spouse Housing: Condominium Are you a primary hospice care sales consultant to a significant other at home: No Do you presently have visiting nurse or other home services: No Alcohol intake: current Alcohol intake frequency: a few times a week Patient Tobacco Use Status: Never used Tobacco e-Cigarette/Vaping Use: Never Used Second Hand Smoke Exposure: Yes service: No Current occupational status: employed Current occupation: accounts payable, babysit Cognitive needs: No Hearing needs: No Vision needs: Yes (glasses) Telehealth Telehealth Telehealth Platform: Telephone Location of provider rendering services: practice address Location of patient: address on file Patient Identification confirmed using: Name, : Yes Telehealth method: voice only Patient verbally consented to treatment: Yes Patient verbally consented to billing insurance company: Yes Patient informed of any privacy concerns related to visit: Yes Minutes spent on Phone/Video with Pt.: 15 Assessment & Plan Assessment & Plan (1) Status post repair of paraesophageal diaphragmatic hernia: Code(s): Z98.890 - Other specified postprocedural states; Z87.19 - Personal history of other diseases of the digestive system Category: Surgical Plan: Overall, doing very well. Continue to follow the meal plan. Encouraged to join [employer] as she is planning on doing. We will text with any questions or concerns.
[2023-08-02 10:37] VITALS: BMI 28.1
== END 2023-08-02 11:00 | disposition home or self-care (01) ==
LOC: HO.HBS 10:59
PROVIDERS: PCP Internal Medicine; Visit Provider Physician Assistant Surgical
DX: K44.9 Diaphragmatic hernia without obstruction or gangrene (principal); Z48.815 Encounter for surgical aftercare following surgery on the digestive system; Z98.890 Other specified postprocedural states
CPT/HCPCS: 99024

== ENCOUNTER → 2023-08-02 10:58 | Outpatient (BNVA) | payer MEDICARE, SELFPAY | PROVIDERS: PCP Internal Medicine; Visit Provider Physician Assistant Surgical ==

== ENCOUNTER 2023-09-01 08:04 | Outpatient (AMB) | payer MEDICARE, SELFPAY ==
--- NOTE | 2023-09-01 08:40 | A.OFFPC_ITS ---
Vital Signs 09/01/23 08:42 09/01/23 08:48 Height 5 ft 2 in Weight 147 lb 8 oz BMI 27.0 BP 150/90 H 132/70 Blood Pressure Location Lt brachial Lt brachial Position Sitting Sitting Pulse 70 Pulse Source Pulse Oximeter Pulse Oximetry (%) 96 Intake Visit Reasons: follow up Intake Note: Patient is here to follow up on HTN, OA, GERD. Terrapin Fisher Required: No Chlorine Operator: Not Required per policy Accompanied by: Self / Same As Patient Allergies No Known Allergies Allergy (Verified 09/01/23 08:42) Medication List - Last Reconciled 09/01/23 by David Mendoza MD calcium citrate-vitamin D3 315 mg-5 mcg (200 unit) 1 tab PO DAILY Tobacco use date assessed: 09/01/23 Fall risk assessment: No Falls in past year Last assessed Fall Risk: 09/01/23 Dental Screening Dental Screen Date: 09/01/23 Did you have a dental visit in the last 12 months?: Yes Did you have a dental problem in the last 6 months where you did not have access to dental care?: No Was dental information given to patient?: Patient has dentist HPI follow up HPI Details 67-year-old female presents to the offic e to discuss her chronic medical conditions. Patient has been doing well and is at baseline state of health. She would like to stop the PPI and sucralfate as her reflux symptoms are no longer present. Her current weight is 147 lb. Able to function and do all activities of daily living. Recently underwent a colonoscopy and endoscopies. On a regular diet. [facility] Medical History (Updated 09/01/23 @ 09:09 by David Mendoza MD) Mesenteroaxial gastric volvulus Annual physical exam Chronic cholecystitis Cholelithiasis Paraesophageal hernia Class 2 severe obesity with body mass index (BMI) of 35 to 39.9 with serious comorbidity Osteoarthritis of left hip GERD (gastroesophageal reflux disease) Essential (primary) hypertension Surgical History Hx of hernia repair History of esophagogastroduodenoscopy (EGD) (04/08/23) Hx of colonoscopy (04/08/23) Hx laparoscopic cholecystectomy (04/29/22) History of lumpectomy of left breast History of esophagogastroduodenoscopy (EGD) History of hysterectomy History of tubal ligation History of removal of cyst Family History Father No problems noted. Mother No problems noted. Sister Breast cancer, Onset Age: 60 Maternal Grandmother Breast cancer Maternal Aunt Breast cancer Paternal Aunt Breast cancer Son No problems noted. Brother Heart attack Family/Other Breast cancer Social History Household Members: Spouse Caregiver staying overnight: No Housing: Condominium Are you a primary director of career resources to a significant other at home: No Do you presently have visiting nurse or other home services: No 75 years or older and lives alone: No Alcohol intake: current Alcohol intake frequency: a few times a month Patient Tobacco Use Status: Never used Tobacco e-Cigarette/Vaping Use: Never Used Second Hand Smoke Exposure: Yes service: No Current occupational status: employed Current occupation: accounts payable, babysit Cognitive needs: No Hearing needs: No Vision needs: Yes (glasses) Questionnaire PHQ-9 Over the last 2 weeks, how often have you been bothered by any of the following problems? 1. Little interest or pleasure in doing things: not at all 2. Feeling down, depressed, or hopeless: not at all 3. Trouble falling or staying asleep, or sleeping too much: not at all 4. Feeling tired or having little energy: not at all 5. Poor appetite or overeating: not at all 6. Feeling bad about yourself - or that you are a failure or have let yourself or your family down: not at all 7. Trouble concentrating on things, such as reading the newspaper or watching television: not at all 8. Moving or speaking so slowly that other people could have noticed. Or the opposite - being so fidgety or restless that you have been moving around a lot more than usual: not at all 9. Thoughts that you would be better off or of hurting yourself in some way: not at all Total score: 0 Depression Screening Interpretation: Negative Depression Screening Done: Yes Source: Developed by Drs. Eddie Diamond, Tina Wilde, Orlando Churchill and colleagues, with an educational candice from [employer]. Thrive Questionnaire Date Thrive assessed: 06/18/23 Currently or been in a relationship where the following occur: No concerns reported THRIVE Score: 0 LIDYA-7 AMB Questionnaire LIDYA-7 Date LIDYA - 7 assessed: 09/01/23 Feeling nervous, anxious, or on edge: 0 = Not at all Not being able to stop or control worryin = Not at all Worrying too much about different things: 0 = Not at all Trouble relaxin = Not at all Being so restless that it is hard to sit still: 0 = Not at all Becoming easily annoyed or irritable: 0 = Not at all Feeling afraid as if something awful might happen: 0 = Not at all Total LIDYA-7 score (0-4 normal; 5-9 mild; 10-14 moderate; 15-21 severe): 0 Source: Developed by Drs. Eddie Diamond, Tina Wilde, Orlando Churchill and colleagues, with an educational candice from [employer]. Physical exam (Primary Care) Vital Signs: Blood pressure is in range. Tobacco/Smoking Status: Tobacco use Status Tobacco use date assessed 09/03/22 09/03/22 10:15 Patient Tobacco Use Status Never used Tobacco 06/18/23 08:32 e-Cigarette/Vaping Use Never Used 09/03/22 10:15 Depression Screening Interpretation: Negative Thrive Assessment: Date of Thrive Assessment Date Thrive assessed 06/18/23 06/21/23 14:30 Currently or been in a relationship where the following occur: No concerns reported Advance Care Planning discussion: Exists, not on file Date of discussion: 09/01/23 Who was present: Patient Forms completed: Health Care Proxy Const General: cooperative and healthy appearing Nutritional Appearance: well nourished Orientation/consciousness: patient oriented x3 Limitations: no limitations HENMT Head: Yes normal to inspection Eyes General: appearance normal, both eyes and all related structures Neck Neck: Yes normal visual inspection Chest Chest palpation & inspection: normal palpation of entire chest wall Resp Effort & Inspection: normal respiratory effort Neuro General: patient oriented x3 Assessment and Plan Assessment & Plan (1) Essential (primary) hypertension: Code(s): I10 - Essential (primary) hypertension Plan: Blood pressure is well controlled without medications. Blood work has been reviewed. (2) GERD (gastroesophageal reflux disease): Code(s): K21.9 - Gastro-esophageal reflux disease without esophagitis Qualifiers: Esophagitis presence: without esophagitis Qualified Code(s): K21.9 - Gastro-esophageal reflux disease without esophagitis Plan: PPI and sucralfate has been discontinued. Should symptoms recur, I will restart the medication. (3) Class 2 severe obesity with body mass index (BMI) of 35 to 39.9 with serious comorbidity: Code(s): E66.01 - Morbid (severe) obesity due to excess calories Plan: This condition is also resolved. Patient currently weighs 147 lb. Continue healthy diet. (4) Paraesophageal hernia: Code(s): K44.9 - Diaphragmatic hernia without obstruction or gangrene Plan: Condition has resolved after surgery. Orders: Orders Basic Metabolic Panel 6 Months E66.01 - Morbid (severe) obesity due to excess calories, I10 - Essential (primary) hypertension, K21.9 - Gastro-esophageal reflux disease without esophagitis, K44.9 - Diaphragmatic hernia without obstruction or gangrene Lipid Panel 6 Months E66.01 - Morbid (severe) obesity due to excess calories, I10 - Essential (primary) hypertension, K21.9 - Gastro-esophageal reflux disease without esophagitis, K44.9 - Diaphragmatic hernia without obstruction or edmar grene Complete Blood Count no Diff 6 Months E66.01 - Morbid (severe) obesity due to excess calories, I10 - Essential (primary) hypertension, K21.9 - Gastro- esophageal reflux disease without esophagitis, K44.9 - Diaphragmatic hernia without obstruction or gangrene Liver Panel 6 Months E66.01 - Morbid (severe) obesity due to excess calories, I10 - Essential (primary) hypertension, K21.9 - Gastro-esophageal reflux disease without esophagitis, K44.9 - Diaphragmatic hernia without obstruction or gangrene Thyroid Stimulating Hormone 6 Months E66.01 - Morbid (severe) obesity due to excess calories, I10 - Essential (primary) hypertension, K21.9 - Gastro- esophageal reflux disease without esophagitis, K44.9 - Diaphragmatic hernia without obstruction or gangrene UA and rflx microscopic 6 Months E66.01 - Morbid (severe) obesity due to excess calories, I10 - Essential (primary) hypertension, K21.9 - Gastro-esophageal reflux disease without esophagitis, K44.9 - Diaphragmatic hernia without obstruction or gangrene Medications: Discontinued pantoprazole Discontinued Reason: Doctor's Order 40 mg PO DAILY 90 tabs 0RF K21.9 - Gastro-esophageal reflux disease without esophagitis sucralfate Discontinued Reason: Doctor's Order 10 mL PO BID 600 mL 2RF K21.9 - Gastro- esophageal reflux disease without esophagitis Coding Level of Care Code Est Pt Level 4 (32420) Complex EM visit Add On G2211 Diagnoses Essential (primary) hypertension I10 Gastroesophageal reflux disease without esophagitis K21.9 Esophagitis presence: without esophagitis Class 2 severe obesity with body mass index (BMI) of 35 to 39.9 with serious comorbidity E66.01 Paraesophageal hernia K44.9 Additional Codes Vital Signs *Quality* - Advance Care Planning discussion: Exists, not on file ([id number])
[2023-09-01 08:42] VITALS: BP 150/90; PULSE 70; O2SAT 96; BMI 27.0
[2023-09-01 08:48] VITALS: BP 132/70
== END 2023-09-01 09:01 | disposition home or self-care (01) ==
PROVIDERS: PCP Internal Medicine; Visit Provider Internal Medicine
DX: I10 Essential (primary) hypertension (principal); K21.9 Gastro-esophageal reflux disease without esophagitis; E66.01 Morbid (severe) obesity due to excess calories; Z68.27 Body mass index [BMI] 27.0-27.9, adult; K44.9 Diaphragmatic hernia without obstruction or gangrene; Z00.00 Encounter for general adult medical examination without abnormal findings
CPT/HCPCS: 1123F; 99214; G2211

== ENCOUNTER 2023-09-13 13:32 | Outpatient (AMB) | payer MEDICARE, SELFPAY ==
[2023-09-13 12:44] VITALS: BMI 26.5
--- NOTE | 2023-09-13 12:44 | MHC.OFFVISWM ---
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 She is 2.5 months status post large paraesophageal hernia repair performed laparoscopically by Dr. Givens on 06/17/2023. Weight today is 145 with a BMI of 26.5. She has been communicating with Dr. Givens. She has been checking her blood pressure at home and is no longer requiring any blood pressure medications. She continues taking sucralfate to heal her stomach. No complaints of pain or reflux. Taking MVI as well. Meal plan: celebrate rebuild, 1 scoop w 8 oz almond milk, celebrate bar Celebrate bar meal 6 forks protein and 6 forks veg. Drinking 64 oz daily or weekends 2 eggs shake bar meal Drinking 64 oz water Exercise plan: Walking outside daily not tracking calories, approx 25 min [facility] Medical History (Updated 09/01/23 @ 09:09 by David Mendoza MD) Mesenteroaxial gastric volvulus Annual physical exam Chronic cholecystitis Cholelithiasis Paraesophageal hernia Class 2 severe obesity with body mass index (BMI) of 35 to 39.9 with serious comorbidity Osteoarthritis of left hip GERD (gastroesophageal reflux disease) Essential (primary) hypertension Surgical History Hx of hernia repair History of esophagogastroduodenoscopy (EGD) (04/08/23) Hx of colonoscopy (04/08/23) Hx laparoscopic cholecystectomy (04/29/22) History of lumpectomy of left breast History of esophagogastroduodenoscopy (EGD) History of hysterectomy History of tubal ligation History of removal of cyst Family History Father No problems noted. Mother No problems noted. Sister Breast cancer, Onset Age: 60 Maternal Grandmother Breast cancer Maternal Aunt Breast cancer Paternal Aunt Breast cancer Son No problems noted. Brother Heart attack Family/Other Breast cancer Social History Household Members: Spouse Caregiver staying overnight: No Housing: Condominium Are you a primary healthcare consulting manager to a significant other at home: No Do you presently have visiting nurse or other home services: No 75 years or older and lives alone: No Alcohol intake: current Alcohol intake frequency: a few times a month Patient Tobacco Use Status: Never used Tobacco e-Cigarette/Vaping Use: Never Used Second Hand Smoke Exposure: Yes service: No Current occupational status: employed Current occupation: accounts payable, babysit Cognitive needs: No Hearing needs: No Vision needs: Yes (glasses) Telehealth Telehealth Telehealth Platform: Telephone Location of provider rendering services: practice address Location of patient: address on file Patient Identification confirmed using: Name, : Yes Telehealth method: voice only Patient verbally consented to treatment: Yes Patient verbally consented to billing insurance company: Yes Patient informed of any privacy concerns related to visit: Yes Minutes spent on Phone/Video with Pt.: 15 Assessment & Plan Assessment & Plan (1) Status post repair of paraesophageal diaphragmatic hernia: Code(s): Z98.890 - Other specified postprocedural states; Z87.19 - Personal history of other diseases of the digestive system Category: Surgical Plan: Overall, she is doing quite well. I have encouraged her to track her calories using the [employer] lovely while walking outside. She will continue her current meal plan. Overall she is very satisfied with the results of her progress. We will have her return to the office in 6 weeks, sooner should she have any questions or concerns. Additionally, encouraged to text weekly
== END 2023-09-13 13:56 | disposition home or self-care (01) ==
LOC: HO.HBS 13:32
PROVIDERS: PCP Internal Medicine; Visit Provider Physician Assistant Surgical
DX: Z98.890 Other specified postprocedural states (principal); Z87.19 Personal history of other diseases of the digestive system
CPT/HCPCS: 99024

== ENCOUNTER → 2023-09-13 13:32 | Outpatient (BNVA) | payer MEDICARE, SELFPAY | PROVIDERS: PCP Internal Medicine; Visit Provider Physician Assistant Surgical ==

== ENCOUNTER 2023-10-25 09:37 | Outpatient (AMB) | payer MEDICARE, SELFPAY ==
[2023-10-25 09:23] VITALS: BMI 24.8
--- NOTE | 2023-10-25 09:23 | A.OFFVIS_ITS ---
VS Expanded 10/25/23 09:23 Height 5 ft 2 in Weight 135 lb 6 oz BMI 24.8 Intake Visit Reasons: (TV) PO Paraesophageal Hernia 06/17/23 Allergies No Known Allergies Allergy (Verified 09/01/23 08:42) HPI Comments Details: Very pleasant 67-year-old female returns to the office today in follow-up. She is 4 months status post large paraesophageal hernia repair performed laparoscopically by Dr. Givens on 06/17/2023. Weight today is 135.6 with a BMI of 24.8. She has been communicating with Dr. Givens. She has been checking her blood pressure at home and is no longer requiring any blood pressure medications. No complaints of pain or reflux. Taking MVI as well. Fells strong and healthy. No complaints. Meal plan: celebrate rebuild, 1 scoop w 8 oz almond milk, celebrate bar Celebrate bar meal 6 forks protein and 6 forks veg. Drinking 64 oz daily or weekends 2 eggs shake bar meal Drinking 64 oz water Exercise plan: Walking outside daily not tracking calories, approx 1 hr, 120 corrina PFSH Medical History Mesenteroaxial gastric volvulus Annual physical exam Chronic cholecystitis Cholelithiasis Paraesophageal hernia Class 2 severe obesity with body mass index (BMI) of 35 to 39.9 with serious comorbidity Osteoarthritis of left hip GERD (gastroesophageal reflux disease) Essential (primary) hypertension Surgical History Hx of hernia repair History of esophagogastroduodenoscopy (EGD) (04/08/23) Hx of colonoscopy (04/08/23) Hx laparoscopic cholecystectomy (04/29/22) History of lumpectomy of left breast History of esophagogastroduodenoscopy (EGD) History of hysterectomy History of tubal ligation History of removal of cyst Family History Father No problems noted. Mother No problems noted. Sister Breast cancer, Onset Age: 60 Maternal Grandmother Breast cancer Maternal Aunt Breast cancer Paternal Aunt Breast cancer Son No problems noted. Brother Heart attack Family/Other Breast cancer Social History Household Members: Spouse Caregiver staying overnight: No Housing: Condominium Are you a primary medical care evaluation specialist to a significant other at home: No Do you presently have visiting nurse or other home services: No 75 years or older and lives alone: No Alcohol intake: current Alcohol intake frequency: a few times a month Patient Tobacco Use Status: Never used Tobacco e-Cigarette/Vaping Use: Never Used Second Hand Smoke Exposure: Yes service: No Current occupational status: employed Current occupation: accounts payable, babysit Cognitive needs: No Hearing needs: No Vision needs: Yes (glasses) Telehealth Telehealth Telehealth Platform: Telephone Location of provider rendering services: practice address Location of patient: address on file Patient Identification confirmed using: Name, : Yes Telehealth method: voice only Patient verbally consented to treatment: Yes Patient verbally consented to billing insurance company: Yes Patient informed of any privacy concerns related to visit: Yes Minutes spent on Phone/Video with Pt.: 15 Assessment & Plan Assessment & Plan (1) Status post repair of paraesophageal diaphragmatic hernia: Code(s): Z98.890 - Other specified postprocedural states; Z87.19 - Personal history of other diseases of the digestive system Category: Surgical Plan: Doing very well. Very satisfied with her meal plan. She is feeling excellent. No complaints of reflux. We will have her return to the office in approximately 3 months, sooner should she have any questions or concerns.
== END 2023-10-25 09:43 | disposition home or self-care (01) ==
LOC: HO.HBS 09:37
PROVIDERS: PCP Internal Medicine; Visit Provider Physician Assistant Surgical
DX: K44.9 Diaphragmatic hernia without obstruction or gangrene (principal); Z87.19 Personal history of other diseases of the digestive system
CPT/HCPCS: 98967

== ENCOUNTER → 2023-10-25 09:37 | Outpatient (BNVA) | payer MEDICARE, SELFPAY | PROVIDERS: PCP Internal Medicine; Visit Provider Physician Assistant Surgical | DX: Z98.890 Other specified postprocedural states (principal); Z87.19 Personal history of other diseases of the digestive system ==

== ENCOUNTER 2023-11-03 11:51 | Outpatient (AMB) | payer MEDICARE, SELFPAY ==
[2023-11-03 12:06] VITALS: BP 162/98; PULSE 62; O2SAT 100; BMI 24.8
--- NOTE | 2023-11-03 12:06 | A.OFFVIS_ITS ---
Vital Signs 11/03/23 12:06 Height 5 ft 2 in Weight 135 lb 5.821 oz BMI 24.8 BP 162/98 H Blood Pressure Location Lt brachial Position Sitting Pulse 62 Pulse Source Pulse Oximeter Pulse Oximetry (%) 100 Oxygen Delivery Method Room Air Intake Visit Reasons: 6 month follow up Intake Note: Jeanna presents in office today for a scheduled 6 mos FUV. CC: Pt is also here to discuss their recent BA FL. Pt reports that they have been doing better since their last visit. Pt denies any current sx or concerns as of today. Pt does report needing a refill of dulcolax. Life Insurance Sales Agent Required: No Allergies No Known Allergies Allergy (Verified 11/03/23 12:07) HPI HPI 6 month follow up: Details: LAST VISIT Paraesophageal hernia GERD (gastroesophageal reflux disease) History of diverticulitis Postprandial abdominal bloating Plan Patient will follow-up in the office in July. Proceed with surgery with Dr. Givens in June. Reflux precautions with PPI and H2 ally on board. Patient will call the office if she will have any GI concerning symptoms. She is agreeable to this plan and verbalizes understanding of instructions. She was given the opportunity to ask questions and all questions answered. ? Thank you for allowing me to participate in her care Medications Discontinued omeprazole Discontinued Reason: Doctor's Order 20 mg PO DAILY 90 caps 1RF TODAY'S VISIT: Patient is here today for follow-up. Patient reports that she has been doing very well. Status post paraesophageal hernia repair on June [address] Givens. Patient states that she has been feeling very well. Follows with bariatric surgeons and has been doing well. Patient denies any GI concerning symptoms. Patient reports occasional abdominal bloating depending on what she eats. Patient follows diet given to her by bariatric surgeon's. [facility] Medical History Mesenteroaxial gastric volvulus Annual physical exam Chronic cholecystitis Cholelithiasis Paraesophageal hernia Class 2 severe obesity with body mass index (BMI) of 35 to 39.9 with serious comorbidity Osteoarthritis of left hip GERD (gastroesophageal reflux disease) Essential (primary) hypertension Surgical History Hx of hernia repair History of esophagogastroduodenoscopy (EGD) (04/08/23) Hx of colonoscopy (04/08/23) Hx laparoscopic cholecystectomy (04/29/22) History of lumpectomy of left breast History of esophagogastroduodenoscopy (EGD) History of hysterectomy History of tubal ligation History of removal of cyst Family History Father No problems noted. Mother No problems noted. Sister Breast cancer, Onset Age: 60 Maternal Grandmother Breast cancer Maternal Aunt Breast cancer Paternal Aunt Breast cancer Son No problems noted. Brother Heart attack Family/Other Breast cancer Social History Household Members: Spouse Caregiver staying overnight: No [facility] Are you a primary child care associate teacher to a significant other at home: No Do you presently have visiting nurse or other home services: No 75 years or older and lives alone: No Alcohol intake: current Alcohol intake frequency: a few times a month Patient Tobacco Use Status: Never used Tobacco e-Cigarette/Vaping Use: Never Used Second Hand Smoke Exposure: Yes service: No Current occupational status: employed Current occupation: accounts payable, babysit Cognitive needs: No Hearing needs: No Vision needs: Yes (glasses) Review of Systems Const Denies weight gain and Denies weight loss ENT Reports no additional complaints, Denies dysphagia and Denies odynophagia Card Reports no additional complaints Resp Reports no additional complaints GI Denies abdominal pain, Denies belching, Denies melena, Denies bloating, Denies change in bowel habits, Denies dysphagia, Denies excessive flatus, Denies dyspepsia, Denies heartburn, Denies diarrhea, Denies loose stools, Denies nausea, Denies odynophagia and Denies vomiting Musc Reports no additional complaints Neuro Reports no additional complaints Psych Reports no additional complaints Endo Reports no additional complaints Physical Exam Vital Signs: Last Vital Signs Pulse 62 11/03/23 12:06 BP 162/98 H 11/03/23 12:06 Pulse Ox 100 11/03/23 12:06 Oxygen Delivery Method Room Air 11/03/23 12:06 BMI result Body Mass Index 24.8 Const General: healthy appearing, no acute distress and well developed Nutritional Appearance: obese Orientation/consciousness: patient oriented x3 Resp Effort & Inspection: normal respiratory effort, able to speak in complete sen tences, no tracheal deviation and symmetric chest movement Auscultation: clear to auscultation bilaterally Cardio Rate: regular rate GI Inspection: Yes normal to inspection, No distended and Yes obesity Palpation (GI): Soft to palpation, not firm, nontender and No hepatosplenomegaly present Auscultation: normal bowel sounds General: Yes no CVA tenderness Back/Spine/Pelvis Back: no CVA tenderness Skin General skin exam: elasticity normal, turgor normal and dry skin Neuro General: patient oriented x3 Psych Appearance: grossly normal Mental Status: mental status grossly normal Assessment & Plan Assessment & Plan (1) Status post repair of paraesophageal diaphragmatic hernia: Code(s): Z98.890 - Other specified postprocedural states; Z87.19 - Personal history of other diseases of the digestive system Category: Medical (2) GERD (gastroesophageal reflux disease): Code(s): K21.9 - Gastro-esophageal reflux disease without esophagitis Category: Medical Qualifiers: Esophagitis presence: without esophagitis Qualified Code(s): K21.9 - Gastro-esophageal reflux disease without esophagitis (3) Postprandial abdominal bloating: Code(s): R14.0 - Abdominal distension (gaseous) Plan May take simethicone on as needed basis. Can take Dulcolax if no bowel movement in 2-3 days. Increase fluid intake and activity to promote better bowel motility. Patient will follow-up in the office on as needed basis. She is agreeable to this plan and verbalizes understanding of instructions. She was given the opportunity to ask questions and all questions answered. Thank you for allowing me to participate in her care Medications: New simethicone 125 mg PO BID-QID PRN 120 caps 3RF abdominal distention bisacodyl (Dulcolax (bisacodyl)) 5 mg PO BEDTIME 180 tabs 2RF Coding Level of Care Code Est Pt Level 3 (49334) Diagnoses Status post repair of paraesophageal diaphragmatic hernia Z98.890; Z87.19 Gastroesophageal reflux disease without esophagitis K21.9 Esophagitis presence: without esophagitis Postprandial abdominal bloating R14.0 Time Spent (min) 25 Comment 15 minutes spent with patient and additional 10 minutes spent reviewing her records
== END 2023-11-03 13:09 | disposition home or self-care (01) ==
PROVIDERS: PCP Internal Medicine; Visit Provider Nurse Practitioner Family
DX: Z98.890 Other specified postprocedural states (principal); Z87.19 Personal history of other diseases of the digestive system; K21.9 Gastro-esophageal reflux disease without esophagitis; R14.0 Abdominal distension (gaseous)
CPT/HCPCS: 99213

== ENCOUNTER → 2023-11-03 11:51 | Outpatient (BNVA) | payer MEDICARE, SELFPAY | PROVIDERS: PCP Internal Medicine; Visit Provider Nurse Practitioner Family | DX: K21.9 Gastro-esophageal reflux disease without esophagitis (principal); R14.0 Abdominal distension (gaseous); Z87.19 Personal history of other diseases of the digestive system; Z98.890 Other specified postprocedural states | CPT/HCPCS: 99212 ==

== ENCOUNTER 2024-03-22 08:57 | Outpatient (REF) | payer MEDICARE, SELFPAY ==
[2024-03-22 10:23] LABS: Hematocrit 43.2 % (37.0-47.0); Hemoglobin 14.8 g/dl (12.0-16.0); Mean Corpuscular HGB Conc 34.3 g/dl (31.0-35.0); Mean Corpuscular Hemoglobin 30.4 pg (27.0-33.0); Mean Corpuscular Volume 88.7 fL (80.0-98.0); Mean Platelet Volume 9.3 fL (9.4-12.3); Platelet Count 235 X10*3/uL (160-400); Red Blood Count 4.87 X10*6/uL (4.20-5.50); Red Cell Distribution Width 12.7 % (11.0-16.0); White Blood Count 5.4 X10*3/uL (4.8-10.8)
--- OUTSIDE RECORDS SUMMARY | 2024-03-22 10:35 | XMS_ITS | Clinical Summary ---
Author Organization [facility] [employer] Address [address] [place] [address] Care Team Providers Care Pickle Pumper Name Role Phone Pcp, No Primary Care Provider [phone] Immunizations Name Administration Dates Next Due Flublok Trivalent Prefilled Syringe (18+ years) 12/08/2020 Social History Tobacco Use Types Packs/Day Years Used Date Smoking Tobacco: Never Assessed Comments Unknown Sex and Gender Information Value Date Recorded Sex Assigned at Not on file Legal Sex Female 2:06 PM EDT Gender Identity Not on file Sexual Orientation Not on file Plan of Treatment Health Maintenance Due Date Last Done Comments Colorectal Cancer: COLONOSCO PY Screening every 10 yrs (or Modifier) 1956 Depression: Screening Annual ly using PHQ-2/9 in Adults 18 yrs or above (or HM Modifier)([facility]) 1974 Hepatitis C Virus Infection in Adolescents and Adults: Screening (or Modifier) ([facility]) 1974 SDOH Screening Reminder: Rossy baker for all adults ([facility]) 1974 Tobacco Smoking Cessation: i n Adults excluding Women: Behavioral and Pharmacotherapy Interventions ([facility]) 1974 DTaP/Tdap/Td Vaccines ([facility]) (1 - Tdap) 11/26/1975 Colorectal Cancer Screening 45 -75 Yrs (or HM Modifier) 2001 Colorectal Cancer: FLEXIBLE SIGMOIDOSCOPY Screening every 5 yrs 2001 Colorectal Cancer: Fecal Imm unochemical Test (FIT) Annually [facility] 2001 Colorectal Cancer: High-sens itivity gFOBT Screening Annually [facility] 2001 Colorectal Cancer: Stool Col oguard Screening every 3 yrs 2001 Colorectal Cancer:CT Colonog ernestina Screening every 5 yrs 2001 Lipid Screening: Every 5 yrs for Women aged 45+ (or HM Modifier) ([facility]) 2002 Breast Cancer: Screening Rossy ually age 50-74 yrs (or HM Modifier)([facility]) 2006 Zoster/Shingles Vaccine Seri es Screening: Adults aged 18+ yrs (or HM Modifiers)([facility]) (1 of 2) 2006 Osteoporosis Screening to Pr event Fractures: Women aged 65 years+ ([facility]) 2021 Pneumococcal Vaccination Scr eening: Patients 65+ yrs of age ([facility]) (1 of 1 - PCV) 2021 Flu Vaccination: Ages 65+: Y early High Dose Recommended (or Modifier)([facility]) 09/16/2023 12/08/2020 COVID-19 Vaccine Screening: Initial Series and Booster Status ([facility]) (2023- season) 2023 06/12/2020, 05/15/2020 RSV Vaccines (1 - 1-dose 75+ series) 11/26/2031 Medical Devices Not on file Insurance [facility] Care Teams Pickle Pumper Relationship Specialty Start Date End Date Pcp, No PCP - General Family Medicine 12/08/20
--- OUTSIDE RECORDS SUMMARY | 2024-03-22 10:35 | XMS_ITS | Clinical Summary ---
Author Organization [facility] Address [address] [place] [address] Care Team Providers Care Casing In Line Setter Name Role Phone Unavailable Primary Care Provider [...] Drug Screen 02/15/2023 Depression Annual Screen 02/15/2023 [id number] ( season) 2023 021, 05/15/2020 Imm-Influenza (#1) 2023 12/02/2019, 1 03/04/2018, 04/03/2017 Imm-DTaP/Tdap/Td (2 - Td or Tdap) 01/02/2029 019 Insurance HNE ([facility]) Member Subscriber Plan / Payer (Ef fective 2020-Present) Name:Jeanna Loving Relation to Subscriber:Self Name:Jeanna Loving Payer ID:[id number] Type:Indemnity Address: [address] [place] [address]
[2024-03-22 11:04] LABS: Alanine Aminotransferase 23 U/L (0-31); Albumin Level 4.2 g/dL (3.5-5.0); Alkaline Phosphatase 151 U/L (39-117); Anion Gap 10 (12-20); Aspartate Amino Transferase 25 U/L (5-31); Bilirubin Direct 0.3 mg/dL (0.0-0.5); Bilirubin Total 0.6 mg/dL (0.0-1.0); Blood Urea Nitrogen 11 mg/dL (9-16); Calcium 9.3 mg/dL (8.4-10.2); Carbon Dioxide 30 mmol/L (22-29); Chloride 105 mmol/L (96-108); Cholesterol 186 mg/dL (<200); Estimated Glomerular Filt Rate > 60; Glucose Random 84 mg/dL (60-115); HDL Cholesterol 78 mg/dL (>40); LDL Cholesterol Calculated 98 mg/dL (<100); Potassium 3.6 mmol/L (3.3-5.1); Sodium 141 mmol/L (135-145); Total Protein 7.5 g/dL (6.5-8.0); Triglycerides 54 mg/dL (<150)
[2024-03-22 11:20] LABS: Appearance Urine Clear; Color Urine Yellow; Glucose Urine UA Negative (Negative); Leukocyte Esterase Urine Trace (Negative); Nitrite Urine Negative (Negative); PH 5.5 (5.0-9.0); UMIC TRIGGER UA YES; Urine Blood Negative (Negative); Urine Ketones Negative (Negative); Urine Protein Negative (Neg-Trace)
[2024-03-22 11:23] LABS: Thyroid Stimulating Hormone 2.13 uIU/mL (0.32-4.0)
[2024-03-22 11:27] LABS: Bacteria Urine None Seen (None Seen); Hyaline Casts Urine 0-2 /LPF (0-2); RBC Urine 0-2 /HPF (0-2); Squamous Epithelial Cell Urine 0-2 /HPF (0-2); WBC Urine 0-5 /HPF (0-5)
== END 2024-03-22 08:58 | disposition home or self-care (01) ==
LOC: HO.LAB 08:57
PROVIDERS: Absent Provider Internal Medicine; PCP Internal Medicine
DX: K21.9 Gastro-esophageal reflux disease without esophagitis (principal); I10 Essential (primary) hypertension; M16.12 Unilateral primary osteoarthritis, left hip; E66.01 Morbid (severe) obesity due to excess calories; Z87.19 Personal history of other diseases of the digestive system; Z79.899 Other long term (current) drug therapy
CPT/HCPCS: 36415; 80048; 80061; 80076; 81001; 84443; 85027; 96127; 99212

== ENCOUNTER 2024-03-22 08:57 | Outpatient (AMB) | payer MEDICARE, SELFPAY ==
--- NOTE | 2024-03-22 09:04 | A.OFFPC_ITS ---
Vital Signs 03/22/24 09:06 Height 5 ft 2 in Weight 133 lb 8 oz BMI 24.4 BP 130/76 Blood Pressure Location Lt brachial Position Sitting Pulse 67 Pulse Source Pulse Oximeter Temp 97.3 F Temp Source Skin Pulse Oximetry (%) 98 Oxygen Delivery Method Room Air Intake Visit Reasons: follow up Intake Note: Patient is here to follow up on HTN. 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: Not Required per policy Accompanied by: Self / Same As Patient Allergies No Known Allergies Allergy (Verified 03/23/24 20:50) Medication List - Last Reconciled 03/22/24 by FLAQUITA Alba bisacodyl (Dulcolax (bisacodyl)) 5 mg PO BEDTIME calcium citrate-vitamin D3 315 mg-5 mcg (200 unit) 1 tab PO DAILY famotidine 20 mg PO BEDTIME multivitamin with minerals (Multiple Vitamin-Minerals tablet) 1 tab PO DAILY simethicone 125 mg PO BID-QID PRN Tobacco use date assessed: 03/22/24 Fall risk assessment: No Falls in past year Last assessed Fall Risk: 03/22/24 Dental Screening Dental Screen Date: 03/22/24 Did you have a dental visit in the last 12 months?: Yes Did you have a dental problem in the last 6 months where you did not have access to dental care?: No Was dental information given to patient?: Patient has dentist HPI follow up HPI Details The patient is a 68-year-old female with significant past medical history of status post repair of paraesophageal diaphragmatic hernia, paraesophageal hernia, osteoarthritis of the left hip, GERD, essential hypertension Patient is presenting follow up appointment for her chronic conditions She denies shortness of breath, chest pain, dizziness, heart palpitation, abdominal pain or change in bowel habits She denies urinary symptoms. The patient reports that she has been feeling much better after getting her abdominal surgery The patient was not able to get blood work done prior to appointment Reports that she has not eat or drink anything yet so far and we will go get her blood work done after appointment Patient denies any concerns today. She reports that she no longer needs her blood pressure medication and has not been taking it PFSH Medical History Mesenteroaxial gastric volvulus Annual physical exam Chronic cholecystitis Cholelithiasis Paraesophageal hernia Class 2 severe obesity with body mass index (BMI) of 35 to 39.9 with serious comorbidity Osteoarthritis of left hip GERD (gastroesophageal reflux disease) Essential (primary) hypertension Surgical History Hx of hernia repair History of esophagogastroduodenoscopy (EGD) (04/08/23) Hx of colonoscopy (04/08/23) Hx laparoscopic cholecystectomy (04/29/22) History of lumpectomy of left breast History of esophagogastroduodenoscopy (EGD) History of hysterectomy History of tubal ligation History of removal of cyst Family History Father No problems noted. Mother No problems noted. Sister Breast cancer, Onset Age: 60 Maternal Grandmother Breast cancer Maternal Aunt Breast cancer Paternal Aunt Breast cancer Son No problems noted. Brother Heart attack Family/Other Breast cancer Social History Household Members: Spouse Caregiver staying overnight: No [facility] Are you a primary palliative care specialist to a significant other at home: No Do you presently have visiting nurse or other home services: No 75 years or older and lives alone: No Alcohol intake: current Alcohol intake frequency: a few times a month Patient Tobacco Use Status: Never used Tobacco e-Cigarette/Vaping Use: Never Used Second Hand Smoke Exposure: Yes service: No Current occupational status: employed Current occupation: accounts payable, babysit Cognitive needs: No Hearing needs: No Vision needs: Yes (glasses) Questionnaire PHQ-9 Over the last 2 weeks, how often have you been bothered by any of the following problems? 1. Little interest or pleasure in doing things: not at all 2. Feeling down, depressed, or hopeless: not at all 3. Trouble falling or staying asleep, or sleeping too much: not at all 4. Feeling tired or having little energy: not at all 5. Poor appetite or overeating: not at all 6. Feeling bad about yourself - or that you are a failure or have let yourself or your family down: not at all 7. Trouble concentrating on things, such as reading the newspaper or watching television: not at all 8. Moving or speaking so slowly that other people could have noticed. Or the opposite - being so fidgety or restless that you have been moving around a lot more than usual: not at all 9. Thoughts that you would be better off or of hurting yourself in some way: not at all Total score: 0 Depression Screening Interpretation: Negative Depression Screening Done: Yes 63412 - PHQ-9 Billing: Yes Source: Developed by Drs. Eddie Diamond, Tina Wilde, Orlando Churchill and colleagues, with an educational candice from [employer]. Thrive Questionnaire Date Thrive assessed: 03/22/24 I am a: Patient What is your living situation today?: I have a steady place to live Within the past 12 months, did the food you bought not last and you didn't have the money to get more?: Never true Within the past 12 months, did you worry whether your food would run out before you got money to buy more?: Never true Do you have trouble paying for medicines?: No Do you have trouble getting transportation to medical appointments?: No Do you have trouble paying your heating and electricity bill?: No Do you have trouble taking care of your child, family member or friend?: No Do you have trouble with day-to-day activities such as bathing, preparing meals, shopping, managing finances, etc.?: No Are you currently unemployed and looking for a job?: No Are you interested in more education?: No Please select the resources that you would like help with: None Currently or been in a relationship where the following occur: No concerns reported THRIVE Score: 0 AUDIT C Alcohol Use Questionnaire (AUDIT-C) 1. How often do you have a drink containing alcohol?: Monthly or less 2. How many drinks containing alcohol do you have on a typical day when you are drinking?: 1 or 2 3. How often do you have six or more drinks on one occasion?: Never Total Score: 1 LIDYA-7 AMB Questionnaire LIDYA-7 Date LIDYA - 7 assessed: 03/22/24 Feeling nervous, anxious, or on edge: 0 = Not at all Not being able to stop or control worryin = Not at all Worrying too much about different things: 0 = Not at all Trouble relaxin = Not at all Being so restless that it is hard to sit still: 0 = Not at all Becoming easily annoyed or irritable: 0 = Not at all Feeling afraid as if something awful might happen: 0 = Not at all Total LIDYA-7 score (0-4 normal; 5-9 mild; 10-14 moderate; 15-21 severe): 0 Source: Developed by Drs. Eddie Diamond, Tina Wilde, Orlando Churchill and colleagues, with an educational candice from [employer]. LIDYA-7 Assessment Billing LIDYA-7 Assessment Tool: LIDYA-7 Assessment 22852 Review of Systems Const Details: Denies chills, Denies fatigue, Denies fever(s), Denies headache(s) and Denies weakness HEENT Denies change in vision, Denies dizziness, Denies headache(s), Denies hearing loss, Denies nasal congestion, Denies sinus pain, Denies sinus pressure and Denies sore throat Card Denies chest pain, Denies lightheadedness, Denies dyspnea and Denies other (palpitations) Resp Denies cough, Denies dyspnea and Denies wheezing GI Denies abdominal pain, Denies melena, Denies hematochezia, Denies change in bowel habits, Denies dyspepsia and Denies nausea Denies hematuria and Denies dysuria Musc Denies abnormal gait, Denies myalgias, Denies arthralgias, Denies numbness and Denies tingling Skin/Breast Denies rash, Denies unusual bruising and Denies wounds Neuro Denies abnormal gait, Denies dizziness, Denies headache(s), Denies memory loss, Denies numbness, Denies Sensory deficit (Neuro), Denies tingling and Denies weakness Psych Denies anxiety, Denies depression and Denies memory loss Endo Denies cold intolerance, Denies fatigue, Denies heat intolerance, Denies polydipsia and Denies polyuria Anshul/Lymph Denies easy bleeding and Denies easy bruising Aller/Immun Denies wheezing Physical exam (Primary Care) Vital Signs: Last Vital Signs Temp 97.3 F 03/22/24 09:06 Pulse 67 03/22/24 09:06 BP 130/76 03/22/24 09:06 Pulse Ox 98 03/22/24 09:06 Oxygen Delivery Method Room Air 02/05/25 09:06 BMI result Body Mass Index 24.4 Tobacco/Smoking Status: Tobacco use Status Tobacco use date assessed 03/22/24 03/22/24 09:13 Patient Tobacco Use Status Never used Tobacco 03/22/24 09:13 e-Cigarette/Vaping Use Never Used 03/22/24 09:13 PHQ-9: PHQ-9 Score PHQ-9: Total score 0 03/22/24 09:36 Depression Screening Interpretation: Negative Thrive Assessment: Date of Thrive Assessment Date Thrive assessed 03/22/24 03/22/24 09:13 Currently or been in a relationship where the following occur: No concerns reported Const Other: General: no acute distress, well developed, alert and awake Nutritional Appearance: well nourished Orientation/consciousness: patient oriented x3 HENMT Head: Yes normocephalic and Yes atraumatic Ears: hearing grossly normal bilaterally and TM's normal bilaterally General nose exam: Normal external nose present and Normal nares present Mouth: Normal oral and palatal mucosa present and moist mucous membranes Eyes Pupils: Equal, round and reactive pupils present and Pupil accommodation reflex normal EOM: EOMs intact bilaterally Neck Neck: Yes normal visual inspection, Yes no lymphadenopathy and Yes trachea midline Thyroid: Thyroid normal Chest Chest palpation & inspection: normal inspection of the chest Resp Effort & Inspection: normal respiratory effort Auscultation: clear to auscultation bilaterally Cardio Rate: regular rate Rhythm: regular rhythm Heart sounds: S1 normal heart sound present, S2 normal heart sound present, no g allops, no murmurs and no rubs GI Palpation (GI): abdomen soft and nontender to palpation Auscultation: normal bowel sounds General: Yes no CVA tenderness Back/Spine/Pelvis Back: no CVA tenderness Cervical Spine: cervical ROM normal and No Cervical spine tenderness Thoracic/Lumbar Spine:no lumbar tenderness Skin General: warm and dry. Normal skin color. Normal skin turgor Lesions: no lesions Nails: normal Neuro General: patient oriented x3, gait normal Cranial nerves: Yes Equal, round and reactive pupils present Cognition (Neuro): normal cognition Gait exam (Neuro): Normal gait present Extrem General: Yes normal to inspection, No edema and No calf tenderness Psych Appearance: grossly normal Affect: normal affect Attitude: cooperative Thought process: Normal thought process present Results Reviewed Results Reviewed: Laboratory Tests 03/22/24 03/22/24 09:55 09:59 WBC 5.4 RBC 4.87 Hgb 14.8 Hct 43.2 Sodium 141 Potassium 3.6 Chloride 105 Carbon Dioxide 30 H Anion Gap 10 L BUN 11 Creatinine 0.58 Estimated GFR > 60 Random Glucose 84 AST 25 ALT 23 Alkaline Phosphatase 151 H Triglycerides 54 Cholesterol 186 LDL Cholesterol, Calc 98 HDL Cholesterol 78 TSH 2.13 Urine Color Yellow Urine Appearance Clear Urine pH 5.5 Ur Specific [place] 1.020 Urine Protein Negative Urine Glucose (UA) Negative Urine Ketones Negative Urine Blood Negative Urine Nitrite Negative Ur Leukocyte Esterase Trace H Coding Level of Care Code Est Pt Level 4 (52446) Diagnoses Status post repair of paraesophageal diaphragmatic hernia Z98.890; Z87.19 Paraesophageal hernia K44.9 Gastroesophageal reflux disease without esophagitis K21.9 Esophagitis presence: without esophagitis Essential (primary) hypertension I10 Additional Codes PHQ-9 - 69974 - PHQ-9 Billing: Yes ([id number]) LIDYA-7 Assessment Billing - LIDYA-7 Assessment Tool: LIDYA-7 Assessment 82078 ([id number]) Time Spent (min) 35 Assessment & Plan Assessment & Plan (1) Status post repair of paraesophageal diaphragmatic hernia: Code(s): Z98.890 - Other specified postprocedural states; Z87.19 - Personal history of other diseases of the digestive system Category: Surgical Plan: paraesophageal hernia repair performed laparoscopically by Dr. Givens on 06/17/2023. Reports that she has been feeling much better follow up with bariatric surgery as scheduled (2) Paraesophageal hernia: Code(s): K44.9 - Diaphragmatic hernia without obstruction or gangrene Category: Medical Plan: resolved. S/p repair of paraesophageal diaphragmatic hernia (3) GERD (gastroesophageal reflux disease): Code(s): K21.9 - Gastro-esophageal reflux disease without esophagitis Category: Medical Qualifiers: Esophagitis presence: without esophagitis Qualified Code(s): K21.9 - Gastro-esophageal reflux disease without esophagitis Plan: reinforced dietary restrictions continue famotidine 20mg at bedtime, simethicone 125 mg BID-QID prn (4) Essential (primary) hypertension: Code(s): I10 - Essential (primary) hypertension Category: Medical Plan: bp 130/76 in office. patient reports that she checks her blood pressure frequently and she has not been taking the pressure medication Reinforced low-sodium diet Plan Patient to follow up in six-month, blood work ordered for six-month follow up Orders: Orders Vitamin D 25-OH Total 6 Months I10 - Essential (primary) hypertension, K21.9 - Gastro-esophageal reflux disease without esophagitis, K44.9 - Diaphragmatic hernia without obstruction or gangrene, M16.12 - Unilateral primary osteoarthritis, left hip, Z87.19 - Personal history of other diseases of the digestive system, Z98.890 - Other specified postprocedural states Complete Blood Count Auto Diff 6 Months I10 - Essential (primary) hypertension, K21.9 - Gastro-esophageal reflux disease without esophagitis, K44.9 - Diaphragmatic hernia without obstruction or gangrene, M16.12 - Unilateral primary osteoarthritis, left hip, Z87.19 - Personal history of other diseases of the digestive system, Z98.890 - Other specified postprocedural states Comprehensive [place]. Panel Fast 6 Months I10 - Essential (primary) hypertension, K21.9 - Gastro-esophageal reflux disease without esophagitis, K44.9 - Diaphragmatic hernia without obstruction or gangrene, M16.12 - Unilateral primary osteoarthritis, left hip, Z87.19 - Personal history of other diseases of the digestive system, Z98.890 - Other specified postprocedural states Glucose Fasting 6 Months I10 - Essential (primary) hypertension, K21.9 - Gastro-esophageal reflux disease without esophagitis, K44.9 - Diaphragmatic hernia without obstruction or gangrene, M16.12 - Unilateral primary osteoarthritis, left hip, Z87.19 - Personal history of other diseases of the digestive system, Z98.890 - Other specified postprocedural states Lipid Panel 6 Months I10 - Essential (primary) hypertension, K21.9 - Gastro- esophageal reflux disease without esophagitis, K44.9 - Diaphragmatic hernia without obstruction or gangrene, M16.12 - Unilateral primary osteoarthritis, left hip, Z87.19 - Personal history of other diseases of the digestive system, Z98.890 - Other specified postprocedural states TSH reflex Free T4 6 Months I10 - Essential (primary) hypertension, K21.9 - Gastro-esophageal reflux disease without esophagitis, K44.9 - Diaphragmatic hernia without obstruction or gangrene, M16.12 - Unilateral primary osteoarthritis, left hip, Z87.19 - Personal history of other diseases of the digestive system, Z98.890 - Other specified postprocedural states UA CC w/rflx Micro + Cult 6 Months I10 - Essential (primary) hypertension, K21.9 - Gastro-esophageal reflux disease without esophagitis, K44.9 - Diaphragmatic hernia without obstruction or gangrene, M16.12 - Unilateral primary osteoarthritis, left hip, Z87.19 - Personal history of other diseases of the digestive system, Z98.890 - Other specified postprocedural states
[2024-03-22 09:06] VITALS: BP 130/76; PULSE 67; TEMP 36.3; O2SAT 98; BMI 24.4
--- OUTSIDE RECORDS SUMMARY | 2024-03-22 09:09 | XMS_ITS | Clinical Summary ---
Author Organization [facility] Address [address] [place] [address] Care Team Providers Care Paper Pattern Inspector Name Role Phone Unavailable Primary Care Provider Unavailabl e Source Comments PLEASE NOTE, if this patient is a minor, it may be UNLAWFUL to discuss sensitive information that is contained in these records (such as FAMILY PLANNING, MENTAL HEALTH or SUBSTANCE ABUSE) with the minor patient's parent or other person without the patient's specific authorization.[facility] Immunizations Name Administration Dates Next Due Moderna COVID-19 Vaccine, re d cap blue label, 12+ Primary Series 06/12/2020,05/15/2020 Social History Tobacco Use Types Packs/Day Years Used Date Smoking Tobacco: Never Assessed Social Connections Answer Date Recorded Social Connections and Isolation 0 05/15/2020 Financial Resource Strain Answer Date R ecorded Financial Resource Strain 0 2020 Stress Answer Date Recorded Stress 0 05/15/2020 Physical Activity Answer Date Recorded Physical Activity 0 05/15/2020 Food Insecurity Answer Date Recorded Food 0 05/15/2020 Transportation Needs Answer Date Record ed Transportation 0 05/15/2020 Housing Stability Answer Date Recorded Housing 0 05/15/2020 Safety and Environment Answer Date Cuauhtemoc rded Safety 0 05/15/2020 Utilities Answer Date Recorded Utilities 0 05/15/2020 Employment Answer Date Recorded Employment 0 05/15/2020 Comments Unknown Sex and Gender Information Value Date Recorded Sex Assigned at Not on file Legal Sex Female 7:28 AM PDT Gender Identity Not on file Sexual Orientation Not on file Plan of Treatment Health Maintenance Due Date Last Done Comments Diabetes Screening 1955 Hepatitis C Screening 1956 Lipid Screening 1956 Tobacco Screening 1956 Annual Preventive Care Visit 1974 Hypertension Screening (#1) 1974 Breast Cancer Screening (Mammogram) 1996 CT Colonography 2001 Colonoscopy 2001 Colorectal Cancer Screening 2001 FIT/gFOBT 2001 Fecal DNA 2001 Flexible Sigmoidoscopy 2001 Imm-Zoster, Recombinant (1 of 2) 2006 Bone Density Screening 2021 Falls Prevention 2021 Imm-Pneumococcal 65+ (1 of 1 - PCV) 2021 Alcohol and Drug Screen 02/15/2023 Depression Annual Screen 02/15/2023 [id number] ( season) 2023 021, 05/15/2020 Imm-Influenza (#1) 2023 12/02/2019, 1 03/04/2018, 04/03/2017 Imm-DTaP/Tdap/Td (2 - Td or Tdap) 01/02/2029 019 Insurance HNE ([facility]) Member Subscriber Plan / Payer (Ef fective 2020-Present) Name:Jeanna Loving Relation to Subscriber:Self Name:Jeanna Loving Payer ID:[id number] Type:Indemnity Address: [address] [place] [address]
== END 2024-03-22 09:38 | disposition home or self-care (01) ==
PROVIDERS: PCP Internal Medicine
DX: Z98.890 Other specified postprocedural states (principal); Z87.19 Personal history of other diseases of the digestive system; K44.9 Diaphragmatic hernia without obstruction or gangrene; K21.9 Gastro-esophageal reflux disease without esophagitis; I10 Essential (primary) hypertension

== ENCOUNTER 2024-08-02 07:23 | Outpatient (REF) | payer MEDICARE, SELFPAY ==
--- NOTE | ~2024-08-02 | MM_ITS ---
EXAMINATION: MM SCREENING DIGITAL BREAST TOMOSYNTHESIS, BILATERAL CLINICAL INFORMATION: Screening. Asymptomatic. COMPARISON: Mammography: Comparison is made with available priors TECHNIQUE: Digital breast mammography with tomosynthesis is performed in both the craniocaudal and mediolateral oblique views along with computer-aided detection (CAD). FINDINGS: There are scattered areas of fibroglandular density (ACR BI-RADS breast composition Category b). Left Marker clip. Previous left breast post surgical changes. There are no significant masses, abnormal calcifications, or other abnormalities. MM/MM tomosynthesis screening BI IMPRESSION: No mammographic evidence of malignancy. ASSESSMENT: BI-RADS BI-RADS 2 - Benign Findings RECOMMENDATION: Routine annual mammography screening. 1 year F/U This examination should not preclude the clinical evaluation of a suspicious palpable abnormality. This patient's information was entered into a reminder system with a target due date for their next mammogram. Electronically signed by: Ginger Rod DO 08/07/2024 11:58 AM EDT
--- OUTSIDE RECORDS SUMMARY | 2024-08-02 07:26 | XMS_ITS | Clinical Summary ---
Author Organization [facility] Address [address] [place] [address] Care Team Providers Care Suction Roller Name Role Phone Unavailable Primary Care Provider Unavailabl e Source Comments PLEASE NOTE, if this patient is a minor, it may be UNLAWFUL to discuss sensitive information that is contained in these records (such as FAMILY PLANNING, MENTAL HEALTH or SUBSTANCE ABUSE) with the minor patient's parent or other person without the patient's specific authorization.[facility] Immunizations Immunization Administration Dates Next Due Moderna COVID-19 Vaccine, [...] 1956 Lipid Screening 1956 Tobacco Screening 1956 Hypertension Screening (#1) 1974 Breast Cancer Screening (Mammogram) 1996 CT Colonography 2001 Colonoscopy 2001 Colorectal Cancer Screening 2001 FIT/gFOBT 2001 Fecal DNA 2001 Flexible Sigmoidoscopy 2001 Imm-Pneumococcal 65+ (1 of 1 - PCV) 2006 Imm-Zoster, Recombinant (1 of 2) 2006 Bone Density Screening 2021 Falls Prevention 2021 [id number] (3 - season) 10/17/202306/12/ 021, 05/15/2020 Imm-Influenza (#1) 2023 12/02/2019, 1 03/04/2018, 04/03/2017 Alcohol and Drug Screen 02/16/2024 Depression Annual Screen 02/16/2024 Imm-DTaP/Tdap/Td (2 - Td or Tdap) 01/02/2029 019 Insurance H[employer] ([facility]) Member Subscriber Plan / Payer (Ef fective 2020-Present) Name:Jeanna Loving Relation to Subscriber:Self Name:Jeanna Loving Payer ID:[id number] Type:Indemnity Address: [address] [place] [address]
== END 2024-08-02 07:24 | disposition home or self-care (01) ==
LOC: HO.MAMMO 07:23
PROVIDERS: PCP Internal Medicine; Visit Provider Internal Medicine
DX: Z12.31 Encounter for screening mammogram for malignant neoplasm of breast (principal)
CPT/HCPCS: 77063; 77067

== ENCOUNTER → 2024-08-02 07:30 | Outpatient (BNV) | payer MEDICARE, SELFPAY | PROVIDERS: PCP Internal Medicine; Visit Provider Internal Medicine | DX: Z12.31 Encounter for screening mammogram for malignant neoplasm of breast (principal) | CPT/HCPCS: 77063; 77067 ==